=== PATIENT | male | born 1970 | race Caucasian/White ===

== ENCOUNTER 2019-05-02 10:22 | Outpatient (CLI) | payer MEDICARE, MEDICAID, SELFPAY ==
[2019-05-02 11:45] LABS: Alanine Aminotransferase 64 U/L (0-33); Albumin Level 4.2 g/dL (3.5-5.2); Alkaline Phosphatase 123 IU/L (35-105); Anion Gap 16.1 (5-19); Aspartate Amino Transferase 47 U/L (0-32); Blood Urea Nitrogen 11 mg/dL (6-20); Calcium 9.8 mg/Dl (8.6-10.0); Carbon Dioxide 25 mmol/L (22-29); Chloride 101 mmol/L (98-107); Free T4 Free Thyroxine 1.63 ng/dL (0.82-1.77); Globulin 3.2 g/dL (1.3-4.6); Glomerular Filtration Rate 71.8 mL/min (90-130); Glucose 102 mg/dL (74-109); Potassium 4.1 mmol/L (3.5-5.1); Sodium 138 mmol/L (136-145); Total Bilirubin 0.5 mg/dL (0.15-1.2); Total Protein 7.4 g/dL (6.6-8.7)
[2019-05-02 11:47] LABS: Testosterone Total 693.1 ng/dL (8.4-48.1)
[2019-05-03 15:11] LABS: Rapid Plasma Reagin Syphilis Nonreactive (Nonreactive)
== END 2019-05-02 10:23 | disposition home or self-care (01) ==
PROVIDERS: Family Provider Family Medicine; PCP Family Medicine; Visit Provider Family Medicine
DX: F64.0 Transsexualism (principal)
CPT/HCPCS: 36415; 80053; 84403; 84439; 86592

== ENCOUNTER → 2019-05-09 09:44 | Outpatient (BNVA) | payer MEDICARE, MEDICAID, SELFPAY | PROVIDERS: Family Provider Family Medicine; PCP Family Medicine; Visit Provider Family Medicine | DX: E55.9 Vitamin D deficiency, unspecified (principal); R03.0 Elevated blood-pressure reading, without diagnosis of hypertension; E03.9 Hypothyroidism, unspecified | CPT/HCPCS: 36415; 80053; 80061; 84443; 85025 ==

== ENCOUNTER → 2019-05-16 15:33 | Outpatient (BNVA) | payer MEDICARE, MEDICAID, SELFPAY | PROVIDERS: Family Provider Family Medicine; PCP Family Medicine; Visit Provider Family Medicine | DX: R73.09 Other abnormal glucose (principal) | CPT/HCPCS: 83036 ==

== ENCOUNTER → 2019-06-06 12:46 | Outpatient (BNVA) | payer MEDICARE, MEDICAID, SELFPAY | PROVIDERS: Family Provider Family Medicine; PCP Family Medicine; Visit Provider Nurse Practitioner Psychiatric/Mental Health | DX: F33.41 Major depressive disorder, recurrent, in partial remission (principal); F41.8 Other specified anxiety disorders; F43.12 Post-traumatic stress disorder, chronic; F41.1 Generalized anxiety disorder; F44.81 Dissociative identity disorder; G47.33 Obstructive sleep apnea (adult) (pediatric) | CPT/HCPCS: 99213 ==

== ENCOUNTER → 2019-07-20 09:24 | Outpatient (BNVA) | payer MEDICARE, MEDICAID, SELFPAY | PROVIDERS: Family Provider Family Medicine; PCP Family Medicine; Visit Provider Internal Medicine Rheumatology | DX: Z79.899 Other long term (current) drug therapy (principal); Z11.59 Encounter for screening for other viral diseases; E55.9 Vitamin D deficiency, unspecified; Z11.1 Encounter for screening for respiratory tuberculosis; M19.90 Unspecified osteoarthritis, unspecified site; Z72.89 Other problems related to lifestyle | CPT/HCPCS: 36415; 80076; 82306; 82565; 84550; 85025; 85651; 86140; 86431; 86480; 86704; 86803; 86812; 87340 ==

== ENCOUNTER → 2019-07-20 09:49 | Outpatient (BNVA) | payer MEDICARE, MEDICAID, SELFPAY | PROVIDERS: Family Provider Family Medicine; PCP Family Medicine; Visit Provider Internal Medicine Rheumatology | DX: E55.9 Vitamin D deficiency, unspecified (principal); Z79.899 Other long term (current) drug therapy; M19.90 Unspecified osteoarthritis, unspecified site; Z11.59 Encounter for screening for other viral diseases | CPT/HCPCS: 85025 ==

== ENCOUNTER → 2019-08-03 08:15 | Outpatient (BNVA) | payer MEDICARE, MEDICAID, SELFPAY | PROVIDERS: Family Provider Family Medicine; PCP Family Medicine; Visit Provider Nurse Practitioner Psychiatric/Mental Health | DX: F33.41 Major depressive disorder, recurrent, in partial remission (principal); F41.8 Other specified anxiety disorders; F43.12 Post-traumatic stress disorder, chronic; F41.1 Generalized anxiety disorder; F44.81 Dissociative identity disorder; G47.33 Obstructive sleep apnea (adult) (pediatric); F17.210 Nicotine dependence, cigarettes, uncomplicated | CPT/HCPCS: 99213 ==

== ENCOUNTER 2019-09-11 09:59 | Outpatient (CLI) | payer MEDICARE, MEDICAID, SELFPAY ==
[2019-09-11 10:47] LABS: Alanine Aminotransferase 89 U/L (0-33); Albumin Level 4.3 g/dL (3.5-5.2); Alkaline Phosphatase 120 IU/L (35-105); Anion Gap 15.1 (5-19); Aspartate Amino Transferase 64 U/L (0-32); Blood Urea Nitrogen 9 mg/dL (6-20); Calcium 9.7 mg/dL (8.5-10.5); Carbon Dioxide 26 mmol/L (22-29); Chloride 104 mmol/L (98-107); Globulin 3.3 g/dL (1.3-4.6); Glomerular Filtration Rate 80.1 mL/min (90-130); Glucose 112 mg/dL (65-115); Osmolality Calculated 289 mOsm/kg (285-295); Potassium 4.1 mmol/L (3.5-5.1); Sodium 141 mmol/L (136-145); Thyroid Stimulating Hormone 1.56 uIU/mL (0.27-4.20); Total Bilirubin 0.6 mg/dL (0.15-1.2); Total Protein 7.6 g/dL (6.6-8.7)
[2019-09-14 23:01] LABS: Testosterone, Free 47.6 pg/mL
== END 2019-09-11 10:00 | disposition home or self-care (01) ==
LOC: LAB 10:05
PROVIDERS: Family Provider Family Medicine; PCP Family Medicine; Visit Provider Family Medicine
DX: Z01.89 Encounter for other specified special examinations (principal)
CPT/HCPCS: 36415; 80053; 84402; 84443

== ENCOUNTER → 2019-10-04 08:11 | Outpatient (BNVA) | payer MEDICARE, MEDICAID, SELFPAY | PROVIDERS: Family Provider Family Medicine; PCP Family Medicine; Visit Provider Nurse Practitioner Psychiatric/Mental Health | DX: F33.41 Major depressive disorder, recurrent, in partial remission (principal); F41.8 Other specified anxiety disorders; F43.12 Post-traumatic stress disorder, chronic; F41.1 Generalized anxiety disorder; F44.81 Dissociative identity disorder; G47.33 Obstructive sleep apnea (adult) (pediatric) | CPT/HCPCS: 99213 ==

== ENCOUNTER → 2019-10-18 09:56 | Outpatient (BNVA) | payer MEDICARE, MEDICAID, SELFPAY | PROVIDERS: Family Provider Family Medicine; PCP Family Medicine; Visit Provider Internal Medicine Rheumatology | DX: Z79.899 Other long term (current) drug therapy (principal); M19.90 Unspecified osteoarthritis, unspecified site | CPT/HCPCS: 36415; 80076; 82565; 85025; 85651; 86140 ==

== ENCOUNTER → 2019-11-16 08:28 | Outpatient (BNVA) | payer MEDICARE, MEDICAID, SELFPAY | PROVIDERS: Family Provider Family Medicine; PCP Family Medicine; Visit Provider Nurse Practitioner Psychiatric/Mental Health | DX: F33.41 Major depressive disorder, recurrent, in partial remission (principal); F41.8 Other specified anxiety disorders; F43.12 Post-traumatic stress disorder, chronic; F41.1 Generalized anxiety disorder; F44.81 Dissociative identity disorder; G47.33 Obstructive sleep apnea (adult) (pediatric) | CPT/HCPCS: 99213 ==

== ENCOUNTER → 2019-12-13 11:44 | Outpatient (BNVA) | payer MEDICARE, MEDICAID, SELFPAY | PROVIDERS: Family Provider Family Medicine; PCP Family Medicine; Visit Provider Internal Medicine Rheumatology | DX: M02.30 Reiter's disease, unspecified site (principal); Z79.899 Other long term (current) drug therapy; K75.81 Nonalcoholic steatohepatitis (NASH) | CPT/HCPCS: 36415; 80076; 82565; 85025; 85651; 86140; 99214 ==

== ENCOUNTER 2019-12-20 08:22 | Outpatient (CLI) | payer MEDICARE, MEDICAID, SELFPAY ==
--- NOTE | 2019-12-20 09:00 | XR_ITS ---
WS: [id number] RIGHT FOOT: 3 VIEW(S) TECHNIQUE: AP, oblique and lateral. HISTORY: inflammatory arthritis COMPARISON: None available. No acute fracture or dislocation. Mild narrowing of the first metatarsophalangeal joint. Small subchondral erosions along the joint torey e. No terminal tuft erosion. No additional erosions along the joint line margins. There is a calcific density in the posterior ankle along the Achilles tendon. XR/XR foot RT min 3V* [id number] IMPRESSION: 1. Mild osteoarthritis. 2. 19 mm calcific density in the distal Achilles tendon is probably from a meño or injury.
--- NOTE | 2019-12-20 09:30 | XR_ITS ---
WS: [id number] LEFT FOOT: 3 VIEW(S) TECHNIQUE: AP, oblique and lateral. HISTORY: inflammatory arthritis COMPARISON: 05/22/2018 No acute fracture or dislocation. Normal tarsal/metatarsal alignment. No soft tissue abnormality or bone destruction. Small calcaneal spur. XR/XR foot LT min 3V* [id number] IMPRESSION: Small calcaneal spur. No erosions.
--- NOTE | 2019-12-20 10:00 | XR_ITS ---
WS: [id number] RIGHT HAND: 3 VIEW(S) TECHNIQUE: PA, oblique and lateral. HISTORY: inflammatory arthritis COMPARISON: None available. No acute fracture or dislocation. Mild interphalangeal joint space narrowing. No metacarpal head erosions. Mild narrowing of the carpal rows. No osteopenia. XR/XR hand RT min 3V* [id number] IMPRESSION: Mild osteoarthritis.
--- NOTE | 2019-12-20 10:30 | XR_ITS ---
WS: [id number] LEFT HAND: 3 VIEW(S) TECHNIQUE: PA, oblique and lateral. HISTORY: inflammatory arthritis COMPARISON: None available. Mild interphalangeal joint space narrowing. No erosion or subluxation. No osteopenia or soft tissue e clau. XR/XR hand LT min 3V* [id number] IMPRESSION: Mild osteoarthritis. No inflammatory erosions.
--- NOTE | 2019-12-20 11:00 | XR_ITS ---
WS: [id number] CHEST 2 VIEWS HISTORY: inflammatory arthritis COMPARISON: None available. Lungs: Clear with no abnormality. No pleural effusion or pneumothorax. Cardiac size: Normal. Mediastinum/Aorta: Normal mediastinum. Bones: Normal. XR/XR chest 2V* [id number] IMPRESSION: Normal chest.
== END 2019-12-20 08:23 | disposition home or self-care (01) ==
LOC: RADWPI 08:26
PROVIDERS: Family Provider Internal Medicine; PCP Internal Medicine; Visit Provider Internal Medicine Rheumatology
DX: M19.90 Unspecified osteoarthritis, unspecified site (principal); M19.042 Primary osteoarthritis, left hand; M19.041 Primary osteoarthritis, right hand; M77.32 Calcaneal spur, left foot; M19.071 Primary osteoarthritis, right ankle and foot
CPT/HCPCS: 71046; 73130; 73630

== ENCOUNTER → 2019-12-21 08:26 | Outpatient (BNVA) | payer MEDICARE, MEDICAID, SELFPAY | PROVIDERS: Family Provider Internal Medicine; PCP Internal Medicine; Visit Provider Nurse Practitioner Psychiatric/Mental Health | DX: F33.41 Major depressive disorder, recurrent, in partial remission (principal); M02.30 Reiter's disease, unspecified site; F41.8 Other specified anxiety disorders; F43.12 Post-traumatic stress disorder, chronic; F41.1 Generalized anxiety disorder; F44.81 Dissociative identity disorder; G47.33 Obstructive sleep apnea (adult) (pediatric) | CPT/HCPCS: 96372; 99213; G0463 ==

== ENCOUNTER 2020-01-19 15:35 | Emergency (ER) | payer MEDICARE, MEDICAID, SELFPAY ==
[2020-01-19 15:42] VITALS: BP 120/79; PULSE 96; RESP 18; TEMP 37.1; O2SAT 96; BMI 34.9
[2020-01-19 18:43] VITALS: BP 166/83; PULSE 78; RESP 16; O2SAT 94
--- NOTE | 2020-01-19 19:06 | XRR_ITS ---
PROCEDURE INFORMATION: Exam: XR Chest, 1 View Exam date and time: 01/19/2020 8:03 PM Age: 49 years old Clinical indication: Patient HX: Chest pain (mid chest) TECHNIQUE: Imaging protocol: XR of the chest Views: 1 view. COMPARISON: CR XR chest 2V* [id number] 12/20/2019 8:38 AM FINDINGS: Lungs: Lungs are clear bilaterally. Pleural space: No pleural effusion. No pneumothorax. Heart/Mediastinum: Stable mild enlargement of the cardiac silhouette. Mediastinal contours are unremarkable. Bones/joints: Unremarkable for age. XR/XR chest 1V portable [id number] IMPRESSION: 1. No acute cardiopulmonary process. 2. Incidental/nonacute findings are listed in the report.
--- NOTE | 2020-01-19 19:06 | ECG_ITS ---
[facility] Test Date: 2020-01-19 Pat Name: Nasim Samano Department: Room: Gender: Male Dispatcher Relay: : 1970 Requested By: Tone Oviedo I Order Number: [id number] Debi MD: Sarah Schreiber M.D. Measurements Intervals [place] Rate: 81 P: 54 DE: 146 QRS: 128 QRSD: 121 T: 45 QT: 366 QTc: 425 Interpretive Statements SINUS RHYTHM WITH SINUS ARRHYTHMIA INDETERMINATE AXIS RIGHT BUNDLE BRANCH BLOCK [120+ ms QRS DURATION, UPRIGHT V1, 40+ ms S IN I/aVL/V4/V5/V6] LEFT POSTERIOR FASCICULAR BLOCK [QRS AXIS > 109, INFERIOR Q] No previous ECG available for comparison Electronically Signed On 01-20-2020 17:03:06 CDT by Sarah Schreiber M.D. [id number]
[2020-01-19 20:24] LABS: Basophils # 0.1 10^3/uL (0.0-0.1); Basophils % 0.9 %; Eosinophils # 0.5 10^3/uL (0.0-0.8); Eosinophils % 5.5 %; Hematocrit 49.5 % (42.0-52.0); Hemoglobin 16.1 g/dL (11.7-16.6); Lymphocytes # 3.7 10^3/uL (0.8-4.8); Lymphocytes % 38.8 %; Mean Corpuscular HGB Conc 32.5 g/dL (30.0-36.0); Mean Corpuscular Hemoglobin 31.2 pg (28.0-34.0); Mean Corpuscular Volume 95.9 fL (80-94); Mean Platelet Volume 9.4 fL (7.4-10.4); Monocytes # 0.9 10^3/uL (0.2-0.9); Monocytes % 9.3 %; Neutrophils # 4.31 10^3/uL (1.8-7.7); Neutrophils % 45.2 %; Nucleated Red Blood Cells % 0 %; Platelet Count 294 10^3/cmm (130-400); Red Blood Count 5.16 10^6/uL (4.1-5.3); Red Cell Distribution Width 12.4 % (12.1-15.1); White Blood Count 9.6 10^3/uL (4.0-10.0)
[2020-01-19 20:48] LABS: Alanine Aminotransferase 118 U/L (0-41); Albumin Level 4.5 g/dL (3.5-5.2); Alkaline Phosphatase 133 IU/L (40-130); Aspartate Amino Transferase 101 U/L (0-40); Blood Urea Nitrogen 12 mg/dL (6-20); Calcium 9.4 mg/dL (8.5-10.5); Carbon Dioxide 26 mmol/L (22-29); Chloride 105 mmol/L (98-107); Globulin 2.8 g/dL (1.3-4.6); Glomerular Filtration Rate 90.4 mL/min (90-130); Glucose 93 mg/dL (65-115); Osmolality Calculated 291 mOsm/kg (285-295); Sodium 141 mmol/L (136-145); Total Bilirubin 0.6 mg/dL (0.15-1.2); Total Protein 7.3 g/dL (6.6-8.7)
[2020-01-19 20:52] LABS: Troponin(5th) Baseline 6 ng/L (0-15)
[2020-01-19 20:59] LABS: Anion Gap 14.1 (5-19); Potassium 4.1 mmol/L (3.5-5.1)
--- NOTE | 2020-01-19 21:06 | ECG_ITS ---
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 Measurements Intervals [place] Rate: 75 P: 62 HI: 168 QRS: 93 QRSD: 114 T: 56 QT: 382 QTc: 427 Interpretive Statements SINUS RHYTHM WITH SINUS ARRHYTHMIA BORDERLINE RIGHT AXIS DEVIATION [QRS AXIS > 90] INCOMPLETE RIGHT BUNDLE BRANCH BLOCK [90+ ms QRS DURATION, TERMINAL R IN V1/V2, 40+ ms S IN I/aVL/V4/V5/V6] No previous ECG available for comparison Electronically Signed On 01-20-2020 17:03:19 CDT by Sarah Schreiber M.D. [id number]
[2020-01-19 21:37] VITALS: BP 138/102; PULSE 68; RESP 18; O2SAT 96
--- NOTE | 2020-01-19 21:38 | PC.NURSE ---
EKG done at 2136 shown to ER doctor
--- NOTE | 2020-01-19 21:48 | USR_ITS ---
PROCEDURE INFORMATION: Exam: US Abdomen, Limited; Right Upper Quadrant Exam date and time: 01/19/2020 9:49 PM Age: 49 years old Clinical indication: Other: Chest pain; Additional info: Chest pain, elevated liver enzymes TECHNIQUE: Imaging protocol: US abdomen. Real time ultrasound with image documentation. Limited exam focused on the right upper quadrant. COMPARISON: US gall bladder [id number] 05/03/2018 9:48 AM FINDINGS: Liver: Slight increased echogenicity of the liver may indicate fatty infiltration. Otherwise unremarkable liver, no focal abnormality. Gallbladder: No cholelithiasis. No gallbladder wall thickening or pericholecystic fluid. The gallbladder does not appear abnormally distended at this time. Common bile duct: No biliary dilation, common duct measures about 5 mm. Pancreas: Visible pancreas unremarkable. Some of the pancreas is obscured by bowel gas. Right kidney: Images of the right kidney show no hydronephrosis. US/US gall bladder [id number] IMPRESSION: 1. No cholelithiasis or biliary tree dilation. 2. Possible fatty infiltration of the liver. 3. Other findings discussed above.
[2020-01-19 21:54] VITALS: BP 163/101; PULSE 66; RESP 18; O2SAT 97
--- NOTE | 2020-01-19 21:59 | ED_ITS ---
HPI - Chest Pain General: Chief Complaint: Chest Pain Stated Complaint: Cardiac Complications/sent by [facility] Time Seen by Provider: 01/19/20 21:06 Source: patient Mode of arrival: ambulatory Limitations: no limitations History of Present Illness: HPI narrative: Patient has been feeling unwell for several days and went to see his primary care provider today. He has had some left-sided chest pain with radiation down his left arm. His PCP performed an EKG and he and they were concerned and so sent him here for evaluation. Currently he is chest pain-free MD complaint: chest pain Onset (ago): day(s) Timing of current episode: episodic Prior episodes: No Onset: during rest Pain location: left chest Pain radiation: left arm Severity: moderate Quality: heaviness Relieving factors: nothing Exacerbating factors: nothing Associated symptoms: Reports nausea; Deny abdominal pain, diaphoresis, dyspnea, fever(s), leg edema, palpitations, sense of impending doom, syncope or vomiting Review of Systems General: Reports: 10 or more systems reviewed and unremarkable except in HPI and below Const: Denies: fever(s) or diaphoresis Eyes: Denies: change in vision or blurry vision ENMT: Denies: throat pain, enlarged tonsils, odynophagia, hoarseness, mouth pain or swelling of lips/tongue Card: Denies: palpitations or syncope Resp: Denies: dyspnea GI: Reports: nausea; Denies: abdominal pain or vomiting : Denies: flank pain, dysuria, urinary frequency, urinary urgency or urinary hesitancy Musc: Denies: neck pain, back pain or extremity swelling Skin/Breast: Denies: rash, pruritus or erythema Neuro: Denies: headache(s), numbness in extremities or weakness in extremities Endo: Denies: polyuria, polydipsia or tired all the time PFSH ED PFSH: Medical History Acute gastritis without bleeding Chronic joint pain Chronic post-traumatic stress disorder Dissociative identity disorder Elevated hemoglobin Elevated testosterone level Enrolled in chronic care management Generalized anxiety disorder High risk medication use Hypothyroidism Immunization counseling Inflammatory arthritis Major depressive disorder, recurrent episode, in partial remission with anxious distress MÉNDEZ (nonalcoholic steatohepatitis) Obstructive sleep apnea DAVONTE on CPAP Reactive arthritis Teresa's syndrome Vitamin D deficiency Surgical History H/O bilateral breast reduction surgery H/O rhinoplasty H/O thyroidectomy H/O: hysterectomy Family History Other Cancer Diabetes Denies family history of Anesthesia complication Bleeding disorder Social History Smoking and tobacco status: never smoked Alcohol intake: never Lives independently: Yes Marital status: Single Current occupational status: student Pets and animals: Yes (service dog and cat) Pets & animals: cat(s) and dog(s) History of recent travel: No Current gender identity: Trans [id number] Physical Exam Const: COMMON NORMALS: no acute distress, average body habitus, patient oriented x3, no limitations, healthy appearing, alert and well nourished HENMT: COMMON NORMALS: normocephalic, atraumatic and moist oral mucous membranes HEAD & SCALP: normocephalic and atraumatic Neck/C-Spine: COMMON NORMALS: no meningeal signs and no JVD Resp: COMMON NORMALS: normal respiratory effort, No retractions, No use of accessory muscles, clear to auscultation bilaterally and percussion normal AUSCULTATION: clear to auscultation bilaterally PERCUSSION: percussion normal Cardio: COMMON NORMALS: no JVD, regular rate, regular rhythm, S1 normal heart sound present, S2 normal heart sound present, No gallops present (Cardio), No clicks present (Cardio), No murmurs present (Cardio), No rub (Cardio) and Flori pheral pulses 2+ throughout RATE: regular rate RHYTHM: regular rhythm HEART SOUNDS: S1 normal heart sound present and S2 normal heart sound present PERIPHERAL PULSES: Peripheral pulses 2+ throughout GI: COMMON NORMALS: Normal to inspection, nondistended, normoactive bowel sounds present, Soft to palpation, non-tender, No hepatosplenomegaly present, no masses and no bruits PALPATION: Yes Soft to palpation and Yes No hepatosplenomegaly present Extremity: COMMON NORMALS: normal to inspection, full ROM, capillary refill normal, no calf tenderness and no pedal edema Neuro: COMMON NORMALS: patient oriented x3 SENSORIUM/ORIENTATION: Yes alert MENINGEAL SIGNS: Yes no meningeal signs Skin: COMMON NORMALS: no rashes or lesions noted, no wounds, turgor normal, no jaundice, no petechiae and no mottling GENERAL SKIN EXAM: no rashes or lesions noted and turgor normal Course Reevaluation(s): Reevaluation #1: Discussed his lab and imaging findings with him. Repeat troponin negative as well as his baseline. He has elevated liver enzymes and so had ordered an ultrasound which turned out to be negative but showed some fatty liver. 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 We will discharge him home with no new orders as he has no cardiac cause for his chest pain. He voiced understanding and is in agreement with the plan Time: 23:33 Vital Signs: Vital signs: Vital Signs Temperature 98.7 F 01/19/20 15:42 Pulse Rate 66 01/19/20 21:54 Respiratory Rate 18 01/19/20 21:54 Blood Pressure 163/101 01/19/20 21:54 Pulse Oximetry 97 01/19/20 21:54 MDM - Chest Pain MDM Narrative: Medical decision making narrative: Patient who went to see his primary care provider today and they were concerned that the patient had a cardiac event. He was sent here for evaluation however evaluation was negative with negative high-sensitivity troponin x2. Liver enzymes are little elevated and a gallbladder ultrasound done was negative for gallbladder disease. He however has fatty liver and the patient knows that and follows with his primary care provider for these. He is therefore discharged home with no new orders. Medical Records: Attestation: I reviewed the patient's medical records. Lab Data: Attestation: I reviewed the patient's lab results. Labs: Lab Results 01/19/20 01/19/20 01/19/20 Range/Units 19:53 19:53 19:53 WBC 9.6 (4.0-10.0) 10^3/ uL RBC 5.16 (4.1-5.3) 10^6/u L Hgb 16.1 (11.7-16.6) g/dL Hct 49.5 (42.0-52.0) % MCV 95.9 H (80-94) fL MCH 31.2 (28.0-34.0) pg MCHC 32.5 (30.0-36.0) g/dL RDW 12.4 (12.1-15.1) % Plt Count 294 (130-400) 10^3/c mm MPV 9.4 (7.4-10.4) fL Neut % (Auto) 45.2 % Lymph % (Auto) 38.8 % Riley % (Auto) 9.3 % Eos % (Auto) 5.5 % Baso % (Auto) 0.9 % Neut # (Auto) 4.31 (1.8-7.7) 10^3/u L Lymph # (Auto) 3.7 (0.8-4.8) 10^3/u L Riley # (Auto) 0.9 (0.2-0.9) 10^3/u L Eos # (Auto) 0.5 (0.0-0.8) 10^3/u L Baso # (Auto) 0.1 (0.0-0.1) 10^3/u L Nucleated RBC % (a uto) 0 % Nucleated RBCs # 0.0 /100WBC Sodium 141 (136-145) mmol/L Potassium 4.1 (3.5-5.1) mmol/L Chloride 105 (98-107) mmol/L Carbon Dioxide 26 (22-29) mmol/L Anion Gap 14.1 (5-19) BUN 12 (6-20) mg/dL Creatinine 0.9 (0.7-1.2) mg/dL GFR Calculation 90.4 (90-130) mL/min Glucose 93 (65-115) mg/dL Calculated Osmolal ity 291 (285-295) mOsm/k g Calcium 9.4 (8.5-10.5) mg/dL Total Bilirubin 0.6 (0.15-1.2) mg/dL AST 101 H (0-40) U/L ALT 118 H (0-41) U/L Alkaline Phosphata se 133 H (40-130) IU/L Troponin T Baselin e 6 (0-15) ng/L Troponin T 120 Min [place] (0-15) ng/L Delta Troponin T (0-10) ABS# Total Protein 7.3 (6.6-8.7) g/dL Albumin 4.5 (3.5-5.2) g/dL Globulin 2.8 (1.3-4.6) g/dL 01/19/20 Range/Units 21:53 WBC (4.0-10.0) 10^3/ uL RBC (4.1-5.3) 10^6/u L Hgb (11.7-16.6) g/dL Hct (42.0-52.0) % MCV (80-94) fL MCH (28.0-34.0) pg MCHC (30.0-36.0) g/dL RDW (12.1-15.1) % Plt Count (130-400) 10^3/c mm MPV (7.4-10.4) fL Neut % (Auto) % Lymph % (Auto) % Riley % (Auto) % Eos % (Auto) % Baso % (Auto) % Neut # (Auto) (1.8-7.7) 10^3/u L Lymph # (Auto) (0.8-4.8) 10^3/u L Riley # (Auto) (0.2-0.9) 10^3/u L Eos # (Auto) (0.0-0.8) 10^3/u L Baso # (Auto) (0.0-0.1) 10^3/u L Nucleated RBC % (a uto) % Nucleated RBCs # /100WBC Sodium (136-145) mmol/L Potassium (3.5-5.1) mmol/L Chloride (98-107) mmol/L Carbon Dioxide (22-29) mmol/L Anion Gap (5-19) BUN (6-20) mg/dL Creatinine (0.7-1.2) mg/dL GFR Calculation (90-130) mL/min Glucose (65-115) mg/dL Calculated Osmolal ity (285-295) mOsm/k g Calcium (8.5-10.5) mg/dL Total Bilirubin (0.15-1.2) mg/dL AST (0-40) U/L ALT (0-41) U/L Alkaline Phosphata se (40-130) IU/L Troponin T Baselin e (0-15) ng/L Troponin T 120 Min [place] 6.00 (0-15) ng/L Delta Troponin T 0 (0-10) ABS# Total Protein (6.6-8.7) g/dL Albumin (3.5-5.2) g/dL Globulin (1.3-4.6) g/dL Imaging Data^: CXR: Radiologist's impression: [place] [address] XRay Report Signed Patient: Declan Samano #: [id number] : 1970Acct#:[id number] Age/Sex: 49 / MADM Date: 01/19/20 Loc: ERRoom/Bed: Attending Dr: Ordering Provider/Ordering MD: Nick Fuller DO Date of Service: 01/19/20 Procedure(s): XR chest 1V portable [id number] Accession Number(s): [id number] Report Number: [id number] PROCEDURE INFORMATION: Exam: XR Chest, 1 View Exam date and time: 01/19/2020 8:03 PM Age: 49 years old Clinical indication: Patient HX: Chest pain (mid chest) TECHNIQUE: Imaging protocol: XR of the chest Views: 1 view. COMPARISON: CR XR chest 2V* [id number] 12/20/2019 8:38 AM FINDINGS: Lungs: Lungs are clear bilaterally. Pleural space: No pleural effusion. No pneumothorax. Heart/Mediastinum: Stable mild enlargement of the cardiac silhouette. Mediastinal contours are unremarkable. Bones/joints: Unremarkable for age. XR/XR chest 1V portable [id number] IMPRESSION: 1. No acute cardiopulmonary process. 2. Incidental/nonacute findings are listed in the report. Dictated By:Chary Kuhn MD Signed By:Chary Kuhn MDSigned Date/Time:01/19/202105 DD/ 05 US: Radiologist's impression: [place] [address] Ultrasound Report Signed Patient: Declan Samano #: [id number] : 1970Acct#:[id number] Age/Sex: 49 / MADM Date: 01/19/20 Loc: ERRoom/Bed: Attending Dr: Ordering Provider/Ordering MD: Tone O[place]o MD, [facility] [place] of Service: 01/19/20 Procedure(s): US gall bladder [id number] Accession Number(s): [id number] Report Number: [id number] PROCEDURE INFORMATION: Exam: US Abdomen, Limited; Right Upper Quadrant Exam date and time: 01/19/2020 9:49 PM Age: 49 years old Clinical indication: Other: Chest pain; Additional info: Chest pain, elevated liver enzymes TECHNIQUE: Imaging protocol: US abdomen. Real time ultrasound with image documentation. Limited exam focused on the right upper quadrant. COMPARISON: US gall bladder [id number] 05/03/2018 9:48 AM FINDINGS: Liver: Slight increased echogenicity of the liver may indicate fatty infiltration. Otherwise unremarkable liver, no focal abnormality. Gallbladder: No cholelithiasis. No gallbladder wall thickening or pericholecystic fluid. The gallbladder does not appear abnormally distended at this time. Common bile duct: No biliary dilation, common duct measures about 5 mm. Pancreas: Visible pancreas unremarkable. Some of the pancreas is obscured by bowel gas. Right kidney: Images of the right kidney show no hydronephrosis. US/US gall bladder [id number] IMPRESSION: 1. No cholelithiasis or biliary tree dilation. 2. Possible fatty infiltration of the liver. 3. Other findings discussed above. Dictated By:Yohan Coulter MD Signed By:Yohan Coulter MDSigned Date/Time:01/19/202312 DD/ 11 EKG Data^: EKG 1: Attestation: I personally reviewed and interpreted this EKG as follows: EKG interpretation date: 01/19/20 EKG interpretation time: 15:50 Prior EKG tracings: not available for review Interpretation: Sinus rhythm with sinus arrhythmia. Heart rate 86 bpm. Right bundle branch block. No STEMI. EKG 2: Attestation: I personally reviewed and interpreted this EKG as follows: EKG interpretation date: 01/19/20 EKG interpretation time: 21:29 Prior EKG tracings: available for review Interpretation: Unchanged from earlier today. Heart rate 75 bpm. Sinus rhythm with sinus arrhythmia. Right bundle branch block. No STEMI. Discharge Plan Discharge Patient Disposition: Home Clinical Impression: Non-cardiac chest pain, MÉNDEZ (nonalcoholic steatohepatitis) Condition: Stable Prescriptions: Continued aspirin 81 mg tablet,delayed release (DR/EC) 81 mg PO ONCE RF: 0 testosterone cypionate 200 mg/mL oil 100 mg IM .Every 2 weeks RF: 0 metformin [Glucophage] 500 mg tablet 250 mg PO DAILY RF: 0 chlorpheniramine maleate [ChlorTabs] 4 mg tablet 4 mg PO Q6H PRNRF: 0 mirtazapine 7.5 mg tablet 3.75 mg PO .QHS PRN (Reason: sleep) Qty: 15 RF: 4 hydroxyzine pamoate [Vistaril] 50 mg capsule 50 mg PO BID PRN (Reason: anxiety) Qty: 60 RF: 4 bupropion HCl [Wellbutrin XL] 300 mg tablet extended release 24 hr 300 mg PO QAM Qty: 90 RF: 2 Enbrel Mini 50 mg/mL (1 mL) cartridge 50 mg SUBCUT .weekly Qty: 4 RF: 3 cholecalciferol (vitamin D3) 50,000 unit capsule 50,000 unit PO .EVERY 2 WEEKS Qty: 6 RF: 1 levothyroxine 100 mcg capsule 100 mcg PO DAILY RF: 0 pantoprazole 40 mg tablet,delayed release (DR/EC) 40 mg PO DAILY Qty: 30 RF: 3 (DME) blood-glucose meter [Accu-Chek Cherri Plus Meter] Misc See Rx Instructions .ROUTE .MEDSUPPLY Qty: 1 RF: 0 (DME) Accu-Chek Cherri Plus test strp Strip See Rx Instructions .ROUTE .MEDSUPPLY Qty: 100 RF: 0 montelukast [Singulair] 10 mg tablet 10 mg PO DAILY Qty: 30 RF: 2 prednisone 10 mg tablet See Rx Instructions PO DAILY Qty: 30 RF: 0 Discharge Orders: Discharge Order (Routine); Ordered 01/19/20 Ordered By: Tone Oviedo Referrals: Vaishali Ramirez DO [Primary Care Provider] - 1-3 days Discharge Diet: Usual diet Discharge Activity: Increase activity as tolerated Patient Instructions: Chest Pain (ED), Non-Alcoholic Fatty Liver Disease (ED) Activity Restrictions/Additional Instructions: Return for any new or worsening symptoms. Follow-up with your primary care provider within 3 days. Coding Level of Care Code ED Laboratory Phlebotomist for Abiodung Fwd Exam Comprehensive
[2020-01-19 22:22] LABS: Troponin 5 2HR Delta 0 ABS# (0-10)
[2020-01-19 23:53] VITALS: BP 142/90; PULSE 56; RESP 14; O2SAT 93
== END 2020-01-19 23:54 | disposition home or self-care (01) ==
PROVIDERS: Family Medicine; Emergency Provider Family Medicine; PCP Internal Medicine
DX: R07.89 Other chest pain (principal); K75.81 Nonalcoholic steatohepatitis (NASH); Z79.82 Long term (current) use of aspirin
CPT/HCPCS: 12345; 36415; 71045; 76705; 80053; 84484; 85025; 93005; 99282; 99283

== ENCOUNTER → 2020-01-24 16:12 | Outpatient (BNVA) | payer MEDICARE, MEDICAID, SELFPAY | PROVIDERS: PCP Internal Medicine; Visit Provider Nurse Practitioner | DX: R11.0 Nausea (principal) | CPT/HCPCS: 81000 ==

== ENCOUNTER → 2020-01-29 14:51 | Outpatient (BNVA) | payer MEDICARE, MEDICAID, SELFPAY | PROVIDERS: PCP Internal Medicine; Visit Provider Internal Medicine Rheumatology | DX: M02.30 Reiter's disease, unspecified site (principal); M19.90 Unspecified osteoarthritis, unspecified site; Z79.899 Other long term (current) drug therapy; E55.9 Vitamin D deficiency, unspecified; E11.9 Type 2 diabetes mellitus without complications; N39.0 Urinary tract infection, site not specified; Z79.84 Long term (current) use of oral hypoglycemic drugs | CPT/HCPCS: 99214 ==

== ENCOUNTER → 2020-01-30 08:27 | Outpatient (BNVA) | payer MEDICARE, MEDICAID, SELFPAY | PROVIDERS: Family Provider Internal Medicine; PCP Internal Medicine; Visit Provider Nurse Practitioner Psychiatric/Mental Health | DX: F33.41 Major depressive disorder, recurrent, in partial remission (principal); F41.8 Other specified anxiety disorders; F43.12 Post-traumatic stress disorder, chronic; F41.1 Generalized anxiety disorder; F44.81 Dissociative identity disorder; G47.33 Obstructive sleep apnea (adult) (pediatric) | CPT/HCPCS: 99213 ==

== ENCOUNTER → 2020-02-16 13:46 | Outpatient (BNVA) | payer MEDICARE, MEDICAID, SELFPAY | PROVIDERS: PCP Internal Medicine; Visit Provider Surgery | DX: Z11.59 Encounter for screening for other viral diseases (principal) | CPT/HCPCS: 87635 ==

== ENCOUNTER 2020-02-21 06:04 | Day surgery (SDC) | payer MEDICARE, MEDICAID, SELFPAY ==
[2020-02-16 08:10] VITALS: BMI 34.5
[2020-02-21 06:24] VITALS: BP 140/106; PULSE 103; RESP 18; TEMP 36.1; O2SAT 94
--- NOTE | 2020-02-21 06:40 | ANES.PREANE2 ---
Pre-Anesthetic Assessment Pre-Anesthetic Assessment: Height/Weight: Height 1.78 m Weight 109.316 kg Temp Pulse Resp BP Pulse Ox 97 F L 103 H 18 140/106 94 02/21/20 06:24 02/21/20 06:24 02/21/20 06:24 02/21/20 06:24 02/21/20 06:24 Preop Diagnosis: Blood in stool Proposed Procedure: Operation Date: 02/21/20 07:00 Proposed Procedures p Colonoscopy 18637 R19.5(Not Applicable) - Wilder Gardner MD Familial anesthetic complications: None Was Beta Tee taken within 24 hours: N/A Last intake: Intake Last Liquid Date 02/20/20 Last Liquid Time 22:00 Last Solid Date 02/19/20 Last Solid Time 02:00 Social: Social History: No alcohol and No tobacco Exam: Pre-Anes Outpt Exam: alert, oriented x 3, clear to auscultation bilaterally and regular rate & rhythm Airway: Cervical ROM: WNL MP: 4 Dentition: Full Additional comments: large neck circumference - tongue ring in will remove Pulmonary: Pulmonary: Sleep apnea (cpap) Hepatic: Comments: fatty liver Metabolic: Metabolic: DM and Thyroid (no thyroid) Musc/skel: Comments: ?dislocated ankles Neuropsych: Comments: I have very bad PTSD Anesthetic Plan: ASA status: 2 Anesthesia: MAC Risk of > 500 ml blood loss (7ml/kg in children): No PFSH Anesthesia PFSH: Medical History (Updated 01/29/20 @ 15:44 by Sajan Sharma MD) Acute gastritis without bleeding Chronic joint pain Chronic post-traumatic stress disorder Dissociative identity disorder Elevated hemoglobin Elevated testosterone level Enrolled in chronic care management Generalized anxiety disorder High risk medication use Hypothyroidism Immunization counseling Inflammatory arthritis Major depressive disorder, recurrent episode, in partial remission with anxious distress MÉNDEZ (nonalcoholic steatohepatitis) Obstructive sleep apnea DAVONTE on CPAP Reactive arthritis Teresa's syndrome Urinary tract infection Vitamin D deficiency Surgical History H/O bilateral breast reduction surgery H/O rhinoplasty H/O thyroidectomy H/O: hysterectomy Family History Other Cancer Diabetes Denies family history of Anesthesia complication Bleeding disorder Social History Smoking and tobacco status: never smoked Alcohol intake: never Lives independently: Yes Marital status: Single Current occupational status: student Pets and animals: Yes (service dog and cat) Pets & animals: cat(s) and dog(s) History of recent travel: No Current gender identity: Trans [id number] Data Anesthesia Cardiac Studies: No Data to Display
[2020-02-21 06:41] LABS: Glucose Point of Care 97 mg/dL (70-110)
[2020-02-21] MEDS: sodium chloride 0.9% 1,000 ML 30 ML IV (06:57)
--- NOTE | 2020-02-21 07:05 | P.HP_ITS ---
Same Day Surgery H&P Indication for Procedure/HPI DATE OF PROCEDURE: February 21, 2020 CHIEF COMPLAINT/INDICATIONFOR SURGICAL PROCEDURE: Blood in stool PREOP DIAGNOSIS: Blood in stool PLANNED PROCEDRUE: Operation Date: 02/21/20 07:00 Proposed Procedures p Colonoscopy 24655 R19.5(Not Applicable) - Wilder Gardner MD This is a pleasant 49 years old patient presents with history of blood in stool. Patient is scheduled for a colonoscopy to rule out underlying neoplasia or any other etiologies. ROS All systems have been reviewed negative except as per the above or per problem list Medications/Allergies* Home Medications Medication Instructions Recorded Confirmed Type aspirin 81 mg tablet,delayed 81 mg PO ONCE 04/29/19 02/21/20 History release levothyroxine 100 mcg capsule 100 mcg PO DAILY 07/19/19 02/21/20 History testosterone cypionate 200 mg/mL 100 mg IM .Every 2 weeks ml 07/19/19 02/21/20 History intramuscular oil chlorpheniramine maleate 4 mg 4 mg PO Q6H PRN 11/15/19 02/21/20 History tablet metformin 500 mg tablet 250 mg PO DAILY tab 11/15/19 02/21/20 History Allergies/Adverse Reactions Allergy/AdvReac Type Severity Reaction Status Date / Time Penicillins Allergy Unknown swelling Verified 02/21/20 07:06 diazepam [From Valium] Allergy Unknown Verified 02/21/20 07:06 prazosin Allergy Unknown Verified 02/21/20 07:06 sulfasalazine AdvReac Mild nausea Verified 02/21/20 07:06 vomiting Pertinent History/Comorbid Conditions* Medical History (Updated 01/29/20 @ 15:44 by Sajan Sharma MD) Acute gastritis without bleeding Chronic joint pain Chronic post-traumatic stress disorder Dissociative identity disorder Elevated hemoglobin Elevated testosterone level Enrolled in chronic care management Generalized anxiety disorder High risk medication use Hypothyroidism Immunization counseling Inflammatory arthritis Major depressive disorder, recurrent episode, in partial remission with anxious distress MÉNDEZ (nonalcoholic steatohepatitis) Obstructive sleep apnea DAVONTE on CPAP Reactive arthritis Teresa's syndrome Urinary tract infection Vitamin D deficiency Surgical History (Updated 05/09/19 @ 09:17 by Miriam Carvajal DO) H/O bilateral breast reduction surgery H/O rhinoplasty H/O thyroidectomy H/O: hysterectomy Family History (Updated 01/04/20 @ 10:18 by Vaishali Knight LPN) Diabetes Cancer Denies family history of Anesthesia complication Bleeding disorder Social History Smoking and tobacco status: never smoked Alcohol intake: never Lives independently: Yes Marital status: Single Current occupational status: student Pets and animals: Yes (service dog and cat) Pets & animals: cat(s) and dog(s) History of recent travel: No Current gender identity: Trans [id number] Pertinent Exam Findings alert, oriented x 3, clear to auscultation bilaterally and procedure specific exam findings (Abdominal examination nontender nondistended soft) Recommendations Surgery/Procedure today (Colonoscopy with possible biopsy and possible polypectomy) Coding Level of Care Code Acute Care Transitions Manager for Lisseth Zavaleta
[2020-02-21 07:40] VITALS: BP 123/78; PULSE 79; RESP 18; TEMP 36.9; O2SAT 90
[2020-02-21 08:08] VITALS: BP 128/78; PULSE 72; RESP 16; O2SAT 93
--- NOTE | 2020-02-21 08:10 | ANE.PACU2 ---
Inpatient post-anesthesia follow up: Airway intact: Yes Vital signs: Temperature 98.4 F Pulse Rate 72 Respiratory Rate 16 Blood Pressure 128/78 Pulse Oximetry 93 Oxygen Delivery Me thod Room Air Oxygen Flow Rate 5 Fraction of Inspir ed Oxygen Hydration adequate: Yes Nausea and vomiting: No Pain level: 2 Mental status: Baseline
== END 2020-02-21 08:10 | disposition home or self-care (01) ==
PROVIDERS: PCP Internal Medicine; Visit Provider Surgery
PROC: 0DJD8ZZ Inspection of Lower Intestinal Tract, Via Natural or Artificial Opening Endoscopic (ICD-10-PCS; CPT 45378; principal; 2020-02-21 07:00)
DX: K92.1 Melena (principal); D12.4 Benign neoplasm of descending colon; D12.5 Benign neoplasm of sigmoid colon; K62.1 Rectal polyp; Z79.82 Long term (current) use of aspirin; Z79.84 Long term (current) use of oral hypoglycemic drugs; E03.9 Hypothyroidism, unspecified; G47.33 Obstructive sleep apnea (adult) (pediatric); F41.9 Anxiety disorder, unspecified; M19.90 Unspecified osteoarthritis, unspecified site
CPT/HCPCS: 12345; 36416; 45385; 82962; 88305; J2704; J7030

== ENCOUNTER → 2020-04-01 07:47 | Outpatient (BNVA) | payer MEDICARE, MEDICAID, SELFPAY | PROVIDERS: PCP Internal Medicine; Visit Provider Nurse Practitioner Psychiatric/Mental Health | DX: F33.41 Major depressive disorder, recurrent, in partial remission (principal); F41.8 Other specified anxiety disorders; F43.12 Post-traumatic stress disorder, chronic; F41.1 Generalized anxiety disorder; F44.81 Dissociative identity disorder | CPT/HCPCS: 99214 ==

== ENCOUNTER → 2020-04-13 11:47 | Outpatient (BNVA) | payer MEDICARE, MEDICAID, SELFPAY | PROVIDERS: PCP Internal Medicine; Visit Provider Nurse Practitioner | DX: Z20.828 Contact with and (suspected) exposure to other viral communicable diseases (principal) | CPT/HCPCS: 87635 ==

== ENCOUNTER → 2020-05-09 09:03 | Outpatient (BNVA) | payer MEDICARE, MEDICAID, SELFPAY | PROVIDERS: PCP Internal Medicine; Visit Provider Nurse Practitioner Psychiatric/Mental Health | DX: F33.41 Major depressive disorder, recurrent, in partial remission (principal); F41.8 Other specified anxiety disorders; F43.12 Post-traumatic stress disorder, chronic; F41.1 Generalized anxiety disorder; F44.81 Dissociative identity disorder; G47.33 Obstructive sleep apnea (adult) (pediatric); F33.9 Major depressive disorder, recurrent, unspecified | CPT/HCPCS: 99213 ==

== ENCOUNTER → 2020-06-24 16:43 | Outpatient (BNVA) | payer MEDICARE, MEDICAID, SELFPAY | PROVIDERS: PCP Internal Medicine; Visit Provider Internal Medicine | DX: R76.8 Other specified abnormal immunological findings in serum (principal); B19.20 Unspecified viral hepatitis C without hepatic coma; B18.2 Chronic viral hepatitis C | CPT/HCPCS: 80053; 86705; 86706; 86709; 86803; 87340; 87522 ==

== ENCOUNTER → 2020-06-28 07:30 | Outpatient (BNVA) | payer MEDICARE, MEDICAID, SELFPAY | PROVIDERS: PCP Internal Medicine; Visit Provider Nurse Practitioner Psychiatric/Mental Health | DX: F33.41 Major depressive disorder, recurrent, in partial remission (principal); F41.8 Other specified anxiety disorders; F43.12 Post-traumatic stress disorder, chronic; F41.1 Generalized anxiety disorder; F44.81 Dissociative identity disorder; G47.33 Obstructive sleep apnea (adult) (pediatric); F33.9 Major depressive disorder, recurrent, unspecified | CPT/HCPCS: 99214 ==

== ENCOUNTER → 2020-07-04 15:43 | Outpatient (BNVA) | payer MEDICARE, MEDICAID, SELFPAY | PROVIDERS: PCP Internal Medicine; Visit Provider Internal Medicine Rheumatology | DX: M02.30 Reiter's disease, unspecified site (principal); Z79.899 Other long term (current) drug therapy; M19.90 Unspecified osteoarthritis, unspecified site; K75.81 Nonalcoholic steatohepatitis (NASH) | CPT/HCPCS: 36415; 85025; 99214 ==

== ENCOUNTER 2020-08-05 06:56 | Outpatient (CLI) | payer MEDICARE, MEDICAID, SELFPAY ==
--- NOTE | 2020-08-05 07:15 | US_ITS ---
WS: [id number] RIGHT UPPER QUADRANT ULTRASOUND HISTORY: R76.8 - Other specified abnormal immunological findings in serum COMPARISON: 01/19/2020 Liver: 17.7 cm in length. Moderately enlarged liver. Moderate attenuation from hepatic steatosis. No bile duct dilatation or mass. Surface of the liver is slightly irregular and nodular. Gallbladder: Normally distended gallbladder. Small amount of sludge within the gallbladder. CBD: 0.5 cm Pancreas: Poorly visualized pancreas. Tail is obscured. Poor visualization of the head. Right kidney: 11.1 cm in length. Normal size and echogenicity. No hydronephrosis or mass. Aorta and IVC: Unremarkable abdominal aorta and IVC. No ascites. US/US liver [id number] IMPRESSION: 1. Moderate hepatomegaly with hepatocellular disease and changes suspicious fo r cirrhosis. 2. Small amount of sludge in the gallbladder with no stones. 3. Poorly visualized pancreas.
== END 2020-08-05 06:57 | disposition home or self-care (01) ==
LOC: RAD 06:57
PROVIDERS: PCP Internal Medicine; Visit Provider Internal Medicine
DX: R76.8 Other specified abnormal immunological findings in serum (principal); R16.0 Hepatomegaly, not elsewhere classified; K76.9 Liver disease, unspecified
CPT/HCPCS: 76705

== ENCOUNTER → 2020-08-07 08:59 | Outpatient (BNVA) | payer MEDICARE, MEDICAID, SELFPAY | PROVIDERS: PCP Internal Medicine; Visit Provider Nurse Practitioner Psychiatric/Mental Health | DX: F33.9 Major depressive disorder, recurrent, unspecified (principal); F43.12 Post-traumatic stress disorder, chronic; F41.1 Generalized anxiety disorder; F44.81 Dissociative identity disorder; G47.33 Obstructive sleep apnea (adult) (pediatric) | CPT/HCPCS: 99214 ==

== ENCOUNTER → 2020-08-08 15:24 | Outpatient (BNVA) | payer MEDICARE, MEDICAID, SELFPAY | PROVIDERS: PCP Internal Medicine; Visit Provider Internal Medicine | DX: K75.81 Nonalcoholic steatohepatitis (NASH) (principal) | CPT/HCPCS: 80061 ==

== ENCOUNTER → 2020-08-19 08:32 | Outpatient (BNVA) | payer MEDICARE, MEDICAID, SELFPAY | PROVIDERS: PCP Internal Medicine; Visit Provider Nurse Practitioner Psychiatric/Mental Health | DX: F33.9 Major depressive disorder, recurrent, unspecified (principal); F43.12 Post-traumatic stress disorder, chronic; F41.1 Generalized anxiety disorder; F44.81 Dissociative identity disorder; G47.33 Obstructive sleep apnea (adult) (pediatric) | CPT/HCPCS: 99214 ==

== ENCOUNTER → 2020-09-02 08:27 | Outpatient (BNVA) | payer MEDICARE, MEDICAID, SELFPAY | PROVIDERS: PCP Internal Medicine; Visit Provider Nurse Practitioner Psychiatric/Mental Health | DX: F33.9 Major depressive disorder, recurrent, unspecified (principal); F43.12 Post-traumatic stress disorder, chronic; F41.1 Generalized anxiety disorder; F44.81 Dissociative identity disorder; G47.33 Obstructive sleep apnea (adult) (pediatric) | CPT/HCPCS: 99214 ==

== ENCOUNTER → 2020-09-16 08:55 | Outpatient (BNVA) | payer MEDICARE, MEDICAID, SELFPAY | PROVIDERS: PCP Internal Medicine; Visit Provider Nurse Practitioner Psychiatric/Mental Health | DX: F33.9 Major depressive disorder, recurrent, unspecified (principal); F43.12 Post-traumatic stress disorder, chronic; F41.1 Generalized anxiety disorder; F44.81 Dissociative identity disorder; G47.33 Obstructive sleep apnea (adult) (pediatric) | CPT/HCPCS: 99214 ==

== ENCOUNTER → 2020-09-30 08:13 | Outpatient (BNVA) | payer MEDICARE, MEDICAID, SELFPAY | PROVIDERS: PCP Internal Medicine; Visit Provider Nurse Practitioner Psychiatric/Mental Health | DX: F33.9 Major depressive disorder, recurrent, unspecified (principal); F43.12 Post-traumatic stress disorder, chronic; F41.1 Generalized anxiety disorder; F44.81 Dissociative identity disorder; G47.33 Obstructive sleep apnea (adult) (pediatric) | CPT/HCPCS: 99214 ==

== ENCOUNTER → 2020-10-21 15:48 | Outpatient (BNVA) | payer MEDICARE, MEDICAID, SELFPAY | PROVIDERS: PCP Internal Medicine; Visit Provider Nurse Practitioner Psychiatric/Mental Health | DX: F33.9 Major depressive disorder, recurrent, unspecified (principal); F43.12 Post-traumatic stress disorder, chronic; F41.1 Generalized anxiety disorder; F44.81 Dissociative identity disorder; G47.33 Obstructive sleep apnea (adult) (pediatric) | CPT/HCPCS: 99214 ==

== ENCOUNTER → 2020-10-23 13:56 | Outpatient (BNVA) | payer MEDICARE, MEDICAID, SELFPAY | PROVIDERS: PCP Internal Medicine; Visit Provider Internal Medicine Rheumatology | DX: M02.30 Reiter's disease, unspecified site (principal); M19.90 Unspecified osteoarthritis, unspecified site; Z71.89 Other specified counseling; Z79.899 Other long term (current) drug therapy | CPT/HCPCS: 36415; 80076; 82565; 85025; 86140 ==

== ENCOUNTER → 2020-10-29 13:16 | Outpatient (BNVA) | payer MEDICARE, MEDICAID, SELFPAY | PROVIDERS: PCP Internal Medicine; Visit Provider Internal Medicine Rheumatology | DX: M02.30 Reiter's disease, unspecified site (principal); Z79.899 Other long term (current) drug therapy; K75.81 Nonalcoholic steatohepatitis (NASH); Z71.89 Other specified counseling | CPT/HCPCS: 99214 ==

== ENCOUNTER → 2020-11-25 14:59 | Outpatient (BNVA) | payer MEDICARE, MEDICAID, SELFPAY | PROVIDERS: PCP Internal Medicine; Visit Provider Nurse Practitioner Psychiatric/Mental Health | DX: F33.9 Major depressive disorder, recurrent, unspecified (principal); F43.12 Post-traumatic stress disorder, chronic; F41.1 Generalized anxiety disorder; F44.81 Dissociative identity disorder; G47.33 Obstructive sleep apnea (adult) (pediatric) | CPT/HCPCS: 99214 ==

== ENCOUNTER 2020-12-15 08:47 | Emergency (ER) | payer MEDICARE, MEDICAID, SELFPAY ==
[2020-12-15 08:56] VITALS: BP 128/84; PULSE 82; RESP 17; TEMP 36.8; O2SAT 94; BMI 34.8
--- NOTE | 2020-12-15 08:57 | W.ED.EXTPRO ---
HPI - Extremity Problem General: Chief complaint: Extremity Injury, Upper Stated complaint: Pain in R shoulder Time Seen by Provider: 12/15/20 08:49 Source: patient Mode of arrival: ambulatory Limitations: no limitations History of Present Illness: HPI Narrative: Patient is a 50-year-old transgender male who presents to the ED today for evaluation of right shoulder pain. Patient states he has had shoulder pain over the past several days without any known injury or trauma. He states he has a history of arthritis and initially thought it could be secondary to that. He also states he has had some form of rotator cuff pathology previously. He states at one point he underwent physical therapy for this that was beneficial. Patient complains of pain to the posterior aspect of his shoulder. He is not having any numbness or tingling to his upper extremity. He has not noticed any color or temperature changes. MD Complaint: joint pain Onset (ago): day(s) Pain Consistency: constant Location: right and upper extremity Radiation: none Relieving factors: immobilization Exacerbating factors: range of motion and palpation Associated symptoms: Reports no associated symptoms; Deny chest pain, fever(s) or rash Review of Systems Const: Denies: fever(s), chills, body aches, fatigue or malaise Card: Denies: chest pain Resp: Denies: dyspnea GI: Denies: abdominal pain Musc: Reports: joint pain (R shoulder); Denies: neck pain, back pain, extremity pain, extremity swelling or joint swelling Skin/Breast: Denies: rash Neuro: Denies: numbness in extremities, weakness in extremities or sensory changes PFS ED PFSH: Medical History Acute gastritis without bleeding Chronic joint pain Chronic post-traumatic stress disorder Dissociative identity disorder Elevated hemoglobin Elevated testosterone level Enrolled in chronic care management Generalized anxiety disorder High risk medication use Hypothyroidism Immunization counseling Inflammatory arthritis Major depressive disorder, recurrent episode with anxious distress MÉNDEZ (nonalcoholic steatohepatitis) Obstructive sleep apnea DAVONTE on CPAP Reactive arthritis Teresa's syndrome Urinary tract infection Vitamin D deficiency Surgical History H/O bilateral breast reduction surgery H/O rhinoplasty H/O thyroidectomy H/O: hysterectomy Family History Other Cancer Diabetes Denies family history of Anesthesia complication Bleeding disorder Social History Smoking and tobacco status: never smoked Alcohol intake: never Lives independently: Yes Marital status: Single Current occupational status: student Pets and animals: Yes (service dog and cat) Pets & animals: cat(s) and dog(s) History of recent travel: No Current gender identity: Trans [id number] Physical Exam Const: COMMON NORMALS: no acute distress, patient oriented x3, no limitations and alert NUTRITIONAL APPEARANCE: overweight ORIENTATION/CONSCIOUSNESS: Yes awake, Yes oriented to person, Yes oriented to place and Yes oriented to time Back/Pelvis: COMMON NORMALS: thoracic and lumbar spine normal to inspection, no thoracic nor lumbar tenderness and thoraco-lumbar ROM normal THORACIC SPINE/UPPER BACK: Yes normal to inspection, Yes thoracic ROM normal, No thoracic spinal tenderness and No paraspinal muscle spasm Extremity: COMMON NORMALS: capillary refill normal and no joint enlargement GENERAL: Yes normal exam except as noted RIGHT UPPER EXTREMITY: Yes shoulder joint (TTP mid to inferior scapula) Right shoulder: Yes Right shoulder joint ROM exam (full ROM but pain with empty can test and abduction past 90 deg) and Yes Right shoulder joint neurovascular exam (normal) Neuro: COMMON NORMALS: patient oriented x3, moves all extremities, no focal motor deficits and no sensory deficits noted SENSORIUM/ORIENTATION: Yes alert, Yes oriented to person, Yes oriented to place and Yes oriented to time Skin: COMMON NORMALS: no rashes or lesions noted GENERAL SKIN EXAM: no rashes or lesions noted TRAUMA: no lacerations or abrasions Course Vital Signs: Vital signs: Vital Signs Temperature 98.2 F 12/15/20 08:56 Pulse Rate 82 12/15/20 08:56 Respiratory Rate 17 12/15/20 08:56 Blood Pressure 128/84 12/15/20 08:56 Pulse Oximetry 94 12/15/20 08:56 MDM - Extremity (Nontraumatic) Imaging Data^: XR R shoulder: My impression: NAD Discharge Plan Discharge Patient Disposition: Home Clinical Impression: Pain in right shoulder Qualifiers: Chronicity: acute Qualified Code(s): M25.511 - Pain in right shoulder Condition: Stable Prescriptions: New ibuprofen 800 mg tablet 800 mg PO Q8H PRN (Reason: pain) Qty: 20 RF: 0 Medrol (Evaristo) 4 mg tablets,dose pack See Rx Instructions .ROUTE .COMPLEX Qty: 21 RF: 0 No Action aspirin 81 mg tablet,delayed release (DR/EC) 81 mg PO ONCE RF: 0 testosterone cypionate 200 mg/mL oil 100 mg SUBCUT .Every 2 weeks RF: 0 chlorpheniramine maleate [ChlorTabs] 4 mg tablet 4 mg PO Q6H PRN (Reason: Allergy Symptoms) RF: 0 metformin [Glucophage] 500 mg tablet 250 mg PO DAILY RF: 0 omega-3 fatty acids [Fish Oil Concentrate] 1,000 mg capsule 1,000 mg PO DAILY RF: 0 multivitamin [Daily Multi-Vitamin] Tablet 1 tab PO DAILY RF: 0 bupropion HCl [Wellbutrin XL] 150 mg tablet extended release 24 hr 150 mg PO DAILY Qty: 30 RF: 3 levothyroxine 100 mcg capsule 100 mcg PO DAILY RF: 0 hydroxyzine pamoate [Vistaril] 50 mg capsule 50 mg PO BID PRN (Reason: anxiety) Qty: 60 RF: 4 cholecalciferol (vitamin D3) 50 mcg (2,000 unit) tablet 2,000 unit PO DAILY Qty: 30 RF: 3 Humira Pen 40 mg/0.8 mL pen injector kit 40 mg SUBCUT Q14D Qty: 2 RF: 3 (DME) blood-glucose meter [Accu-Chek Cherri Plus Meter] Misc See Rx Instructions .ROUTE .MEDSUPPLY Qty: 1 RF: 0 (DME) Accu-Chek Cherri Plus test strp Strip See Rx Instructions .ROUTE .MEDSUPPLY Qty: 100 RF: 0 gemfibrozil 600 mg tablet 600 mg PO BID Qty: 60 RF: 0 Discharge Orders: Discharge ED (Routine); Ordered 12/15/20 Ordered By: Roberta Delgado Referrals: Vaishali Ramirez DO [Primary Care Provider] - Activity Restrictions/Additional Instructions: As we discussed please follow-up with your primary care provider to discuss further options regarding treatment and evaluation of your right shoulder pain. Coding Level of Care Code ED Director Pharmacovigilance for Lisseth Fwd Exam Detailed
--- NOTE | 2020-12-15 09:09 | XRR_ITS ---
PROCEDURE INFORMATION: Exam: XR Right Shoulder Exam date and time: 12/15/2020 9:09 AM Age: 50 years old Clinical indication: Pain; Shoulder; Right TECHNIQUE: Imaging protocol: XR Right shoulder. Views: 2 or more views. COMPARISON: CR XR chest 1V portable [id number] 01/19/2020 7:52 PM FINDINGS: Bones/joints: There is no evidence of acute fracture. No dislocation. There are mild degenerative and chronic changes. There is mild narrowing of subacromial space. Findings appear unchanged from chest x-ray. Soft tissues: Normal. XR/XR shoulder RT min 2V* [id number] IMPRESSION: No evidence of fracture or dislocation.
[2020-12-15] MEDS: ketorolac 60 mg/2 mL INJ IM (10:09)
== END 2020-12-15 10:11 | disposition home or self-care (01) ==
PROVIDERS: Emergency Provider Physician Assistant; PCP Internal Medicine
DX: M25.511 Pain in right shoulder (principal); E03.9 Hypothyroidism, unspecified
CPT/HCPCS: 73030; 96372; 99283; J1885

== ENCOUNTER 2020-12-18 18:08 | Emergency (ER) | payer MEDICARE, MEDICAID, SELFPAY ==
[2020-12-18 18:16] VITALS: BP 130/77; PULSE 94; RESP 17; TEMP 39.6; O2SAT 93; BMI 35.7
--- NOTE | 2020-12-18 18:30 | XRR_ITS ---
PROCEDURE INFORMATION: Exam: XR Chest Exam date and time: 12/18/2020 6:30 PM Age: 50 years old Clinical indication: Fever; Additional info: Fever, left shoulder pain TECHNIQUE: Imaging protocol: XR of the chest. Views: 2 views. COMPARISON: CR XR chest 1V portable [id number] 01/19/2020 7:52 PM FINDINGS: Lungs: Mild atelectasis in the left base. The right lung is clear. Pleural spaces: Unremarkable. No pleural effusion. No pneumothorax. Heart/Mediastinum: Unremarkable. No cardiomegaly. Bones/joints: Screws and hardware in the mandible. XR/XR chest 2V* [id number] IMPRESSION: No acute findings
[2020-12-18 21:13] LABS: Hematocrit 42.4 % (42.0-52.0); Hemoglobin 14.8 g/dL (11.7-16.6); Mean Corpuscular HGB Conc 34.9 g/dL (30.0-36.0); Mean Corpuscular Hemoglobin 32.2 pg (28.0-34.0); Mean Corpuscular Volume 92.4 fl (80-94); Mean Platelet Volume 10.2 fL (7.4-10.4); Platelet Count 129 10^3/cmm (130-400); Red Blood Count 4.59 10^6/uL (4.1-5.3); Red Cell Distribution Width 11.9 % (12.1-15.1); White Blood Count 7.8 10^3/uL (4.0-10.0)
[2020-12-18 21:36] LABS: Slide Review Slide Review Perform
[2020-12-18 21:37] LABS: Absolute Neutrophil 4.8 10^3/cmm (1.4-6.5); Band Neutrophils Absolute 1.8 10^3/cmm (0.0-1.2); Eosinophils 0 %; Lymphocytes 18 %; Lymphocytes Absolute 2.6 10^3/cmm (1.2-3.4); Monocytes Absolute 0.5 10^3/cmm (0.1-0.6); Platelet Estimate Normal (Normal); Segmented Neutrophils 38 %; Total Cells Counted 100 (0-100)
[2020-12-18 21:38] LABS: Alanine Aminotransferase 139 U/L (0-41); Albumin Level 3.6 g/dL (3.5-5.2); Alkaline Phosphatase 115 IU/L (40-130); Anion Gap 13.7 (5-19); Aspartate Amino Transferase 118 U/L (0-40); Blood Urea Nitrogen 12 mg/dL (6-20); Calcium 8.4 mg/dL (8.5-10.5); Carbon Dioxide 23 mmol/L (22-29); Chloride 96 mmol/L (98-107); Globulin 3.4 g/dL (1.3-4.6); Glomerular Filtration Rate 79.8 mL/min (90-130); Glucose 91 mg/dL (65-115); Osmolality Calculated 267 mOsm/kg (285-295); Potassium 3.7 mmol/L (3.5-5.1); Sodium 129 mmol/L (136-145); Total Bilirubin 1.3 mg/dL (0.15-1.2)
[2020-12-18 21:39] LABS: Lactic Sepsis W/Reflex 0.9 mmol/L (0.5-2.2)
[2020-12-19 00:10] VITALS: BP 132/81; PULSE 74; RESP 22; TEMP 38.7; O2SAT 89
--- NOTE | 2020-12-19 01:01 | ED_ITS ---
HPI - General Adult General: Chief complaint: General Medical Stated complaint: running fever, unable to pee Time Seen by Provider: 12/19/20 00:26 Source: patient Mode of arrival: ambulatory Limitations: no limitations History of Present Illness: HPI narrative: 50-year-old male states over the last 3 to 4 days has been having fevers along with difficulty urinating and body aches. He states he had a Covid test today it was negative still concerned he may have Covid as it was a rapid and urgent care. He denies any cough. Denies any vomiting or diarrhea. Denies any abdominal pain. Denies any worsening improving factors at this time Associated symptoms: Deny chest pain, dyspnea, headache(s), nausea, rash or v omiting Review of Systems Const: Reports: fever(s), chills and body aches Eyes: Denies: blurry vision or eye discomfort ENMT: Denies: throat pain or dental pain Card: Denies: chest pain Resp: Denies: dyspnea GI: Denies: abdominal pain, nausea, vomiting or diarrhea : Reports: difficulty urinating Musc: Denies: neck pain or back pain Skin/Breast: Denies: rash Neuro: Denies: headache(s) Psych: Denies: depression Riky/Lymph: Denies: easy bruising All/Imm: Denies: urticaria PFSH ED PFSH: Medical History Acute gastritis without bleeding Chronic joint pain Chronic post-traumatic stress disorder Dissociative identity disorder Elevated hemoglobin Elevated testosterone level Enrolled in chronic care management Generalized anxiety disorder High risk medication use Hypothyroidism Immunization counseling Inflammatory arthritis Major depressive disorder, recurrent episode with anxious distress MÉNDEZ (nonalcoholic steatohepatitis) Obstructive sleep apnea DAVONTE on CPAP Reactive arthritis Teresa's syndrome Urinary tract infection Vitamin D deficiency Surgical History H/O bilateral breast reduction surgery H/O rhinoplasty H/O thyroidectomy H/O: hysterectomy Family History Other Cancer Diabetes Denies family history of Anesthesia complication Bleeding disorder Social History Smoking and tobacco status: never smoked Alcohol intake: never Lives independently: Yes Marital status: Single Current occupational status: student Pets and animals: Yes (service dog and cat) Pets & animals: cat(s) and dog(s) History of recent travel: No Current gender identity: Trans [id number] Physical Exam Const: COMMON NORMALS: no acute distress, patient oriented x3 and healthy appearing HENMT: COMMON NORMALS: normocephalic and atraumatic HEAD & SCALP: normocephalic and atraumatic Eye: COMMON NORMALS: Equal, round and reactive pupils present and EOMs intact bilaterally PUPIL: Yes Equal, round and reactive pupils present Neck/C-Spine: COMMON NORMALS: full ROM and supple Chest: COMMONS NORMALS: normal inspection of the chest and normal palpation of entire chest wall Resp: COMMON NORMALS: normal respiratory effort, No retractions, No use of accessory muscles and clear to auscultation bilaterally AUSCULTATION: clear to auscultation bilaterally Cardio: COMMON NORMALS: regular rate, regular rhythm and No murmurs present (Cardio) RATE: regular rate RHYTHM: regular rhythm GI: COMMON NORMALS: Normal to inspection, nondistended, normoactive bowel sounds present, Soft to palpation, non-tender and no masses PALPATION: Yes Soft to palpation Extremity: COMMON NORMALS: normal to inspection and full ROM Neuro: COMMON NORMALS: patient oriented x3, moves all extremities and no focal motor deficits Psych: COMMON NORMALS: mental status grossly normal, Normal thought process present and cooperative THOUGHT PROCESS: Normal thought process present Skin: COMMON NORMALS: no rashes or lesions noted and no wounds GENERAL SKIN EXAM: no rashes or lesions noted Course Vital Signs: Vital signs: Vital Signs Temperature 101.6 F H 12/19/20 00:10 Pulse Rate 74 12/19/20 03:23 Respiratory Rate 18 12/19/20 03:23 Blood Pressure 139/67 12/19/20 03:23 Pulse Oximetry 96 12/19/20 03:23 MDM - General Adult MDM Narrative: Medical decision making narrative: Patient presents here with a fever along with difficulty urinating. CT scan shows bilateral pyelonephritis. I went and spoke to patient and offered patient admission but he states he like to trial p.o. antibiotics at first. He has no signs of sepsis and pain is improved. Will place patient on Cipro and pain meds and is to follow-up with PCP and return if worsening. He understands and agrees to plan. Lab Data: Labs: Lab Results 12/18/20 12/18/20 12/18/20 Range/Units 20:47 20:47 20:47 WBC 7.8 (4.0-10.0) 10^3/ uL RBC 4.59 (4.1-5.3) 10^6/u L Hgb 14.8 (11.7-16.6) g/dL Hct 42.4 (42.0-52.0) % MCV 92.4 (80-94) fl MCH 32.2 (28.0-34.0) pg MCHC 34.9 (30.0-36.0) g/dL RDW 11.9 L (12.1-15.1) % Plt Count 129 L (130-400) 10^3/c mm MPV 10.2 (7.4-10.4) fL Lymph % (Auto) Not Reportable [place] % (Auto) Not Reportable Lymph # (Auto) Not Reportable [place] # (Auto) Not Reportable Total Counted 100 (0-100) Atypical Lymphs % 15.0 H (0-5) % Absolute Neutrophi ls 4.8 (1.4-6.5) 10^3/c mm Segmented Neutroph ils 38 % Abs Segm Neuts (Ma n) 3.0 (1.6-7.1) 10/cmm Band Neutrophils 23.0 % Abs Band Neuts (Ma n) 1.8 H (0.0-1.2) 10^3/c mm Absolute Lymphocyt es 2.6 (1.2-3.4) 10^3/c mm Lymphocytes (Manua l) 18 % Monocytes (Manual) 6.0 % Absolute Monocytes 0.5 (0.1-0.6) 10^3/c mm Eosinophils (Manua l) 0 % Absolute Eosinophi ls 0.0 (0.0-0.7) 10^3/c mm Basophils (Manual) 0.0 % Absolute Basophils 0.0 (0.0-0.2) 10^3/c mm Platelet Estimate Normal (Normal) Sodium 129 L (136-145) mmol/L Potassium 3.7 (3.5-5.1) mmol/L Chloride 96 L (98-107) mmol/L Carbon Dioxide 23 (22-29) mmol/L Anion Gap 13.7 (5-19) BUN 12 (6-20) mg/dL Creatinine 1.0 (0.7-1.2) mg/dL GFR Calculation 79.8 L (90-130) mL/min Glucose 91 (65-115) mg/dL Calculated Osmolal ity 267 L (285-295) mOsm/k g Lactic Acid 0.9 (0.5-2.2) mmol/L Lactate (0.5-2.2) mmol/L Calcium 8.4 L (8.5-10.5) mg/dL Total Bilirubin 1.3 H (0.15-1.2) mg/dL AST 118 H (0-40) U/L ALT 139 H (0-41) U/L Alkaline Phosphata se 115 (40-130) IU/L C-Reactive Protein 16.0 H (0.0-4.9) mg/L Total Protein 7.0 (6.6-8.7) g/dL Albumin 3.6 (3.5-5.2) g/dL Globulin 3.4 (1.3-4.6) g/dL Urine Color (Yellow) Urine Appearance (CLEAR) Urine pH (5-7) Ur Specific Gravit y (1.005-1.030) Urine Protein (Negative) Urine Glucose (UA) (Normal) Urine Ketones (Negative) Urine Blood (Negative) Urine Nitrate (Negative) Urine Bilirubin (Negative) Urine Urobilinogen (Negative) mg/dL Ur Leukocyte Rosanne ase (Negative) Urine RBC (0-2) /hpf Urine WBC (0-5) /hpf Ur Squamous Epith Cells (0-5) /hpf Amorphous Sediment Urine Bacteria (NONE) /hpf Urine Mucus /hpf SARS-CoV-2 Ag (Rap id) (Negative) 12/19/20 12/19/20 12/19/20 Range/Units 01:20 01:40 02:00 WBC (4.0-10.0) 10^3/ uL RBC (4.1-5.3) 10^6/u L Hgb (11.7-16.6) g/dL Hct (42.0-52.0) % MCV (80-94) fl MCH (28.0-34.0) pg MCHC (30.0-36.0) g/dL RDW (12.1-15.1) % Plt Count (130-400) 10^3/c mm MPV (7.4-10.4) fL Lymph % (Auto) [place] % (Auto) Lymph # (Auto) [place] # (Auto) Total Counted (0-100) Atypical Lymphs % (0-5) % Absolute Neutrophi ls (1.4-6.5) 10^3/c mm Segmented Neutroph ils % Abs Segm Neuts (Ma n) (1.6-7.1) 10/cmm Band Neutrophils % Abs Band Neuts (Ma n) (0.0-1.2) 10^3/c mm Absolute Lymphocyt es (1.2-3.4) 10^3/c mm Lymphocytes (Manua l) % Monocytes (Manual) % Absolute Monocytes (0.1-0.6) 10^3/c mm Eosinophils (Manua l) % Absolute Eosinophi ls (0.0-0.7) 10^3/c mm Basophils (Manual) % Absolute Basophils (0.0-0.2) 10^3/c mm Platelet Estimate (Normal) Sodium (136-145) mmol/L Potassium (3.5-5.1) mmol/L Chloride (98-107) mmol/L Carbon Dioxide (22-29) mmol/L Anion Gap (5-19) BUN (6-20) mg/dL Creatinine (0.7-1.2) mg/dL GFR Calculation (90-130) mL/min Glucose (65-115) mg/dL Calculated Osmolal ity (285-295) mOsm/k g Lactic Acid (0.5-2.2) mmol/L Lactate 0.9 (0.5-2.2) mmol/L Calcium (8.5-10.5) mg/dL Total Bilirubin (0.15-1.2) mg/dL AST (0-40) U/L ALT (0-41) U/L Alkaline Phosphata se (40-130) IU/L C-Reactive Protein (0.0-4.9) mg/L Total Protein (6.6-8.7) g/dL Albumin (3.5-5.2) g/dL Globulin (1.3-4.6) g/dL Urine Color Yellow (Yellow) Urine Appearance Clear (CLEAR) Urine pH 5 (5-7) Ur Specific Gravit y 1.010 (1.005-1.030) Urine Protein Neg (Negative) Urine Glucose (UA) Norm (Normal) Urine Ketones Negative (Negative) Urine Blood Neg (Negative) Urine Nitrate Negative (Negative) Urine Bilirubin 1+ H (Negative) Urine Urobilinogen Norm (Negative) mg/dL Ur Leukocyte Rosanne ase 1+ H (Negative) Urine RBC 0-4 H (0-2) /hpf Urine WBC 10-15 H (0-5) /hpf Ur Squamous Epith Cells 0-4 H (0-5) /hpf Amorphous Sediment Not Reportable Urine Bacteria Trace (NONE) /hpf Urine Mucus 1+ /hpf SARS-CoV-2 Ag (Rap id) Negative (Negative) Imaging Data^: CT Chest: Attestation: I personally reviewed and interpreted this imaging study as follows: Radiologist's impression: [address] [address] [address] Scan Report Signed Patient: Nasim Samano Unit #: [id number] : 1970 Age/Sex: 50 / M ADM Date: 12/18/20 Loc: ER Room/Bed: Attending Dr: Ordering Provider/Ordering MD: April Mancini MD Date of Service: 12/19/20 Procedure(s): CT chest abd pel w con* Accession Number(s): [id number] Report Number: [id number] PROCEDURE INFORMATION: Exam: CT Chest With Contrast; Diagnostic Exam date and time: 12/19/2020 1:26 AM Age: 50 years old Clinical indication: Nausea; Prior surgery; Surgery type: Thyroidectomy. Bilateral mastectomy. Hysterectomy. ; Patient HX: Fever with nusea and dysuria. TECHNIQUE: Imaging protocol: Diagnostic computed tomography of the chest with contrast. Radiation optimization: All CT scans at this facility use at least one of these dose optimization techniques: automated exposure control; mA and/or kV adjustment per patient size (includes targeted exams where dose is matched to clinical indication); or iterative reconstruction. Contrast material: OMNI 300; Contrast volume: 95 ml; Contrast route: INTRAVENOUS (IV); COMPARISON: CR (CHEST, ) 12/18/2020 7:15 PM RADIATION DOSE METRICS: Total DLP (mGy-cm): 2548.3 FINDINGS: Thyroid: Possible partial right thyroidectomy with small residual 2.4 cm right thyroid nodule. Incompletely visualized 7.0 x 5.5 x 4.7 cm partially calcified left thyroid goiter which extends into the thoracic inlet with deviation of the trachea to the right of midline. Lungs: Unremarkable. No consolidation. No masses. Pleural spaces: Unremarkable. No pneumothorax. No pleural effusion. Heart: Unremarkable. No cardiomegaly. No pericardial effusion. Aorta: Unremarkable. No aortic aneurysm. Lymph nodes: Unremarkable. No enlarged lymph nodes. Bones/joints: Moderate thoracic spondylosis. Soft tissues: Both breasts are absent consistent with bilateral mastectomy. IMPRESSION: 1. Possible partial right thyroidectomy with small residual 2.4 cm right thyroid nodule. 2. Incompletely visualized 7.0 x 5.5 x 4.7 cm partially calcified left thyroid goiter which extends into the thoracic inlet with deviation of the trachea to the right of midline. 3. Both breasts are absent consistent with bilateral mastectomy. COMMENTS: Consistent with the [employer]'s Incidental Findings Committee white paper (J Am Sri [employer]iol 2015): In patients aged 35 years and older with an incidental thyroid nodule equal to or greater than 1.[address], MRI or extrathyroidal US, further evaluation with dedicated thyroid US is recommended for patients with normal life expectancy and without comorbidities. For smaller nodules without suspicious features, no further evaluation or follow up is recommended. PROCEDURE INFORMATION: Exam: CT Abdomen And Pelvis With Contrast Exam date and time: 12/19/2020 1:26 AM Age: 50 years old Clinical indication: Nausea; Prior surgery; Surgery type: Thyroidectomy. Bilateral mastectomy. Hysterectomy. ; Patient HX: Fever with nusea and dysuria. TECHNIQUE: Imaging protocol: Computed tomography of the abdomen and pelvis with contrast. Radiation optimization: All CT scans at this facility use at least one of these dose optimization techniques: automated exposure control; mA and/or kV adjustment per patient size (includes targeted exams where dose is matched to clinical indication); or iterative reconstruction. Contrast material: OMNI 300; Contrast volume: 95 ml; Contrast route: INTRAVENOUS (IV); COMPARISON: CR (CHEST, ) 12/18/2020 7:15 PM RADIATION DOSE METRICS: Total DLP (mGy-cm): 2548.3 FINDINGS: Liver: Normal. No mass. Gallbladder and bile ducts: Normal. No calcified stones. No ductal dilation. Pancreas: Mild inflammation in the region of the pancreas and C-loop duodenum most consistent with mild pancreatitis. Spleen: Normal. No splenomegaly. Adrenal glands: Normal. No mass. Kidneys and ureters: One or more peripheral wedge-shaped hypodense bilateral renal perfusion defects consistent with bilateral pyelonephritis. Stomach and bowel: Unremarkable. No obstruction. No mucosal thickening. Appendix: No evidence of appendicitis. Intraperitoneal space: Unremarkable. No free air. No significant fluid collection. Vasculature: One or more calcified pelvic phleboliths. Lymph nodes: Unremarkable. No enlarged lymph nodes. Urinary bladder: Unremarkable as visualized. Reproductive: Status post hysterectomy. Bones/joints: Unremarkable. No acute fracture. Soft tissues: Unremarkable. CT/CT chest abd pel w con* IMPRESSION: 1. One or more peripheral wedge-shaped hypodense bilateral renal perfusion defects consistent with bilateral pyelonephritis. 2. Mild inflammation in the region of the pancreas and C-loop duodenum most consistent with mild pancreatitis. 3. Gender discrepancy with history of bilateral mastectomy, however the patient is labeled a male on the PACS machine images. In addition the pelvis appears to be female pelvis with absent uterus and ovaries, however there is also absent vas deferens, and absent base of the penis and absent inguinal canals/spermatic cords. The images appear to be of a female with bilateral mastectomy, hysterectomy and bilateral oophorectomy. Radiation Dose CTDIVOL = (mGy): DLP = 2548.3 2548.3 (mGy-cm) Dictated By: Adelso German MD Signed By: Adelso German MD Signed Date/Time: 12/19/20236 DD/ 4 Discharge Plan Discharge Patient Disposition: Home Clinical Impression: Acute pyelonephritis Condition: Stable Prescriptions: New hydrocodone-acetaminophen 5-325 mg tablet 1 tab PO Q6H PRN (Reason: pain) Qty: 14 RF: 0 ondansetron 4 mg tablet,disintegrating 4 mg PO Q6H PRN (Reason: nausea and vomiting) Qty: 14 RF: 0 ciprofloxacin HCl 500 mg tablet 500 mg PO BID Qty: 14 RF: 0 No Action aspirin 81 mg tablet,delayed release (DR/EC) 81 mg PO ONCE RF: 0 testosterone cypionate 200 mg/mL oil 100 mg SUBCUT .Every 2 weeks RF: 0 chlorpheniramine maleate [ChlorTabs] 4 mg tablet 4 mg PO Q6H PRN (Reason: Allergy Symptoms) RF: 0 metformin [Glucophage] 500 mg tablet 250 mg PO DAILY RF: 0 omega-3 fatty acids [Fish Oil Concentrate] 1,000 mg capsule 1,000 mg PO DAILY RF: 0 multivitamin [Daily Multi-Vitamin] Tablet 1 tab PO DAILY RF: 0 bupropion HCl [Wellbutrin XL] 150 mg tablet extended release 24 hr 150 mg PO DAILY Qty: 30 RF: 3 levothyroxine 100 mcg capsule 100 mcg PO DAILY RF: 0 hydroxyzine pamoate [Vistaril] 50 mg capsule 50 mg PO BID PRN (Reason: anxiety) Qty: 60 RF: 4 cholecalciferol (vitamin D3) 50 mcg (2,000 unit) tablet 2,000 unit PO DAILY Qty: 30 RF: 3 Humira Pen 40 mg/0.8 mL pen injector kit 40 mg SUBCUT Q14D Qty: 2 RF: 3 (DME) blood-glucose meter [Accu-Chek Cherri Plus Meter] Misc See Rx Instructions .ROUTE .MEDSUPPLY Qty: 1 RF: 0 (DME) Accu-Chek Cherri Plus test strp Strip See Rx Instructions .ROUTE .MEDSUPPLY Qty: 100 RF: 0 gemfibrozil 600 mg tablet 600 mg PO BID Qty: 60 RF: 0 ibuprofen 800 mg tablet 800 mg PO Q8H PRN (Reason: pain) Qty: 20 RF: 0 Medrol (Evaristo) 4 mg tablets,dose pack See Rx Instructions .ROUTE .COMPLEX Qty: 21 RF: 0 Discharge Orders: Discharge ED (Routine); Ordered 12/19/20 Ordered By: April Mancini Referrals: Vaishali Ramirez DO [Primary Care Provider] - 1-3 days Discharge Diet: Advance as tolerated Discharge Activity: Resume usual activity Patient Instructions: Acute Pyelonephritis (ED), Opioid Safety Coding Level of Care Code ED Track Superintendent for Chg Fwd Exam Comprehensive
[2020-12-19] MEDS: acetaminophen 500 mg Tablet 1000 MG PO (01:15)
[2020-12-19] MEDS: sodium chloride 0.9% 1,000 ML 999 ML IV (01:15)
--- NOTE | 2020-12-19 01:26 | CTR_ITS ---
PROCEDURE INFORMATION: Exam: CT Chest With Contrast; Diagnostic Exam date and time: 12/19/2020 1:26 AM Age: 50 years old Clinical indication: Nausea; Prior surgery; Surgery type: Thyroidectomy. Bilateral mastectomy. Hysterectomy. ; Patient HX: Fever with nusea and dysuria. TECHNIQUE: Imaging protocol: Diagnostic computed tomography of the chest with contrast. Radiation optimization: All CT scans at this facility use at least one of these dose optimization techniques: automated exposure control; mA and/or kV adjustment per patient size (includes targeted exams where dose is matched to clinical indication); or iterative reconstruction. Contrast material: OMNI 300; Contrast volume: 95 ml; Contrast route: INTRAVENOUS (IV); COMPARISON: CR (CHEST, ) 12/18/2020 7:15 PM RADIATION DOSE METRICS: Total DLP (mGy-cm): 2548.3 FINDINGS: Thyroid: Possible partial right thyroidectomy with small residual 2.4 cm right thyroid nodule. Incompletely visualized 7.0 x 5.5 x 4.7 cm partially calcified left thyroid goiter which extends into the thoracic inlet with deviation of the trachea to the right of midline. Lungs: Unremarkable. No consolidation. No masses. Pleural spaces: Unremarkable. No pneumothorax. No pleural effusion. Heart: Unremarkable. No cardiomegaly. No pericardial effusion. Aorta: Unremarkable. No aortic aneurysm. Lymph nodes: Unremarkable. No enlarged lymph nodes. Bones/joints: Moderate thoracic spondylosis. Soft tissues: Both breasts are absent consistent with bilateral mastectomy. IMPRESSION: 1. Possible partial right thyroidectomy with small residual 2.4 cm right thyroid nodule. 2. Incompletely visualized 7.0 x 5.5 x 4.7 cm partially calcified left thyroid goiter which extends into the thoracic inlet with deviation of the trachea to the right of midline. 3. Both breasts are absent consistent with bilateral mastectomy. COMMENTS: Consistent with the [employer]'s Incidental Findings Committee white paper (J Am Sri Radiol 2015): In patients aged 35 years and older with an incidental thyroid nodule equal to or greater than 1.[address], MRI or extrathyroidal US, further evaluation with dedicated thyroid US is recommended for patients with normal life expectancy and without comorbidities. For smaller nodules without suspicious features, no further evaluation or follow up is recommended. PROCEDURE INFORMATION: Exam: CT Abdomen And Pelvis With Contrast Exam date and time: 12/19/2020 1:26 AM Age: 50 years old Clinical indication: Nausea; Prior surgery; Surgery type: Thyroidectomy. Bilateral mastectomy. Hysterectomy. ; Patient HX: Fever with nusea and dysuria. TECHNIQUE: Imaging protocol: Computed tomography of the abdomen and pelvis with contrast. Radiation optimization: All CT scans at this facility use at least one of these dose optimization techniques: automated exposure control; mA and/or kV adjustment per patient size (includes targeted exams where dose is matched to clinical indication); or iterative reconstruction. Contrast material: OMNI 300; Contrast volume: 95 ml; Contrast route: INTRAVENOUS (IV); COMPARISON: CR (CHEST, ) 12/18/2020 7:15 PM RADIATION DOSE METRICS: Total DLP (mGy-cm): 2548.3 FINDINGS: Liver: Normal. No mass. Gallbladder and bile ducts: Normal. No calcified stones. No ductal dilation. Pancreas: Mild inflammation in the region of the pancreas and C-loop duodenum most consistent with mild pancreatitis. Spleen: Normal. No splenomegaly. Adrenal glands: Normal. No mass. Kidneys and ureters: One or more peripheral wedge-shaped hypodense bilateral renal perfusion defects consistent with bilateral pyelonephritis. Stomach and bowel: Unremarkable. No obstruction. No mucosal thickening. Appendix: No evidence of appendicitis. Intraperitoneal space: Unremarkable. No free air. No significant fluid collection. Vasculature: One or more calcified pelvic phleboliths. Lymph nodes: Unremarkable. No enlarged lymph nodes. Urinary bladder: Unremarkable as visualized. Reproductive: Status post hysterectomy. Bones/joints: Unremarkable. No acute fracture. Soft tissues: Unremarkable. CT/CT chest abd pel w con* IMPRESSION: 1. One or more peripheral wedge-shaped hypodense bilateral renal perfusion defects consistent with bilateral pyelonephritis. 2. Mild inflammation in the region of the pancreas and C-loop duodenum most consistent with mild pancreatitis. 3. Gender discrepancy with history of bilateral mastectomy, however the patient is labeled a male on the PACS machine images. In addition the pelvis appears to be female pelvis with absent uterus and ovaries, however there is also absent vas deferens, and absent base of the penis and absent inguinal canals/spermatic cords. The images appear to be of a female with bilateral mastectomy, hysterectomy and bilateral oophorectomy. Radiation Dose CTDIVOL = (mGy): DLP = 2548.3~2548.3 (mGy-cm)
[2020-12-19] MEDS: iohexol 300 mg/mL 100 mL Btl IV (01:43)
[2020-12-19 02:05] LABS: Lactate (Lactic Acid level) 0.9 mmol/L (0.5-2.2)
[2020-12-19 02:33] LABS: Protein Urine Neg (Negative); Urine Appearance Clear (CLEAR); Urine Color Yellow (Yellow); pH Urine 5 (5-7)
[2020-12-19 02:34] LABS: Add Urine Culture? No; Add Urine Microscopic? YES; Bacteria Urine TRACE /hpf; Bilirubin Urine 1+ (Negative); Blood Urine Neg (Negative); Glucose Urine UA Norm (Normal); Ketones Urine Negative (Negative); Leukocyte Esterase Urine 1+ (Negative); Mucus Urine 1+ /hpf; Nitrate Urine Negative (Negative); RBC Urine 0-4 /hpf (0-2); Squamous Epithelial Cell Urine 0-4 /hpf (0-5); Urobilinogen Urine Norm (Negative)
[2020-12-19 02:43] LABS: SARS Covid-2 Antigen Negative (Negative)
[2020-12-19] MEDS: cefTRIAXone 1,000 MG in sodium chloride 0.9% (plus) 50 ML 100 MG IV (02:57)
[2020-12-19 03:23] VITALS: BP 139/67; PULSE 74; RESP 18; O2SAT 96
== END 2020-12-19 03:25 | disposition home or self-care (01) ==
PROVIDERS: Nurse Practitioner Family; Emergency Provider Emergency Medicine; PCP Internal Medicine
DX: N10 Acute pyelonephritis (principal); Z79.82 Long term (current) use of aspirin; Z79.84 Long term (current) use of oral hypoglycemic drugs; Z20.822 Contact with and (suspected) exposure to COVID-19
CPT/HCPCS: 36415; 71046; 71260; 74177; 80053; 81001; 83605; 85007; 85025; 86140; 87040; 87426; 96365; 99283; J0696; J7030; Q9967

== ENCOUNTER 2020-12-24 08:11 | Outpatient (RCR) | payer MEDICARE, MEDICAID, SELFPAY | END 2020-12-24 23:59 | disposition home or self-care (01) | LOC: SPT 08:11 | PROVIDERS: PCP Internal Medicine; Referring Provider Internal Medicine; Visit Provider Internal Medicine | DX: M25.511 Pain in right shoulder (principal) | CPT/HCPCS: 97110; 97161 ==

== ENCOUNTER 2020-12-25 06:00 | Outpatient (RCR) | payer MEDICARE, MEDICAID, SELFPAY | END 2021-01-23 23:59 | disposition home or self-care (01) | LOC: SPT 06:00 | PROVIDERS: PCP Internal Medicine; Referring Provider Internal Medicine; Visit Provider Internal Medicine | DX: M25.511 Pain in right shoulder (principal) | CPT/HCPCS: 97110 ==

== ENCOUNTER → 2021-01-06 15:15 | Outpatient (BNVA) | payer MEDICARE, MEDICAID, SELFPAY | PROVIDERS: PCP Internal Medicine; Visit Provider Nurse Practitioner Psychiatric/Mental Health | DX: F33.9 Major depressive disorder, recurrent, unspecified (principal); F43.12 Post-traumatic stress disorder, chronic; F41.1 Generalized anxiety disorder; F44.81 Dissociative identity disorder; Z78.9 Other specified health status | CPT/HCPCS: 99214 ==

== ENCOUNTER 2021-01-12 02:47 | Emergency (ER) | payer MEDICARE, MEDICAID, SELFPAY ==
[2021-01-12 02:57] VITALS: BP 154/89; PULSE 102; RESP 18; TEMP 36.2; O2SAT 97; BMI 37.2
--- NOTE | 2021-01-12 03:18 | ED_ITS ---
HPI - Back Pain/Injury General: Chief Complaint: Urogenital-Male Stated Complaint: Kidney Infection Time Seen by Provider: 01/12/21 02:50 Source: patient Mode of arrival: ambulatory Limitations: no limitations History of Present Illness: HPI Narrative: 50-year-old male who was seen here 2 weeks ago and diagnosed with bilateral pyelonephritis. Patient placed on Cipro states been feeling somewhat better he started having some lower back pain again and some weakness. Denies any fever denies any vomiting or diarrhea. Patient did complete the course of Cipro. Denies any dysuria Associated symptoms: Deny abdominal pain, chills, fever(s), nausea or vomiting Review of Systems Const: Denies: fever(s), chills, body aches or change in appetite Eyes: Denies: blurry vision or eye discomfort ENMT: Denies: throat pain or dental pain Card: Denies: chest pain Resp: Denies: dyspnea GI: Denies: abdominal pain, nausea, vomiting or diarrhea : Reports: flank pain Musc: Denies: neck pain or back pain Skin/Breast: Denies: rash Neuro: Denies: headache(s) Psych: Denies: depression Riky/Lymph: Denies: easy bruising All/Imm: Denies: urticaria PFSH ED PFSH: Medical History Acute gastritis without bleeding Chronic joint pain Chronic post-traumatic stress disorder Dissociative identity disorder Elevated hemoglobin Elevated testosterone level Enrolled in chronic care management Rqccpb-gu-omaj transgender person Generalized anxiety disorder High risk medication use Hypothyroidism Immunization counseling Inflammatory arthritis Major depressive disorder, recurrent episode with anxious distress MÉNDEZ (nonalcoholic steatohepatitis) Obstructive sleep apnea DAVONTE on CPAP Psychiatric care Reactive arthritis Teresa's syndrome Urinary tract infection Vitamin D deficiency Surgical History H/O bilateral breast reduction surgery H/O rhinoplasty H/O thyroidectomy H/O: hysterectomy Family History Other Cancer Diabetes Denies family history of Anesthesia complication Bleeding disorder Social History Smoking and tobacco status: never smoked Alcohol intake: never Lives independently: Yes Marital status: Single Current occupational status: student Pets and animals: Yes (service dog and cat) Pets & animals: cat(s) and dog(s) History of recent travel: No Current gender identity: Trans [id number]-Wojj Physical Exam Const: COMMON NORMALS: no acute distress, patient oriented x3 and healthy appearing HENMT: COMMON NORMALS: normocephalic and atraumatic HEAD & SCALP: normocephalic and atraumatic Eye: COMMON NORMALS: Equal, round and reactive pupils present and EOMs intact bilaterally PUPIL: Yes Equal, round and reactive pupils present Neck/C-Spine: COMMON NORMALS: full ROM and supple Chest: COMMONS NORMALS: normal inspection of the chest and normal palpation of entire chest wall Resp: COMMON NORMALS: normal respiratory effort, No retractions, No use of accessory muscles and clear to auscultation bilaterally AUSCULTATION: clear to auscultation bilaterally Cardio: COMMON NORMALS: regular rate, regular rhythm and No murmurs present (Cardio) RATE: regular rate RHYTHM: regular rhythm GI: COMMON NORMALS: Normal to inspection, nondistended, normoactive bowel sounds present, Soft to palpation, non-tender and no masses PALPATION: Yes Soft to palpation : COMMON NORMALS: Yes no CVA tenderness BLADDER/KIDNEY EXAM: Yes no CVA tenderness Back/Pelvis: COMMON NORMALS: no CVA tenderness Extremity: COMMON NORMALS: normal to inspection and full ROM Neuro: COMMON NORMALS: patient oriented x3, moves all extremities and no focal motor deficits Psych: COMMON NORMALS: mental status grossly normal, Normal thought process present and cooperative THOUGHT PROCESS: Normal thought process present Skin: COMMON NORMALS: no rashes or lesions noted and no wounds GENERAL SKIN EXAM: no rashes or lesions noted Course Vital Signs: Vital signs: Vital Signs Temperature 97.1 F L 01/12/21 02:57 Pulse Rate 102 H 01/12/21 02:57 Respiratory Rate 18 01/12/21 02:57 Blood Pressure 154/89 01/12/21 02:57 Pulse Oximetry 97 01/12/21 02:57 MDM - Back Pain/Injury MDM Narrative: Medical decision making narrative: Patient presents here with back pain along with fatigue. Patient's urine here is clear and blood work is normal no signs of pyelonephritis here. She has no signs of sepsis. Patient is stable for discharge is to follow-up with PCP and return if worsening. Patient understands agrees to plan. Lab Data: Labs: Lab Results 01/12/21 01/12/21 01/12/21 Range/Units 03:20 04:20 04:20 WBC 10.4 H (4.0-10.0) 10^3/ uL RBC 4.19 (4.1-5.3) 10^6/u L Hgb 13.3 (11.7-16.6) g/dL Hct 39.1 L (42.0-52.0) % MCV 93.3 (80-94) fl MCH 31.7 (28.0-34.0) pg MCHC 34.0 (30.0-36.0) g/dL RDW 12.0 L (12.1-15.1) % Plt Count 177 (130-400) 10^3/c mm MPV 9.6 (7.4-10.4) fL Neut % (Auto) 33.3 % Lymph % (Auto) 47.7 % [place] % (Auto) 10.2 % Eos % (Auto) 7.7 % Baso % (Auto) 0.8 % Neut # (Auto) 3.45 (1.8-7.7) 10^3/u L Lymph # (Auto) 5.0 H (0.8-4.8) 10^3/u L [place] # (Auto) 1.1 H (0.2-0.9) 10^3/u L Eos # (Auto) 0.8 (0.0-0.8) 10^3/u L Baso # (Auto) 0.1 (0.0-0.1) 10^3/u L Nucleated RBC % (a uto) 0 % Nucleated RBCs # 0.0 /100WBC Sodium 139 (136-145) mmol/L Potassium 3.6 (3.5-5.1) mmol/L Chloride 105 (98-107) mmol/L Carbon Dioxide 23 (22-29) mmol/L Anion Gap 14.6 (5-19) BUN 7 (6-20) mg/dL Creatinine 0.8 (0.7-1.2) mg/dL GFR Calculation 103.2 (90-130) mL/min Calculated Osmolal ity 288 (285-295) mOsm/k g Calcium 9.1 (8.5-10.5) mg/dL Total Bilirubin 0.5 (0.15-1.2) mg/dL Albumin 3.7 (3.5-5.2) g/dL Globulin 2.8 (1.3-4.6) g/dL Urine Color Yellow (Yellow) Urine Appearance Clear (CLEAR) Urine pH 7 (5-7) Ur Specific Gravit y 1.005 (1.005-1.030) Urine Protein Neg (Negative) Urine Glucose (UA) Norm (Normal) Urine Ketones Negative (Negative) Urine Blood Neg (Negative) Urine Nitrate Negative (Negative) Urine Bilirubin Neg (Negative) Urine Urobilinogen Norm (Negative) mg/dL Ur Leukocyte Rosanne ase 1+ H (Negative) Urine RBC 0-4 H (0-2) /hpf Urine WBC 5-10 H (0-5) /hpf Ur Squamous Epith Cells 0-4 H (0-5) /hpf Amorphous Sediment 2+ /hpf Urine Bacteria Trace (NONE) /hpf Discharge Plan Discharge Patient Disposition: Home Clinical Impression: Back pain Qualifiers: Back pain location: back pain in unspecified location Chronicity: acute Back pain laterality: bilateral Qualified Code(s): M54.9 - Dorsalgia, unspecified Fatigue Qualifiers: Fatigue type: unspecified Qualified Code(s): R53.83 - Other fatigue Condition: Stable Prescriptions: New Naprosyn 500 mg tablet 500 mg PO BID PRN (Reason: pain) Qty: 20 RF: 0 No Action testosterone cypionate 200 mg/mL oil 100 mg SUBCUT .Every 2 weeks RF: 0 aspirin 81 mg tablet,delayed release (DR/EC) 81 mg PO DAILY RF: 0 chlorpheniramine maleate [ChlorTabs] 4 mg tablet 4 mg PO Q6H PRN (Reason: Allergy Symptoms) RF: 0 metformin [Glucophage] 500 mg tablet 250 mg PO DAILY RF: 0 omega-3 fatty acids [Fish Oil Concentrate] 1,000 mg capsule 1,000 mg PO DAILY RF: 0 multivitamin [Daily Multi-Vitamin] Tablet 1 tab PO DAILY RF: 0 levothyroxine 100 mcg capsule 100 mcg PO DAILY RF: 0 hydroxyzine pamoate [Vistaril] 50 mg capsule 50 mg PO BID PRN (Reason: anxiety) Qty: 60 RF: 4 cholecalciferol (vitamin D3) 50 mcg (2,000 unit) tablet 2,000 unit PO DAILY Qty: 30 RF: 3 Humira Pen 40 mg/0.8 mL pen injector kit 40 mg SUBCUT Q14D Qty: 2 RF: 3 bupropion HCl [Wellbutrin XL] 150 mg tablet extended release 24 hr 150 mg PO DAILY Qty: 30 RF: 3 (DME) blood-glucose meter [Accu-Chek Cherri Plus Meter] Misc See Rx Instructions .ROUTE .MEDSUPPLY Qty: 1 RF: 0 (DME) Accu-Chek Cherri Plus test strp Strip See Rx Instructions .ROUTE .MEDSUPPLY Qty: 100 RF: 0 gemfibrozil 600 mg tablet 600 mg PO BID Qty: 60 RF: 0 ondansetron 4 mg tablet,disintegrating 4 mg PO Q6H PRN (Reason: nausea and vomiting) Qty: 14 RF: 0 ibuprofen 800 mg tablet 800 mg PO Q8H PRN (Reason: pain) Qty: 20 RF: 0 Discharge Orders: Discharge ED (Routine); Ordered 01/12/21 Ordered By: April Mancini Referrals: Vaishali Ramirez DO [Primary Care Provider] - 1-3 days Discharge Diet: Advance as tolerated Discharge Activity: Resume usual activity Patient Instructions: Fatigue (ED), Back Pain (ED) Coding Level of Care Code ED Professor Of Finance for Lisseth Fwagnes Exam Comprehensive
[2021-01-12 03:33] LABS: Add Urine Microscopic? YES; Bilirubin Urine Neg (Negative); Blood Urine Neg (Negative); Glucose Urine UA Norm (Normal); Ketones Urine Negative (Negative); Leukocyte Esterase Urine 1+ (Negative); Nitrate Urine Negative (Negative); Protein Urine Neg (Negative); Specific Gravity, Urine 1.005 (1.005-1.030); Urine Appearance Clear (CLEAR); Urine Color Yellow (Yellow); Urobilinogen Urine Norm (Negative); pH Urine 7 (5-7)
[2021-01-12 03:37] LABS: Add Urine Culture? No; Amorphous Sediment Urine 2+ /hpf; Bacteria Urine TRACE /hpf; RBC Urine 0-4 /hpf (0-2); Squamous Epithelial Cell Urine 0-4 /hpf (0-5)
[2021-01-12] MEDS: sodium chloride 0.9% 1,000 ML 999 ML IV (04:34)
[2021-01-12 04:38] LABS: Basophils # 0.1 10^3/uL (0.0-0.1); Basophils % 0.8 %; Eosinophils # 0.8 10^3/uL (0.0-0.8); Eosinophils % 7.7 %; Hematocrit 39.1 % (42.0-52.0); Hemoglobin 13.3 g/dL (11.7-16.6); Lymphocytes % 47.7 %; Mean Corpuscular Hemoglobin 31.7 pg (28.0-34.0); Mean Corpuscular Volume 93.3 fl (80-94); Mean Platelet Volume 9.6 fL (7.4-10.4); Monocytes # 1.1 10^3/uL (0.2-0.9); Monocytes % 10.2 %; Neutrophils # 3.45 10^3/uL (1.8-7.7); Neutrophils % 33.3 %; Nucleated Red Blood Cells % 0 %; Platelet Count 177 10^3/cmm (130-400); Red Blood Count 4.19 10^6/uL (4.1-5.3); White Blood Count 10.4 10^3/uL (4.0-10.0)
[2021-01-12 04:49] LABS: Alanine Aminotransferase 71 U/L (0-41); Albumin Level 3.7 g/dL (3.5-5.2); Alkaline Phosphatase 166 IU/L (40-130); Anion Gap 14.6 (5-19); Aspartate Amino Transferase 65 U/L (0-40); Blood Urea Nitrogen 7 mg/dL (6-20); Calcium 9.1 mg/dL (8.5-10.5); Carbon Dioxide 23 mmol/L (22-29); Chloride 105 mmol/L (98-107); Creatinine Clr Calc Pharmacy 136.5497; Globulin 2.8 g/dL (1.3-4.6); Glomerular Filtration Rate 103.2 mL/min (90-130); Glucose 129 mg/dL (65-115); Lipase 98 U/L (13-60); Osmolality Calculated 288 mOsm/kg (285-295); Potassium 3.6 mmol/L (3.5-5.1); Sodium 139 mmol/L (136-145); Total Bilirubin 0.5 mg/dL (0.15-1.2); Total Protein 6.5 g/dL (6.6-8.7)
[2021-01-12 05:13] VITALS: BP 130/81; PULSE 90; RESP 18; O2SAT 96
== END 2021-01-12 05:15 | disposition home or self-care (01) ==
PROVIDERS: Emergency Provider Emergency Medicine; PCP Internal Medicine
DX: M54.9 Dorsalgia, unspecified (principal); R53.83 Other fatigue; Z79.82 Long term (current) use of aspirin; Z79.84 Long term (current) use of oral hypoglycemic drugs
CPT/HCPCS: 80053; 81001; 83690; 85025; 96360; 99283; J7030

== ENCOUNTER 2021-01-24 06:00 | Outpatient (RCR) | payer MEDICARE, MEDICAID, SELFPAY | END 2021-02-23 23:59 | disposition home or self-care (01) | LOC: SPT 06:00 | PROVIDERS: PCP Internal Medicine; Referring Provider Internal Medicine; Visit Provider Internal Medicine | DX: M25.511 Pain in right shoulder (principal) | CPT/HCPCS: 97110 ==

== ENCOUNTER → 2021-01-27 11:24 | Outpatient (BNVA) | payer MEDICARE, MEDICAID, SELFPAY | PROVIDERS: PCP Internal Medicine; Visit Provider Internal Medicine | DX: Z01.812 Encounter for preprocedural laboratory examination (principal); R68.81 Early satiety; Z20.822 Contact with and (suspected) exposure to COVID-19 | CPT/HCPCS: 87635 ==

== ENCOUNTER 2021-02-03 06:59 | Day surgery (SDC) | payer MEDICARE, MEDICAID, SELFPAY ==
--- NOTE | 2021-02-03 07:31 | ANES.PREANE2 ---
Pre-Anesthetic Assessment Pre-Anesthetic Assessment: Height/Weight: Height 1.73 m Weight 99.337 kg Preop Diagnosis: early satiety Proposed Procedure: Operation Date: 02/03/21 08:15 Proposed Procedures p EGD 40928 68.81 [id number](Not Applicable) - Prasad Del Rosario MD s Colonoscopy(Not Applicable) - Prasad Del Rosario MD Familial anesthetic complications: none Was Beta Tee taken within 24 hours: N/A Was Clonidine taken within 24 hours: N/A Last intake: > 8 hrs Social: Social History: No alcohol and No tobacco Exam: Pre-Anes Outpt Exam: alert, oriented x 3, clear to auscultation bilaterally and regular rate & rhythm Airway: Cervical ROM: WNL MP: 3 Dentition: Loose (2 front teeth on the bottom) Pulmonary: Pulmonary: Cough (sinus infection (chronic)) and Sleep apnea Hepatic: Comments: fatty liver GI: GI: GERD Comments: early satiety Metabolic: Metabolic: DM (Pre-DM) and Thyroid Musc/skel: Comments: reactive arthritis - was on steroids a couple of weeks ago for 7 days for possible torn rotator cuff Neuropsych: Comments: PTSD Anesthetic Plan: ASA status: 3 Anesthesia: MAC Risk of > 500 ml blood loss (7ml/kg in children): No PFSH Anesthesia PFSH: Medical History (Updated 01/21/21 @ 10:36 by Prasad Del Rosario MD) Acute gastritis without bleeding Chronic joint pain Chronic post-traumatic stress disorder Dissociative identity disorder Elevated hemoglobin Elevated testosterone level Enrolled in chronic care management [id number] transgender person Generalized anxiety disorder High risk medication use Hypothyroidism Immunization counseling Inflammatory arthritis Major depressive disorder, recurrent episode with anxious distress MÉNDEZ (nonalcoholic steatohepatitis) Obstructive sleep apnea DAVONTE on CPAP Psychiatric care Psychiatric care Reactive arthritis Teresa's syndrome Urinary tract infection Vitamin D deficiency Surgical History H/O bilateral breast reduction surgery H/O rhinoplasty H/O thyroidectomy H/O: hysterectomy Family History Other Cancer Diabetes Denies family history of Anesthesia complication Bleeding disorder Social History Smoking and tobacco status: never smoked Alcohol intake: never Lives independently: Yes Marital status: Single Current occupational status: student Pets and animals: Yes (service dog and cat) Pets & animals: cat(s) and dog(s) History of recent travel: No Current gender identity: Trans [id number] Data Anesthesia Cardiac Studies: No Data to Display
--- NOTE | 2021-02-03 07:45 | W.PM.OPSFHP ---
Same Day Surgery H&P Indication for Procedure/HPI DATE OF PROCEDURE: February 03, 2021 CHIEF COMPLAINT/INDICATIONFOR SURGICAL PROCEDURE: Early satiety PREOP DIAGNOSIS: early satiety PLANNED PROCEDRUE: Operation Date: 02/03/21 08:15 Proposed Procedures p EGD 20181 68.81 00631(Not Applicable) - Prasad Del Rosario MD s Colonoscopy(Not Applicable) - Prasad Del Rosario MD Medications/Allergies* Home Medications Medication Instructions Recorded Confirmed Type levothyroxine 100 mcg capsule 100 mcg PO DAILY 07/19/19 01/30/21 History chlorpheniramine maleate 4 mg 4 mg PO Q6H PRN 11/15/19 01/30/21 History tablet testosterone cypionate 200 mg/mL 100 mg SUBCUT .Every 2 weeks ml 05/08/20 01/30/21 History intramuscular oil metformin 500 mg tablet 250 mg PO DAILY tab 07/04/20 01/30/21 History multivitamin 1 tab PO DAILY 10/21/20 01/30/21 History omega-3 fatty acids 1,000 mg 1,000 mg PO DAILY 10/21/20 01/30/21 History capsule aspirin 81 mg tablet,delayed 81 mg PO DAILY tab 01/06/21 01/30/21 History release Allergies/Adverse Reactions Allergy/AdvReac Type Severity Reaction Status Date / Time fenofibrate Allergy Intermediate blisters Verified 01/30/21 11:02 Penicillins Allergy Unknown swelling Verified 01/30/21 11:02 prazosin Allergy Unknown Unknown Verified 01/30/21 11:02 diazepam [From Valium] Allergy Unknown Verified 01/30/21 11:02 sulfasalazine AdvReac Mild nausea Verified 01/30/21 11:02 vomiting Pertinent History/Comorbid Conditions* Medical History (Updated 01/21/21 @ 10:36 by Prasad Del Rosario MD) Acute gastritis without bleeding Chronic joint pain Chronic post-traumatic stress disorder Dissociative identity disorder Elevated hemoglobin Elevated testosterone level Enrolled in chronic care management Qbncht-[id number] transgender person Generalized anxiety disorder High risk medication use Hypothyroidism Immunization counseling Inflammatory arthritis Major depressive disorder, recurrent episode with anxious distress MÉNDEZ (nonalcoholic steatohepatitis) Obstructive sleep apnea DAVONTE on CPAP Psychiatric care Psychiatric care Reactive arthritis Teresa's syndrome Urinary tract infection Vitamin D deficiency Surgical History (Updated 05/09/19 @ 09:17 by Miriam Carvajal DO) H/O bilateral breast reduction surgery H/O rhinoplasty H/O thyroidectomy H/O: hysterectomy Family History (Updated 01/04/20 @ 10:18 by Vaishali Knight LPN) Diabetes Cancer Denies family history of Anesthesia complication Bleeding disorder Social History Smoking and tobacco status: never smoked Alcohol intake: never Lives independently: Yes Marital status: Single Current occupational status: student Pets and animals: Yes (service dog and cat) Pets & animals: cat(s) and dog(s) History of recent travel: No Current gender identity: Trans [id number]-Gmln Pertinent Exam Findings alert, oriented x 3, clear to auscultation bilaterally, regular rate & rhythm, operative site marked and procedure specific exam findings Recommendations Surgery/Procedure today Coding Level of Care Code Acute Operations Intern for Lisseth Zavaleta
[2021-02-03 07:50] VITALS: BP 140/99; PULSE 90; RESP 18; TEMP 36.4; O2SAT 96
[2021-02-03] MEDS: sodium chloride 0.9% 1,000 ML 30 ML IV (07:57)
[2021-02-03 08:07] LABS: Glucose Point of Care 106 mg/dL (70-110)
[2021-02-03 09:32] VITALS: BP 111/83; PULSE 72; RESP 14; TEMP 36.3; O2SAT 92
[2021-02-03 09:52] VITALS: BP 125/79; PULSE 74; RESP 18; O2SAT 95
--- NOTE | 2021-02-03 14:57 | ANE.PACU2 ---
Inpatient post-anesthesia follow up: Airway intact: Yes Vital signs: Temperature 97.4 F Pulse Rate 74 Respiratory Rate 18 Blood Pressure 125/79 Pulse Oximetry 95 Oxygen Delivery Me thod Room Air Oxygen Flow Rate Fraction of Inspir ed Oxygen Hydration adequate: Yes Nausea and vomiting: No Pain level: 1 Mental status: Baseline
[2021-02-04 13:02] LABS: H. Pylori / CLO Test Negative
== END 2021-02-03 10:01 | disposition home or self-care (01) ==
PROVIDERS: PCP Internal Medicine; Visit Provider Internal Medicine
PROC: 0DJ08ZZ Inspection of Upper Intestinal Tract, Via Natural or Artificial Opening Endoscopic (ICD-10-PCS; CPT 43235; principal; 2021-02-03 08:15)
PROC: 0DJD8ZZ Inspection of Lower Intestinal Tract, Via Natural or Artificial Opening Endoscopic (ICD-10-PCS; CPT 45378; 2021-02-03 08:15)
DX: R19.5 Other fecal abnormalities (principal); D12.3 Benign neoplasm of transverse colon; K21.00 Gastro-esophageal reflux disease with esophagitis, without bleeding; K29.70 Gastritis, unspecified, without bleeding; E11.9 Type 2 diabetes mellitus without complications; E03.9 Hypothyroidism, unspecified; G47.33 Obstructive sleep apnea (adult) (pediatric); Z83.3 Family history of diabetes mellitus
CPT/HCPCS: 36416; 43239; 45385; 82962; 87077; 88305; 96360; 96361; J2704; J7030

== ENCOUNTER → 2021-02-11 10:11 | Outpatient (BNVA) | payer MEDICARE, MEDICAID, SELFPAY | PROVIDERS: PCP Internal Medicine; Visit Provider Internal Medicine Rheumatology | DX: M19.90 Unspecified osteoarthritis, unspecified site (principal); Z79.899 Other long term (current) drug therapy; M02.30 Reiter's disease, unspecified site | CPT/HCPCS: 36415; 80076; 82565; 85025; 86140 ==

== ENCOUNTER 2021-02-21 14:32 | Inpatient (IN) | payer MEDICARE, MEDICAID, SELFPAY ==
[2021-02-21 14:41] VITALS: BP 166/80; PULSE 96; RESP 18; TEMP 33.7; O2SAT 96; BMI 33.7
--- NOTE | 2021-02-21 14:51 | W.ED.PSYCH ---
HPI - Psych General: Chief Complaint: Psychiatric Symptoms Stated Complaint: SI Time Seen by Provider: 02/21/21 14:50 History of Present Illness: HPI Narrative: 50 male presents emergency room with suicidal ideation. He was recently started on some antianxiety medication he states are not working as well as he thinks he should and he still having suicidal thoughts. He is done nothing to advance any of his thoughts he states he just simply thinks he was he would fall asleep and not wake up. He has not done anything intentionally to harm himself. He is calm cooperative and a good historian. He does not appear to be under the influence of any medic occasions or substances at this time. MD complaint: suicidal ideation and feels depressed Onset (ago): week(s) Duration: constant History of same: Yes Relieving factors: none Exacerbating factors: none Associated psychiatric symptoms: depression Associated symptoms: Reports depression and suicidal ideation; Deny auditory hallucinations, visual hallucinations, delusions, homicidal ideation or racing thoughts Treatments prior to arrival: none If self harm: admits thoughts of self harm Review of Systems Const: Denies: fever(s), chills, body aches, change in appetite, fatigue or malaise ENMT: Denies: throat pain, ear or mastoid pain, nasal discharge or nasal congestion Card: Denies: chest pain, edema, dyspnea on exertion or orthopnea Resp: Denies: dyspnea, productive cough or non-productive cough GI: Denies: abdominal pain, nausea, vomiting, hematemesis, coffee ground emesis, diarrhea, constipation, bloating, hematochezia or melena : Denies: flank pain, dysuria, urinary frequency or urinary urgency Skin/Breast: Denies: rash or pruritus Psych: Reports: depression and suicidal ideation; Denies: visual hallucinations, auditory hallucinations or homicidal ideation [facility] ED PFSH: Medical History Acute gastritis without bleeding Chronic joint pain Chronic post-traumatic stress disorder Dissociative identity disorder Elevated hemoglobin Elevated testosterone level Enrolled in chronic care management Ugxhnp-po-fsxo transgender person Generalized anxiety disorder High risk medication use Hypothyroidism Immunization counseling Inflammatory arthritis Major depressive disorder, recurrent episode with anxious distress MÉNDEZ (nonalcoholic steatohepatitis) Obstructive sleep apnea DAVONTE on CPAP Psychiatric care Psychiatric care Reactive arthritis Teresa's syndrome Urinary tract infection Vitamin D deficiency Surgical History H/O bilateral breast reduction surgery H/O rhinoplasty H/O thyroidectomy H/O: hysterectomy Family History Other Cancer Diabetes Denies family history of Anesthesia complication Bleeding disorder Social History Smoking and tobacco status: never smoked Alcohol intake: never Lives independently: Yes Marital status: Single Current occupational status: student Pets and animals: Yes (service dog and cat) Pets & animals: cat(s) and dog(s) History of recent travel: No Current gender identity: Trans Ddxzxk-ec-Okkk Physical Exam Const: COMMON NORMALS: no acute distress GENERAL APPEARANCE: cooperative and comfortable ORIENTATION/CONSCIOUSNESS: Yes awake, Yes oriented to person, Yes oriented to place and Yes oriented to time HENMT: COMMON NORMALS: normocephalic, atraumatic and hearing grossly normal bilaterally HEAD & SCALP: normocephalic and atraumatic Neck/C-Spine: COMMON NORMALS: no JVD Resp: COMMON NORMALS: normal respiratory effort, No retractions, No use of accessory muscles and clear to auscultation bilaterally AUSCULTATION: clear to auscultation bilaterally Cardio: COMMON NORMALS: no JVD, regular rate, regular rhythm and No murmurs present (Cardio) RATE: regular rate RHYTHM: regular rhythm GI: COMMON NORMALS: Soft to palpation and No hepatosplenomegaly present AUSCULTATION: Yes normoactive bowel sounds PALPATION: Yes Soft to palpation, No Tenderness to palpation present (GI), No Guarding due to palpation present (GI) and Yes No hepatosplenomegaly present Extremity: COMMON NORMALS: normal to inspection, capillary refill normal, no clubbing, cyanosis or edema, no calf tenderness and no pedal edema Neuro: SENSORIUM/ORIENTATION: Yes oriented to person, Yes oriented to place and Yes oriented to time Psych: THOUGHT CONTENT: No delusions Skin: COMMON NORMALS: no rashes or lesions noted GENERAL SKIN EXAM: no rashes or lesions noted Course Vital Signs: Vital signs: Vital Signs Temperature 92.7 F L 02/21/21 14:41 Pulse Rate 96 02/21/21 14:41 Respiratory Rate 18 02/21/21 14:41 Blood Pressure 166/80 02/21/21 14:41 Pulse Oximetry 96 02/21/21 14:41 MDM - Psych MDM Narrative: Medical decision making narrative: Admit for suicidal ideation discussed with Dr. Perez he is in agreement orders are written. Lab Data: Labs: Lab Results 02/21/21 15:40 WBC 9.1 10^3/uL 10^3/ uL (4.0-10.0) RBC 4.55 10^6/uL 10^6 /uL (4.1-5.3) Hgb 14.2 g/dL g/dL (11.7-16.6) Hct 41.9 % L % (42.0-52.0) MCV 92.1 fl fl (80-94) MCH 31.2 pg pg (28.0-34.0) MCHC 33.9 g/dL g/dL (30.0-36.0) RDW 12.3 % % (12.1-15.1) Plt Count 240 10^3/cmm 10^3 /cmm (130-400) MPV 9.4 fL fL (7.4-10.4) Neut % (Auto) 46.0 % % Lymph % (Auto) 39.3 % % [place] % (Auto) 7.8 % % Eos % (Auto) 5.9 % % Baso % (Auto) 0.8 % % Neut # (Auto) 4.16 10^3/uL 10^3 /uL (1.8-7.7) Lymph # (Auto) 3.6 10^3/uL 10^3/ uL (0.8-4.8) [place] # (Auto) 0.7 10^3/uL 10^3/ uL (0.2-0.9) Eos # (Auto) 0.5 10^3/uL 10^3/ uL (0.0-0.8) Baso # (Auto) 0.1 10^3/uL 10^3/ uL (0.0-0.1) Nucleated RBC % (a uto) 0 % % Nucleated RBCs # 0.0 /100WBC /100W BC Discharge Plan Discharge Patient Disposition: Admitted As Inpatient Clinical Impression: Suicidal ideation, Depression Condition: Stable Coding Level of Care Code ED Auto Brake Technician for Chg Fwd Exam Comprehensive
[2021-02-21 15:46] LABS: Basophils # 0.1 10^3/uL (0.0-0.1); Basophils % 0.8 %; Eosinophils # 0.5 10^3/uL (0.0-0.8); Eosinophils % 5.9 %; Hematocrit 41.9 % (42.0-52.0); Hemoglobin 14.2 g/dL (11.7-16.6); Lymphocytes # 3.6 10^3/uL (0.8-4.8); Lymphocytes % 39.3 %; Mean Corpuscular HGB Conc 33.9 g/dL (30.0-36.0); Mean Corpuscular Hemoglobin 31.2 pg (28.0-34.0); Mean Corpuscular Volume 92.1 fl (80-94); Mean Platelet Volume 9.4 fL (7.4-10.4); Monocytes # 0.7 10^3/uL (0.2-0.9); Monocytes % 7.8 %; Neutrophils # 4.16 10^3/uL (1.8-7.7); Nucleated Red Blood Cells % 0 %; Platelet Count 240 10^3/cmm (130-400); Red Blood Count 4.55 10^6/uL (4.1-5.3); Red Cell Distribution Width 12.3 % (12.1-15.1); White Blood Count 9.1 10^3/uL (4.0-10.0)
--- NOTE | 2021-02-21 15:50 | PC.NURSE ---
pt trying to pull out her central line. dressing redone. pt educated to leave line alone. pt spouse at bedside
[2021-02-21 16:28] LABS: Alanine Aminotransferase 74 U/L (0-41); Albumin Level 3.9 g/dL (3.5-5.2); Alkaline Phosphatase 141 IU/L (40-130); Anion Gap 14.7 (5-19); Aspartate Amino Transferase 83 U/L (0-40); Blood Urea Nitrogen 7 mg/dL (6-20); Carbon Dioxide 25 mmol/L (22-29); Chloride 104 mmol/L (98-107); Creatinine Clr Calc Pharmacy 157.7829; Globulin 3.5 g/dL (1.3-4.6); Glomerular Filtration Rate 120.4 mL/min (90-130); Glucose 105 mg/dL (65-115); Osmolality Calculated 288 mOsm/kg (285-295); Potassium 3.7 mmol/L (3.5-5.1); Sodium 140 mmol/L (136-145); Total Bilirubin 0.7 mg/dL (0.15-1.2); Total Protein 7.4 g/dL (6.6-8.7)
[2021-02-21 16:29] LABS: Acetaminophen < 5.0 ug/mL (10-30); Salicylate < 0.3 mg/dL (3-10)
[2021-02-21 17:42] VITALS: BP 167/105; PULSE 81; RESP 17; TEMP 37.1; O2SAT 95
[2021-02-21] MEDS: gemfibrozil 600 mg Tablet PO (19:01)
[2021-02-21 19:30] VITALS: PULSE 91; RESP 18; O2SAT 98
[2021-02-21 20:17] VITALS: BP 145/91; PULSE 77; RESP 18; TEMP 36.6; O2SAT 97
[2021-02-21] MEDS: trazodone 50 mg Tablet PO (21:10)
[2021-02-21] MEDS: hyDROXYzine 25 mg Capsule 50 MG PO (21:10)
[2021-02-22 06:00] VITALS: BP 143/84; PULSE 102; RESP 17; TEMP 36.7; O2SAT 97
[2021-02-22] MEDS: cholecalciferol (vitamin D3) 1,000 unit Tablet 2000 UNIT PO (08:35)
[2021-02-22] MEDS: gemfibrozil 600 mg Tablet PO ×2 (08:35→18:13)
[2021-02-22] MEDS: multivitamin therapeutic Tablet 1 TAB PO (08:35)
[2021-02-22] MEDS: hyDROXYzine 25 mg Capsule 50 MG PO ×2 (08:36→18:13)
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
[2021-02-22 14:00] VITALS: BP 111/70; PULSE 90; RESP 17; TEMP 37.1; O2SAT 96
[2021-02-22] MEDS: sertraline 50 mg Tablet PO (14:42)
[2021-02-22] MEDS: trazodone 50 mg Tablet PO (18:13)
[2021-02-22] MEDS: pantoprazole DR 40 mg Tablet PO (20:11)
[2021-02-22] MEDS: buPROPion XL (24 HR) 150 mg Tablet PO (20:11)
[2021-02-22 21:10] VITALS: BP 145/50; PULSE 106; RESP 17; TEMP 36.5; O2SAT 97
[2021-02-23 04:50] VITALS: BMI 33.7
[2021-02-23 06:00] VITALS: RESP 16
[2021-02-23] MEDS: levothyroxine 100 mcg Tablet PO (06:51)
[2021-02-23] MEDS: multivitamin therapeutic Tablet 1 TAB PO (09:48)
[2021-02-23] MEDS: sertraline 50 mg Tablet PO (09:48)
[2021-02-23] MEDS: gemfibrozil 600 mg Tablet PO ×2 (09:48→18:41)
[2021-02-23] MEDS: cholecalciferol (vitamin D3) 1,000 unit Tablet 2000 UNIT PO (09:48)
--- NOTE | 2021-02-23 13:05 | W.PM.NPUPNS ---
Subjective NPU Subjective: Interval history: Patient presents today reporting that he is stressed out by the milieu to some degree. However reports that he was suicidal when he presented and needs to be here. He reports he is doing okay on the medication changes made over the last couple days with Dr. Perez. We agreed we would work on safety considerations. As he was startled by someone they came to his room. Mental Status Exam MSE Comments: This is a obese transmale who presents in hospital scrubs with adequate grooming and eye contact. Long purple hair. Nails done/painted. No abnormal movements. Cooperative with exam in no acute distress. Speech was decreased rate and volume. Mood described as depressed, affect slightly subdued. Thought process organized. Thought content: Patient denied suicidal or homicidal ideation, there were no delusions noted but mild paranoia reported, he denied auditory or visual hallucinations. Attention and concentration were intact and memory appeared reliable but none were formally tested. He is alert and oriented x3. Insight and judgment appear fair and impulse control appears fair. Vitals/I&O/Wt Last Vital Signs Temp 97.7 F 02/22/21 21:10 Pulse 106 H 02/22/21 21:10 Resp 16 02/23/21 06:00 BP 145/50 02/22/21 21:10 Pulse Ox 97 02/22/21 21:10 Weight last 48 hrs Weight 106.594 kg Weight 106.594 kg Data NPU : 02/21/21 15:40 02/21/21 15:40 A&P Additional A&P Information (1) Major depressive disorder, recurrent episode with anxious distress: (2) Chronic post-traumatic stress disorder: (3) Generalized anxiety disorder: (4) Dissociative identity disorder: (5) Jcuphw-uj-yfgm transgender person: Additional A&P Information This is a 50 year old transgender man with a reported history of complex PTSD and dissociative identity disorder who was admitted for treatment of his suicidal ideation. RECOMMENDATION AND PLAN: 1. Continue current medication. 2. Continue every 15 minute checks for safety. 3. Encourage individual, group and milieu therapies. Involuntary Hold Information 96 Hour Hold: 96 Hour Involuntary Admission: No Attestations NPU Medical Necessity Statement*: Psychiatric hospitalization is medically necessary to prevent access to lethal means, to reevaluate medication, and to coordinate a safe discharge. Likely length of stay is 2-4 days. Coding Level of Care Code Acute Conference Planning Manager for Chg Fwd
[2021-02-23 14:00] VITALS: BP 137/83; PULSE 91; RESP 17; TEMP 36.9; O2SAT 95
[2021-02-23 19:55] VITALS: BP 163/80; PULSE 82; RESP 20; TEMP 36.8; O2SAT 94
[2021-02-23] MEDS: buPROPion XL (24 HR) 150 mg Tablet PO (21:10)
[2021-02-23] MEDS: pantoprazole DR 40 mg Tablet PO (21:11)
[2021-02-23 22:45] LABS: Bilirubin Urine Neg (Negative); Blood Urine Neg (Negative); Glucose Urine UA Norm (Normal); Ketones Urine Negative (Negative); Leukocyte Esterase Urine Negative (Negative); Nitrate Urine Negative (Negative); Protein Urine Neg (Negative); Urine Appearance Clear (CLEAR); Urine Color Yellow (Yellow); Urobilinogen Urine Norm (Negative); pH Urine 7 (5-7)
[2021-02-23 22:47] LABS: Bacteria Urine TRACE /hpf; RBC Urine 0-4 /hpf (0-2); Squamous Epithelial Cell Urine 0-4 /hpf (0-5); WBC Urine 0-4 /hpf (0-5)
[2021-02-23 22:48] LABS: Add Urine Culture? No; Amorphous Sediment Urine 3+ /hpf; Hyaline Casts Urine 0-4 /lpf
--- NOTE | 2021-02-24 00:30 | PC.NURSE ---
Complained of constipation initially. Declined wanting medication to help. Stated a hot shower would do. Patient then returned and stated that would not be needed that he had had large BM.
[2021-02-24 06:00] VITALS: BP 118/73; PULSE 78; RESP 18; TEMP 36.7; O2SAT 92
[2021-02-24] MEDS: levothyroxine 100 mcg Tablet PO (06:07)
[2021-02-24] MEDS: sertraline 50 mg Tablet PO (09:26)
[2021-02-24] MEDS: gemfibrozil 600 mg Tablet PO ×2 (09:26→23:28)
[2021-02-24] MEDS: multivitamin therapeutic Tablet 1 TAB PO (09:26)
[2021-02-24] MEDS: cholecalciferol (vitamin D3) 1,000 unit Tablet 2000 UNIT PO (09:26)
--- NOTE | 2021-02-24 10:46 | NPU.GN ---
[facility] Topic:Triggers and Coping Skills General Mood of Group: Nasim did attend and participate in group. Nasim spoke with others in group this morning but did not participate with sharing his activity sheets with triggers and coping skills.
[2021-02-24 14:00] VITALS: BP 117/77; PULSE 92; RESP 17; TEMP 36.2; O2SAT 95
--- NOTE | 2021-02-24 16:57 | W.PM.NPUPNS ---
Subjective NPU Subjective: Interval history: Patient presents today reporting that he is doing okay. Reports that the plan was to initiate Remeron and discontinue the Wellbutrin and we discussed the risk benefits alternatives of this plan and he understood agreed to proceed as is documented in this note. Continue to report some challenges with dealing with the other individuals on the unit. We discussed working with the treatment team on discharge planning. Reports that he is eating fine and sleeping okay. Mental Status Exam MSE Comments: This is a obese transmale who presents in hospital scrubs with adequate grooming and eye contact. Long purple hair. Nails done/painted. No abnormal movements. Cooperative with exam in no acute distress. Speech was decreased rate and volume. Mood described as depressed, but better when I arrived, affect slightly subdued. Thought process organized. Thought content: Patient denied suicidal or homicidal ideation, there were no delusions noted but mild paranoia reported, he denied auditory or visual hallucinations. Attention and concentration were intact and memory appeared reliable but none were formally tested. He is alert and oriented x3. Insight and judgment appear fair and impulse control appears fair. Vitals/I&O/Wt Last Vital Signs Temp 97.2 F L 02/24/21 14:00 Pulse 92 02/24/21 14:00 Resp 17 02/24/21 14:00 BP 117/77 02/24/21 14:00 Pulse Ox 95 02/24/21 14:00 Weight last 48 hrs Weight 106.594 kg Data NPU : 02/21/21 15:40 02/21/21 15:40 A&P Additional A&P Information 1) Major depressive disorder, recurrent episode with anxious distress: (2) Chronic post-traumatic stress disorder: (3) Generalized anxiety disorder: (4) Dissociative identity disorder: (5) Szyoye-kc-vmpi transgender person: Additional A&P Information This is a 50 year old transgender man with a reported history of complex PTSD and dissociative identity disorder who was admitted for treatment of his suicidal ideation. RECOMMENDATION AND PLAN: 1. Continue current medication. Except DC Wellbutrin and start Remeron 15 mg p.o. nightly. 2. Continue every 15 minute checks for safety. 3. Encourage individual, group and milieu therapies. Involuntary Hold Information 96 Hour Hold: 96 Hour Involuntary Admission: No Attestations NPU Medical Necessity Statement*: Psychiatric hospitalization is medically necessary to prevent access to lethal means, to reevaluate medication, and to coordinate a safe discharge. Likely length of stay is 1-3 days. Coding Level of Care Code Acute Vending Supervisor for Lisseth Zavaleta
[2021-02-24] MEDS: mirtazapine 15 mg Tablet PO (21:05)
[2021-02-24] MEDS: pantoprazole DR 40 mg Tablet PO (21:05)
[2021-02-24 21:22] VITALS: BP 161/98; PULSE 94; RESP 20; TEMP 36.6; O2SAT 99
--- NOTE | 2021-02-25 05:39 | PC.NURSE ---
Patient up at start of shift. Calm, cooperative, and compliant with care. Interacting well with others. No PRN medications given. Remained with one to one sitter throughout night d/t sleeping with CPAP.
[2021-02-25 05:55] VITALS: BP 96/66; PULSE 70; RESP 19; TEMP 36.4; O2SAT 96
[2021-02-25] MEDS: levothyroxine 100 mcg Tablet PO (06:48)
[2021-02-25] MEDS: sertraline 50 mg Tablet PO (08:47)
[2021-02-25] MEDS: gemfibrozil 600 mg Tablet PO (08:47)
[2021-02-25] MEDS: multivitamin therapeutic Tablet 1 TAB PO (08:47)
[2021-02-25] MEDS: cholecalciferol (vitamin D3) 1,000 unit Tablet 2000 UNIT PO (08:47)
--- NOTE | 2021-02-25 11:35 | NPU.GN ---
[facility] Topic:Mental Health Crossword Puzzle/ Psych Education General Mood of Group: Nasim did not attend group today he wanted to sleep.
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
[2021-02-25 14:52] VITALS: BP 96/66; PULSE 70; RESP 19; TEMP 36.4; O2SAT 96
== END 2021-02-25 15:09 | disposition home or self-care (01) | DRG 885 ==
LOC: ER 16:01 → NP 16:32
PROVIDERS: Physician Assistant; Psychiatry & Neurology Psychiatry; Admitting Provider Psychiatry & Neurology Child & Adolescent Psychiatry; Emergency Provider Family Medicine; PCP Internal Medicine; Visit Provider Psychiatry & Neurology Child & Adolescent Psychiatry
DX: F33.9 Major depressive disorder, recurrent, unspecified (principal); R45.851 Suicidal ideations; F41.1 Generalized anxiety disorder; F43.12 Post-traumatic stress disorder, chronic; G47.33 Obstructive sleep apnea (adult) (pediatric); Z99.89 Dependence on other enabling machines and devices; E89.0 Postprocedural hypothyroidism; F44.81 Dissociative identity disorder; Z63.4 Disappearance and death of family member; Z81.8 Family history of other mental and behavioral disorders; Z81.1 Family history of alcohol abuse and dependence
CPT/HCPCS: 36415; 80053; 80307; 81001; 85025; 97110; 97165; 99285

== ENCOUNTER → 2021-03-06 14:07 | Outpatient (BNVA) | payer MEDICARE, MEDICAID, SELFPAY | PROVIDERS: PCP Internal Medicine; Visit Provider Nurse Practitioner Psychiatric/Mental Health | DX: F33.9 Major depressive disorder, recurrent, unspecified (principal); F43.12 Post-traumatic stress disorder, chronic; F41.1 Generalized anxiety disorder; F44.81 Dissociative identity disorder; Z78.9 Other specified health status | CPT/HCPCS: 99214 ==

== ENCOUNTER → 2021-03-18 11:12 | Outpatient (BNVA) | payer MEDICARE, MEDICAID, SELFPAY | PROVIDERS: PCP Internal Medicine; Visit Provider Nurse Practitioner Psychiatric/Mental Health | DX: F33.9 Major depressive disorder, recurrent, unspecified (principal); F43.12 Post-traumatic stress disorder, chronic; F41.1 Generalized anxiety disorder; F44.81 Dissociative identity disorder; Z78.9 Other specified health status | CPT/HCPCS: 99214 ==

== ENCOUNTER 2021-03-22 12:29 | Emergency (ER) | payer MEDICARE, MEDICAID, SELFPAY ==
[2021-03-22 13:04] VITALS: BP 145/88; PULSE 83; RESP 16; TEMP 37; O2SAT 96; BMI 35.2
[2021-03-22 13:49] VITALS: BP 134/92; PULSE 87; O2SAT 97
[2021-03-22 13:53] LABS: Basophils # 0.1 10^3/uL (0.0-0.1); Basophils % 0.9 %; Eosinophils # 0.5 10^3/uL (0.0-0.8); Eosinophils % 5.1 %; Hematocrit 41.6 % (42.0-52.0); Hemoglobin 14.7 g/dL (11.7-16.6); Lymphocytes # 3.5 10^3/uL (0.8-4.8); Lymphocytes % 36.7 %; Mean Corpuscular HGB Conc 35.3 g/dL (30.0-36.0); Mean Corpuscular Hemoglobin 31.7 pg (28.0-34.0); Mean Corpuscular Volume 89.7 fl (80-94); Mean Platelet Volume 9.7 fL (7.4-10.4); Monocytes # 0.7 10^3/uL (0.2-0.9); Monocytes % 6.9 %; Neutrophils # 4.82 10^3/uL (1.8-7.7); Neutrophils % 50.1 %; Nucleated Red Blood Cells % 0 %; Platelet Count 224 10^3/cmm (130-400); Red Blood Count 4.64 10^6/uL (4.1-5.3); Red Cell Distribution Width 12.5 % (12.1-15.1); White Blood Count 9.6 10^3/uL (4.0-10.0)
--- NOTE | 2021-03-22 14:09 | ED_ITS ---
HPI - Abdominal Pain General: Chief Complaint: Abdominal Pain Stated Complaint: STOMACH PAIN/SENT FROM URGENT CARE Time Seen by Provider: 03/22/21 13:50 History of Present Illness: HPI narrative: 50-year-old female presents emergency room with complaint of abdominal pain. Pt has had over 3 months and is increasing in intensity. Patient's been seen by Dr. Del Rosario had a EGD and colonoscopy was found to have significant gastric irritation from aspirin. That was stopped and patient was started on a PPI when she continues to take but does not feel like it really helps very much. Patient has had previous hysterectomy but denies any other abdominal surgeries. There is an ongoing work-up to evaluate for biliary colic as a cause of the abdominal pain. MD elicited complaint: abdominal pain Pertinent past history: other Onset (ago): month(s) (3) Pain Consistency: intermittent and colicky Location: Diffuse Quality: cramping Radiation: none Exacerbating factors: nothing Relieving factors: nothing Associated Symptoms: Reports GI cramping, dyspepsia, heartburn, nausea and poor appetite; Denies anorexia, belching, bloating, change in stool character, chills, coffee ground emesis, constipation, diarrhea, dysuria, excessive flatus, fever(s), hematochezia, hematuria, hematemesis, fecal incontinence, loose stools, melena, syncope and vomiting Review of Systems Const: Denies: fever(s) or chills ENMT: Denies: throat pain, ear or mastoid pain, nasal discharge or nasal congestion Card: Denies: syncope Resp: Denies: dyspnea, productive cough or non-productive cough GI: Reports: nausea, heartburn and GI cramping; Denies: vomiting, hematemesis, coffee ground emesis, diarrhea, constipation, bloating, belching, excessive flatus, fecal incontinence, change in stool character, hematochezia or melena : Denies: dysuria or hematuria Skin/Breast: Denies: rash or pruritus PFSH ED PFSH: Medical History Acute gastritis without bleeding Chronic joint pain Chronic post-traumatic stress disorder Dissociative identity disorder Elevated hemoglobin Elevated testosterone level Enrolled in chronic care management Ggmgvn-mg-arcr transgender person Generalized anxiety disorder High risk medication use Hypothyroidism Immunization counseling Inflammatory arthritis Major depressive disorder, recurrent episode with anxious distress MÉNDEZ (nonalcoholic steatohepatitis) Obstructive sleep apnea DAVONTE on CPAP Psychiatric care Psychiatric care Reactive arthritis Teresa's syndrome Urinary tract infection Vitamin D deficiency Surgical History H/O bilateral breast reduction surgery H/O rhinoplasty H/O thyroidectomy H/O: hysterectomy Family History Other Cancer Diabetes Denies family history of Anesthesia complication Bleeding disorder Social History Smoking and tobacco status: never smoked Alcohol intake: never Lives independently: Yes Marital status: Single Current occupational status: student Pets and animals: Yes (service dog and cat) Pets & animals: cat(s) and dog(s) History of recent travel: No Current gender identity: Trans Mgzizm-ow-Rrrl Physical Exam Const: COMMON NORMALS: no acute distress GENERAL APPEARANCE: cooperative and comfortable ORIENTATION/CONSCIOUSNESS: Yes awake, Yes oriented to person, Yes oriented to place and Yes oriented to time HENMT: COMMON NORMALS: normocephalic, atraumatic and hearing grossly normal bilaterally HEAD & SCALP: normocephalic and atraumatic Neck/C-Spine: COMMON NORMALS: no JVD Resp: COMMON NORMALS: normal respiratory effort, No retractions, No use of accessory muscles and clear to auscultation bilaterally AUSCULTATION: clear to auscultation bilaterally Cardio: COMMON NORMALS: no JVD, regular rate, regular rhythm and No murmurs present (Cardio) RATE: regular rate RHYTHM: regular rhythm GI: COMMON NORMALS: No hepatosplenomegaly present AUSCULTATION: Yes Hypoactive bowel sounds present PALPATION: Yes Tenderness to palpation present (GI) (Diffuse), No Guarding due to palpation present (GI) and Yes No hepatosplenomegaly present PERCUSSION: tympanic to percussion Extremity: COMMON NORMALS: normal to inspection, capillary refill normal, no clubbing, cyanosis or edema, no calf tenderness and no pedal edema Neuro: SENSORIUM/ORIENTATION: Yes oriented to person, Yes oriented to place and Yes oriented to time Skin: COMMON NORMALS: no rashes or lesions noted GENERAL SKIN EXAM: no rashes or lesions noted Course Vital Signs: Vital signs: Vital Signs Temperature 98.6 F 03/22/21 13:04 Pulse Rate 73 03/22/21 14:55 Respiratory Rate 16 03/22/21 13:04 Blood Pressure 134/92 03/22/21 13:49 Pulse Oximetry 93 03/22/21 14:55 MDM - Abdominal Pain MDM Narrative: Medical decision making narrative: Tenderness mostly in the epigastrium but the remainder of exam is unremarkable no peritoneal signs. Reviewed labs findings with the patient. There is a slight bump in the lipase but there is no radiographic evidence of pancreatitis there is certainly no clinical evidence at this point. No referred pain to the left upper quadrant. This is been a chronic long ongoing issue for several months previously had endoscopy. Will discharge home increase proton pump inhibitor add Zofran clear liquid diet for 24 to 48 hours then advance as tolerated follow-up with his primary care return if is worsening problems Lab Data: Labs: Lab Results 03/22/21 03/22/21 03/22/21 13:12 13:12 13:12 WBC 9.6 10^3/uL 10^3/ uL (4.0-10.0) RBC 4.64 10^6/uL 10^6 /uL (4.1-5.3) Hgb 14.7 g/dL g/dL (11.7-16.6) Hct 41.6 % L % (42.0-52.0) MCV 89.7 fl fl (80-94) MCH 31.7 pg pg (28.0-34.0) MCHC 35.3 g/dL g/dL (30.0-36.0) RDW 12.5 % % (12.1-15.1) Plt Count 224 10^3/cmm 10^3 /cmm (130-400) MPV 9.7 fL fL (7.4-10.4) Neut % (Auto) 50.1 % % Lymph % (Auto) 36.7 % % Donley % (Auto) 6.9 % % Eos % (Auto) 5.1 % % Baso % (Auto) 0.9 % % Neut # (Auto) 4.82 10^3/uL 10^3 /uL (1.8-7.7) Lymph # (Auto) 3.5 10^3/uL 10^3/ uL (0.8-4.8) Donley # (Auto) 0.7 10^3/uL 10^3/ uL (0.2-0.9) Eos # (Auto) 0.5 10^3/uL 10^3/ uL (0.0-0.8) Baso # (Auto) 0.1 10^3/uL 10^3/ uL (0.0-0.1) Nucleated RBC % (a uto) 0 % % Nucleated RBCs # 0.0 /100WBC /100W BC Sodium 138 mmol/L mmol/L (136-145) Potassium 4.0 mmol/L mmol/L (3.5-5.1) Chloride 104 mmol/L mmol/L (98-107) Carbon Dioxide 21 mmol/L L mmol/ L (22-29) Anion Gap 17.0 (5-19) BUN 6 mg/dL mg/dL (6-20) Creatinine 0.8 mg/dL mg/dL (0.7-1.2) GFR Calculation 103.2 mL/min mL/m in (90-130) Glucose 103 mg/dL mg/dL (65-115) Calculated Osmolal ity 284 mOsm/kg L mOs m/kg (285-295) Calcium 9.0 mg/dL mg/dL (8.5-10.5) Total Bilirubin 0.8 mg/dL mg/dL (0.15-1.2) AST 155 U/L H U/L (0-40) ALT 93 U/L H U/L (0-41) Alkaline Phosphata se 154 IU/L H IU/L (40-130) Total Protein 7.7 g/dL g/dL (6.6-8.7) Albumin 3.9 g/dL g/dL (3.5-5.2) Globulin 3.8 g/dL g/dL (1.3-4.6) Lipase 105 U/L H U/L (13-60) Urine Color Dark yellow (Yellow) Urine Appearance Clear (CLEAR) Urine pH 5 (5-7) Ur Specific Gravit y 1.020 (1.005-1.030) Urine Protein Neg (Negative) Urine Glucose (UA) Norm (Normal) Urine Ketones Negative (Negative) Urine Blood 2+ H (Negative) Urine Nitrate Negative (Negative) Urine Bilirubin 1+ H (Negative) Urine Urobilinogen 1 mg/dL H mg/dL (Negative) Ur Leukocyte Rosanne ase 1+ H (Negative) Urine RBC 0-4 /hpf H /hpf (0-2) Urine WBC 5-10 /hpf H /hpf (0-5) Ur Squamous Epith Cells None /hpf /hpf (0-5) Amorphous Sediment 1+ /hpf /hpf Urine Bacteria Trace /hpf /hpf (NONE) Discharge Plan Discharge Patient Disposition: Home Clinical Impression: Abdominal pain, MÉNDEZ (nonalcoholic steatohepatitis), Elevated LFTs Condition: Stable Prescriptions: New Zofran 4 mg tablet 4 mg PO Q6H PRN (Reason: nausea and vomiting) Qty: 20 RF: 0 Changed pantoprazole 40 mg Tablet,Delayed Release (Dr/Ec) 40 mg PO BID 30 Days Qty: 30 RF: 1 No Action testosterone cypionate 200 mg/mL oil 100 mg SUBCUT .Every 2 weeks RF: 0 multivitamin [Daily Multi-Vitamin] Tablet 1 tab PO DAILY RF: 0 cholecalciferol (vitamin D3) 50 mcg (2,000 unit) tablet 2,000 unit PO DAILY Qty: 30 RF: 3 gabapentin 300 mg capsule 300 mg PO DIRECTED Qty: 30 RF: 1 bupropion HCl [Wellbutrin XL] 150 mg tablet extended release 24 hr 150 mg PO .noon Qty: 30 RF: 1 gemfibrozil 600 mg tablet 600 mg PO BID Qty: 60 RF: 0 ChlorTabs 4 mg tablet 4 mg PO Q6H PRN (Reason: Allergy Symptoms) Qty: 60 RF: 1 Vistaril 50 mg capsule 50 mg PO BID PRN (Reason: anxiety) Qty: 60 RF: 4 levothyroxine 100 mcg capsule 100 mcg PO DAILY 30 Days Qty: 30 RF: 1 Discharge Orders: Discharge ED (Routine); Ordered 03/22/21 Ordered By: Nick Fuller Discharge Diet: Clear Liquid Discharge Activity: Increase activity as tolerated Patient Instructions: Abdominal Pain (ED), Opioid Safety Activity Restrictions/Additional Instructions: Clear liquid diet for the next 24 to 48 hours and then advance as tolerated. Coding Level of Care Code ED Environmental Education Specialist for Lisseth Fwd Exam Comprehensive
[2021-03-22 14:20] VITALS: PULSE 78; O2SAT 95
--- NOTE | 2021-03-22 14:21 | CTR_ITS ---
PROCEDURE INFORMATION: Exam: CT Abdomen And Pelvis With Contrast Exam date and time: 03/22/2021 2:21 PM Age: 50 years old Clinical indication: Abdominal pain; Generalized; Prior surgery; Surgery date: 6+ months; Surgery type: Hyst; Patient HX: C/O abd pain x 3 months TECHNIQUE: Imaging protocol: Computed tomography of the abdomen and pelvis with contrast. Axial, coronal and sagittal reformatted images were created and reviewed. Radiation optimization: All CT scans at this facility use at least one of these dose optimization techniques: automated exposure control; mA and/or kV adjustment per patient size (includes targeted exams where dose is matched to clinical indication); or iterative reconstruction. Contrast material: OOMNI 300; Contrast volume: 95 ml; Contrast route: INTRAVENOUS (IV); COMPARISON: CT chest abd pel w con* 12/19/2020 1:40 AM RADIATION DOSE METRICS: Total DLP (mGy-cm): 1804.42 FINDINGS: Lungs: Mild linear stranding and groundglass at the lung bases, likely due to atelectasis and/or scarring. Diaphragm: Small hiatal hernia. Liver: Diffuse hepatic steatosis. Subtle nodularity of the hepatic contour, suggesting cirrhosis. Gallbladder and bile ducts: Cholelithiasis and mild gallbladder distention. Pancreas: Unremarkable. Spleen: Mild splenomegaly. Adrenal glands: 6 mm low-density left adrenal nodule, likely a benign adenoma. Kidneys and ureters: No mass. No radiodense calculi. No hydronephrosis. Stomach and bowel: No bowel wall thickening. No obstruction. No pneumatosis. Appendix: Normal. Intraperitoneal space: No free fluid. No organized fluid collection. No free air. Vasculature: Minimal atherosclerotic disease. No aneurysm or dissection. Lymph nodes: No pathologically enlarged lymph nodes. Urinary bladder: Unremarkable as visualized. Reproductive: Status post hysterectomy. Bones/joints: No acute osseous abnormality. Osteopenia. Degenerative changes. Soft tissues: Small, fat containing umbilical and right inguinal hernias. CT/CT abdomen pelvis w con* [id number]: 1[address] No CT evidence of acute intra-abdominal or pelvic pathology. 2. Additional findings, as above. COMMENTS: Consistent with the [employer]'s Incidental Findings Committee white paper (J Am Sri Radiol 2017): Any incidental adrenal lesion less than or equal to 1 cm is likely benign. No follow-up imaging is recommended for these lesions per consensus recommendations based on imaging criteria. Further lab evaluation could be pursued if warranted based on clinical findings. Radiation Dose CTDIVOL = (mGy): DLP = 1804.42 (mGy-cm)
[2021-03-22 14:24] LABS: Add Urine Microscopic? YES; Amorphous Sediment Urine 1+ /hpf; Bacteria Urine TRACE /hpf; Bilirubin Urine 1+ (Negative); Blood Urine 2+ (Negative); Glucose Urine UA Norm (Normal); Ketones Urine Negative (Negative); Leukocyte Esterase Urine 1+ (Negative); Nitrate Urine Negative (Negative); Protein Urine Neg (Negative); RBC Urine 0-4 /hpf (0-2); Urine Appearance Clear (CLEAR); Urine Color Dark Yellow (Yellow); Urobilinogen Urine 1 mg/dL (Negative); pH Urine 5 (5-7)
[2021-03-22 14:25] LABS: Add Urine Culture? Yes; Alanine Aminotransferase 93 U/L (0-41); Albumin Level 3.9 g/dL (3.5-5.2); Alkaline Phosphatase 154 IU/L (40-130); Aspartate Amino Transferase 155 U/L (0-40); Blood Urea Nitrogen 6 mg/dL (6-20); Carbon Dioxide 21 mmol/L (22-29); Chloride 104 mmol/L (98-107); Globulin 3.8 g/dL (1.3-4.6); Glomerular Filtration Rate 103.2 mL/min (90-130); Glucose 103 mg/dL (65-115); Lipase 105 U/L (13-60); Osmolality Calculated 284 mOsm/kg (285-295); Sodium 138 mmol/L (136-145); Total Bilirubin 0.8 mg/dL (0.15-1.2); Total Protein 7.7 g/dL (6.6-8.7)
[2021-03-22 14:55] VITALS: PULSE 73; O2SAT 93
[2021-03-22] MEDS: iohexol 300 mg/mL 100 mL Btl IV (15:30)
== END 2021-03-22 16:44 | disposition home or self-care (01) ==
PROVIDERS: Emergency Provider Family Medicine
DX: R10.9 Unspecified abdominal pain (principal); K75.81 Nonalcoholic steatohepatitis (NASH); R79.89 Other specified abnormal findings of blood chemistry; Z87.440 Personal history of urinary (tract) infections
CPT/HCPCS: 74177; 80053; 81001; 83690; 85025; 87086; 99283; Q9967

== ENCOUNTER → 2021-04-05 13:15 | Outpatient (BNVA) | payer MEDICARE, MEDICAID, SELFPAY | PROVIDERS: Visit Provider Registered Nurse Neonatal Intensive Care | DX: M79.672 Pain in left foot (principal) | CPT/HCPCS: 73630 ==

== ENCOUNTER → 2021-04-14 14:43 | Outpatient (BNVA) | payer MEDICARE, MEDICAID, SELFPAY | PROVIDERS: Visit Provider Nurse Practitioner Psychiatric/Mental Health | DX: F33.9 Major depressive disorder, recurrent, unspecified (principal); F43.12 Post-traumatic stress disorder, chronic; F41.1 Generalized anxiety disorder; F44.81 Dissociative identity disorder; Z78.9 Other specified health status | CPT/HCPCS: 99214 ==

== ENCOUNTER → 2021-04-30 14:34 | Outpatient (BNVA) | payer MEDICARE, MEDICAID, SELFPAY | PROVIDERS: Visit Provider Nurse Practitioner Psychiatric/Mental Health | DX: F33.9 Major depressive disorder, recurrent, unspecified (principal); F43.12 Post-traumatic stress disorder, chronic; F41.1 Generalized anxiety disorder; F44.81 Dissociative identity disorder; Z78.9 Other specified health status | CPT/HCPCS: 99214 ==

== ENCOUNTER 2021-05-13 20:00 | Outpatient (CLI) | payer MEDICARE, MEDICAID, SELFPAY | END 2021-05-13 20:01 | disposition home or self-care (01) | LOC: SLEEP 05-14 06:40 | PROVIDERS: Visit Provider Pediatrics | DX: G47.33 Obstructive sleep apnea (adult) (pediatric) (principal) | CPT/HCPCS: 95810 ==

== ENCOUNTER → 2021-05-14 08:04 | Outpatient (BNVA) | payer MEDICARE, MEDICAID, SELFPAY | PROVIDERS: Visit Provider Nurse Practitioner Psychiatric/Mental Health | DX: F33.9 Major depressive disorder, recurrent, unspecified (principal); F43.12 Post-traumatic stress disorder, chronic; F41.1 Generalized anxiety disorder; F44.81 Dissociative identity disorder; Z78.9 Other specified health status | CPT/HCPCS: 99214 ==

== ENCOUNTER 2021-05-21 06:46 | Outpatient (CLI) | payer MEDICARE, MEDICAID, SELFPAY ==
--- NOTE | 2021-05-21 08:00 | NM_ITS ---
WS: [id number] NUCLEAR MEDICINE HIDA SCAN CLINICAL INFORMATION: R10.9 - Unspecified abdominal pain TECHNIQUE: Following intravenous administration of 8.4 mCi of technetium 99m mebrofenin, images of th e abdomen were obtained over the course of 60 minutes. Next, gallbladder ejection fraction was determ ined by obtaining preprandial and one-hour postprandial images of the gallbladder following oral marzena stion of Ensure. COMPARISON: CT March 22, 2021 FINDINGS: Patchy radiotracer uptake in the left greater than right hepatic lobes. Diffuse segmental decreased r adiotracer uptake throughout the entire right hepatic lobe. Normal uptake in the left hepatic lobe. N ormal hepatic excretion. Hepatomegaly. Normal common bile duct and small bowel activity. Gallbladder is visualized by 30 minutes. No evidence of acute cholecystitis. Decreased abnormal Gallbladder ejection fraction 27%. Findings compatible with gallbladder dysfunctio n and suspicious for chronic cholecystitis. NM/NM hepatobiliary w phar* [id number] IMPRESSION: 1. No evidence of acute cholecystitis. 2. Decreased abnormal Gallbladder ejection fraction 27%. Findings compatible w ith gallbladder dysfunction and suspicious for chronic cholecystitis. 3. Diffuse decreased radiotracer uptake in the right hepatic lobe is nonspecif ic but differential considerations include right portal vein thrombosis, hepati c fibrosis due to cirrhosis, or hepatic mass or metastasis. Recommend further e valuation with contrast-enhanced CT abdomen pelvis with triphasic liver protoco l and/or ultrasound liver.
== END 2021-05-21 06:47 | disposition home or self-care (01) ==
LOC: RAD 06:49
PROVIDERS: PCP Family Medicine; Visit Provider Surgery
DX: R10.9 Unspecified abdominal pain (principal)
CPT/HCPCS: 78227; A9537

== ENCOUNTER → 2021-05-28 07:34 | Outpatient (BNVA) | payer MEDICARE, MEDICAID, SELFPAY | PROVIDERS: PCP Family Medicine; Visit Provider Nurse Practitioner Psychiatric/Mental Health | DX: F33.9 Major depressive disorder, recurrent, unspecified (principal); F43.12 Post-traumatic stress disorder, chronic; F41.1 Generalized anxiety disorder; F44.81 Dissociative identity disorder; Z78.9 Other specified health status | CPT/HCPCS: 99214 ==

== ENCOUNTER 2021-06-04 11:36 | Outpatient (CLI) | payer MEDICARE, MEDICAID, SELFPAY ==
[2021-06-04] MEDS: iohexol 300 mg/mL 50 mL Btl PO (11:50)
[2021-06-04] MEDS: iohexol 300 mg/mL 100 mL Btl IV (13:29)
--- NOTE | 2021-06-04 13:30 | CT_ITS ---
WS: [id number] CT ABDOMEN PELVIS TECHNIQUE: Contrast-enhanced CT of the abdomen and pelvis with coronal and sagittal reformatted image s. CLINICAL INFORMATION: R10.9 - Unspecified abdominal pain COMPARISON: March 22, 2021 DLP: 1190.[address] scans at [facility] use at least one of these dose optimization techniques: automated e xposure control; mA and/or kV adjustment per patient size (includes targeted exams where dose is matc hed to clinical indication); or iterative reconstruction. FINDINGS: Mild hepatomegaly with diffuse fatty infiltration of the liver. Slightly hydropic fluid distended gal lbladder. No gallbladder wall thickening or pericholecystic fluid. 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 Normal hepatic parenchymal enhance ment. Portal veins are patent. Normal splenic vein. Hepatic veins appear patent. No evidence of enhan cing mass or lesion RIGHT hepatic lobe. Tiny low-attenuation lesion likely cavernous hemangioma under surface RIGHT hepatic lobe measuring 9 mm is stable from the prior examination. Previously described findings on the HIDA scan likely due to transient hepatic perfusion differences. Lung bases are well aerated. Normal GE junction. Tiny fat-containing umbilical hernia. Normal pancrea tic parenchymal enhancement. Celiac and SMA are patent. Normal renal parenchymal enhancement. No hydr onephrosis. Adrenal glands are normal. Rectal distention with rectal constipation. Prior hysterectomy. Tortuous sigmoid colon. No evidence o f high-grade small or large bowel obstruction. Tiny fat-containing umbilical hernia. Normal lumbar sp ine. CT/CT abdomen pelvis w con* [id number] IMPRESSION: 1. Mild diffuse fatty infiltration the liver with mild hepatomegaly. 2. No evidence of hepatic mass or thrombosis. Portal veins and splenic vein ar e patent. Hepatic veins are patent. 3. Tiny low-attenuation lesion undersurface RIGHT hepatic lobe measuring 9 mm appears stable compared to previous although better visualized today likely inc idental cavernous hemangioma. 4. Normal caliber abdominal aorta. 5. Prior hysterectomy. 6. Rectal distention with rectal constipation. Tortuous sigmoid colon. 7. No evidence of small or large bowel obstruction. 8. No other significant changes compared to previous.
== END 2021-06-04 11:37 | disposition home or self-care (01) ==
LOC: RAD 11:36
PROVIDERS: PCP Family Medicine; Visit Provider Surgery
DX: K76.0 Fatty (change of) liver, not elsewhere classified (principal); R16.0 Hepatomegaly, not elsewhere classified; K59.00 Constipation, unspecified
CPT/HCPCS: 74177

== ENCOUNTER → 2021-06-11 07:44 | Outpatient (BNVA) | payer MEDICARE, MEDICAID, SELFPAY | PROVIDERS: Visit Provider Nurse Practitioner Psychiatric/Mental Health | DX: F33.9 Major depressive disorder, recurrent, unspecified (principal); F43.12 Post-traumatic stress disorder, chronic; F41.1 Generalized anxiety disorder; F44.81 Dissociative identity disorder; Z78.9 Other specified health status | CPT/HCPCS: 99214 ==

== ENCOUNTER → 2021-06-25 14:52 | Outpatient (BNVA) | payer OTHER, SELFPAY | PROVIDERS: Visit Provider Nurse Practitioner Psychiatric/Mental Health | DX: F41.1 Generalized anxiety disorder (principal); F44.81 Dissociative identity disorder; Z79.899 Other long term (current) drug therapy | CPT/HCPCS: 80061; 83036 ==

== ENCOUNTER → 2021-06-27 07:39 | Outpatient (BNVA) | payer MEDICARE, MEDICAID, SELFPAY ==
[2021-07-01 15:36] VITALS: BP 120/77; BMI 30.7
== END ==
PROVIDERS: Visit Provider Nurse Practitioner Psychiatric/Mental Health
DX: F33.9 Major depressive disorder, recurrent, unspecified (principal); F43.12 Post-traumatic stress disorder, chronic; F41.1 Generalized anxiety disorder; F44.81 Dissociative identity disorder; Z78.9 Other specified health status
CPT/HCPCS: 99214

== ENCOUNTER 2021-07-11 07:03 | Outpatient (CLI) | payer MEDICARE, MEDICAID, SELFPAY ==
[2021-07-01 15:36] VITALS: BP 120/77; BMI 30.7
--- NOTE | 2021-07-11 07:12 | NM_ITS ---
WS: [id number] NUCLEAR MEDICINE GASTRIC STUDY CLINICAL INFORMATION: NAUSEA TECHNIQUE: Following oral ingestion of cooked egg mixed with 1.1 mCi technetium 99m sulfur colloid, a nterior images of the stomach were obtained over the course of 90 minutes. Activity curve was perform ed over the course of 90 minutes with linear regression analysis. COMPARISON: None. FINDINGS: Oral ingestion of cooked egg mixture labeled with technetium 99m sulfur colloid. Normal gastric conto ur. Slightly delayed gastric emptying at the upper end of the range. 50% gastric emptying at 108 minutes. 39% gastric emptying at 90 minutes AL/[place] [id number] IMPRESSION: Findings compatible with slightly delayed gastric emptying compatible with graeme roparesis. *Normal median T1 half 90 minutes for solid egg meal (45-110 minutes). Delayed gastric retention is defined as 90% retained at 1 hour, 60% at 2 hour s, 30% at 3 hours, and 10% at 4 hours (normal percent gastric retention is 37-9 0% at 1 hour, 30-60% at 2 hours, and 0-10% at 4 hours).
== END 2021-07-11 07:04 | disposition home or self-care (01) ==
LOC: RAD 07:04
PROVIDERS: Visit Provider Family Medicine
DX: R68.81 Early satiety (principal); R11.0 Nausea; R63.4 Abnormal weight loss; R73.03 Prediabetes
CPT/HCPCS: 78264; A9541

== ENCOUNTER → 2021-07-16 07:39 | Outpatient (BNVA) | payer MEDICARE, MEDICAID, SELFPAY ==
[2021-07-01 15:36] VITALS: BP 120/77; BMI 30.7
== END ==
PROVIDERS: Visit Provider Nurse Practitioner Psychiatric/Mental Health
DX: F33.9 Major depressive disorder, recurrent, unspecified (principal); F43.12 Post-traumatic stress disorder, chronic; F41.1 Generalized anxiety disorder; F44.81 Dissociative identity disorder; Z78.9 Other specified health status
CPT/HCPCS: 99214

== ENCOUNTER 2021-07-22 10:02 | Outpatient (CLI) | payer MEDICARE, MEDICAID, SELFPAY ==
[2021-07-01 15:36] VITALS: BP 120/77; BMI 30.7
--- NOTE | 2021-07-22 10:14 | US_ITS ---
WS: [id number] THYROID ULTRASOUND HISTORY: HYPOTHYROIDISM/PARTIAL THYROIDECTOMY COMPARISON: None available. Right lobe: 1.8 cm x 2.0 cm x 4.0 cm (w x ap x l). Volume: 7.2 cm3. There is a small cyst in the superior pole of the RIGHT thyroid measuring 6 x 7 x 5 mm. Very lobulate d heterogeneous appearance of the gland. Left lobe: 3.8 cm x 3.3 cm x 6.8 cm (w x ap x l). Volume: 45.6 cm3. Markedly enlarged lobulated heterogeneous gland. Ill-defined multinodular goiter. No discrete well-fo rmed nodules. Isthmus: 0.3 cm. US/US thyroid [id number] IMPRESSION: 1. Markedly enlarged LEFT thyroid gland which is heterogeneous and probably mu ltinodular goiter. 2. Small RIGHT thyroid lobe.
== END 2021-07-22 10:03 | disposition home or self-care (01) ==
LOC: RAD 10:05
PROVIDERS: PCP Family Medicine; Visit Provider Family Medicine
DX: E89.0 Postprocedural hypothyroidism (principal)
CPT/HCPCS: 76536

== ENCOUNTER → 2021-07-30 07:17 | Outpatient (BNVA) | payer MEDICARE, MEDICAID, SELFPAY ==
[2021-07-01 15:36] VITALS: BP 120/77; BMI 30.7
== END ==
PROVIDERS: PCP Family Medicine; Visit Provider Nurse Practitioner Psychiatric/Mental Health
DX: F33.9 Major depressive disorder, recurrent, unspecified (principal); F43.12 Post-traumatic stress disorder, chronic; F41.1 Generalized anxiety disorder; F44.81 Dissociative identity disorder; Z78.9 Other specified health status
CPT/HCPCS: 99214

== ENCOUNTER 2021-08-05 05:38 | Day surgery (SDC) | payer MEDICARE, MEDICAID, SELFPAY ==
[2021-07-01 15:36] VITALS: BP 120/77; BMI 30.7
[2021-08-04 12:44] VITALS: BMI 28.3
[2021-08-05] VITALS (13 sets, daily range): BP systolic 116–138; BP diastolic 79–93; PULSE 74–97; RESP 13–19; TEMP 36.1–36.8; O2SAT 94–100
[2021-08-05] MEDS: sodium chloride 0.9% 1,000 ML 30 ML IV (06:05)
[2021-08-05] MEDS: acetaminophen 1,000 MG/100 ML PIGGYBACK 400 MG IV (06:06)
[2021-08-05] MEDS: heparin 5,000 unit/mL INJ 1 mL 2000 UNIT SUBCUT (06:10)
--- NOTE | 2021-08-05 06:21 | W.PM.OPSUD ---
Surgery/Procedure H&P Update DATE OF PROCEDURE: August 05, 2021 DATE H&P PERFORMED: 07/07/21 H&P UPDATE INFORMATION: I have reviewed H&P completed within last 30 days, I have examined patient prior to procedure and No changes to prior documentation PREOP DIAGNOSIS: Biliary dyskinesia PRIMARY INDICATION FOR PROCEDURE: The same PLANNED PROCEDURE: Operation Date: 08/05/21 07:00 Proposed Procedures p Laparoscopic Cholecystectomy 23150/k0.20(Not Applicable) - Wilder Gardner MD
[2021-08-05] MEDS: clindamycin 900 MG/50 ML PREMIX 100 MG IV (07:00)
--- NOTE | 2021-08-05 07:27 | ANES.PREANE2 ---
Pre-Anesthetic Assessment Height/Weight: Height 1.73 m Weight 84.368 kg Temp Pulse Resp BP Pulse Ox 97.0 F L 89 18 116/82 96 08/05/21 05:58 08/05/21 05:58 08/05/21 05:58 08/05/21 05:58 08/05/21 05:58 Preop Diagnosis: Biliary dyskinesia Operation Date: 08/05/21 07:00 Proposed Procedures p Laparoscopic Cholecystectomy 21980/k0.20(Not Applicable) - Wilder Gardner MD Familial anesthetic complications: None Was Beta Tee taken within 24 hours: N/A Was Clonidine taken within 24 hours: N/A Last intake: Intake Last Liquid Date 08/04/21 Last Liquid Time 20:00 Last Solid Date 08/04/21 Social No alcohol and No tobacco Exam alert, oriented x 3, clear to auscultation bilaterally and regular rate & rhythm Airway Submandibular: within normal limits Cervical ROM: within normal limits Mallampati: Class II Dentition: full GI MÉNDEZ Metabolic Diabetes Mellitus and Thyroid Disease [facility] [place] [place] [facility] Rheumatoid Arthritis Neuropsych Anxiety and Depression Anesthetic Plan ASA status: 2 Anesthesia: General Medications/Allergies Home Medications Medication Instructions Recorded Confirmed Last Taken Type testosterone cypionate 200 mg/mL 100 mg SUBCUT .Every 2 weeks ml 05/08/20 08/05/21 02/14/21 History intramuscular oil cholecalciferol (vitamin D3) 50 2,000 unit PO DAILY #30 tab 10/29/20 08/05/21 08/04/21 Rx mcg (2,000 unit) tablet chlorpheniramine maleate 4 mg 4 mg PO Q6H PRN #60 tab 02/25/21 08/05/21 08/04/21 Rx tablet (ChlorTabs) lisinopril 10 mg tablet 10 mg PO DAILY 05/13/21 08/05/21 08/04/21 History multivitamin 1 tab PO DAILY 06/10/21 08/05/21 08/04/21 History bupropion HCl 150 mg 24 hr tablet, 150 mg PO DAILY #30 tab 07/16/21 08/05/21 08/04/21 Rx extended release (Wellbutrin XL) haloperidol 5 mg tablet 2.5 mg PO BID PRN #30 tab 07/16/21 08/05/21 08/04/21 Rx hydroxychloroquine 200 mg tablet 200 mg PO DIRECTED tab 07/16/21 08/05/21 08/04/21 History (Plaquenil) Allergies Allergy/AdvReac Type Severity Reaction Status Date / Time fenofibrate Allergy Intermediate blisters Verified 08/05/21 05:54 Penicillins Allergy Unknown swelling Verified 08/05/21 05:54 prazosin Allergy Unknown Unknown Verified 08/05/21 05:54 diazepam [From Valium] Allergy Unknown Verified 08/05/21 05:54 sulfasalazine AdvReac Mild nausea Verified 08/05/21 05:54 vomiting sertraline [From Zoloft] AdvReac panic Verified 08/05/21 05:54 attacks Current Medications Generic Name Dose Route Start Last Admin Trade Name Freq PRN Reason Stop Dose Admin Sodium Chloride 1,000 mls @ 30 mls/hr 08/05/21 06:00 08/05/21 06:05 Sodium Chloride 0.9% IV 08/06/21 05:59 30 mls/hr .Q24H EFREN Administration PFSH Anesthesia Medical History Acute gastritis without bleeding Chronic joint pain Chronic post-traumatic stress disorder Dissociative identity disorder Elevated hemoglobin Elevated testosterone level Enrolled in chronic care management Dwzadh-qi-[id number] transgender person Generalized anxiety disorder High risk medication use Hypothyroidism Immunization counseling Inflammatory arthritis Major depressive disorder, recurrent episode with anxious distress MÉNDEZ (nonalcoholic steatohepatitis) Obstructive sleep apnea DAVONTE on CPAP Psychiatric care Psychiatric care Reactive arthritis Teresa's syndrome Urinary tract infection Vitamin D deficiency Surgical History H/O bilateral breast reduction surgery H/O rhinoplasty H/O thyroidectomy H/O: hysterectomy Family History Other Cancer Diabetes Denies family history of Anesthesia complication Bleeding disorder Social History Smoking and tobacco status: never smoked Alcohol intake: never Adopted: No Caregiver/support person: No Lives independently: Yes Household members: none Housing: House Marital status: Single Number of children: 0 Number of grandchildren: 0 Highest education level completed: Master's Degree Education level details: in 5 weeks will have Current occupational status: student and disabled Pets and animals: Yes (service dog and cat) Pets & animals: cat(s) and dog(s) History of recent travel: Yes Out of state: Yes Leisure activites: music, reading and other Leisure activities details: woodwork Current gender identity: Trans Stuwck-zo-Fxkn Leticia/Anglican: Wicca Special leticia needs: No Agree to transfusion: Yes Financial difficulty paying for basics: Somewhat Hard Data Anesthesia Cardiac Studies: No Data to Display
[2021-08-05] MEDS: lidocaine 2% INJ 20 mL INJECTION (07:29)
--- NOTE | 2021-08-05 08:48 | PM.OP ---
Operative Report Date of procedure: August 05, 2021 Pre-op diagnosis: Preop Diagnosis Biliary dyskinesia Post-op diagnosis: Chronic calculus cholecystitis with omental adhesions Macronodular liver cirrhosis both lobes No evidence of ascites Procedure done: 1-Laparoscopic cholecystectomy 2-Laparoscopic liver biopsy Specimens removed/disposition: Gallbladder and contents Liver biopsy Surgeon: Wilder Gardner MD Hematologist Oncologist: testing and regulating technician Misael Circulating nurse Praveena Anesthesia: General (GETA FISHING TACKLE REPAIRER Jean) Procedure: Patient was identified in the holding area and taken back to the operative suite, placed in supine position intubated by anesthesia . Time-out was done verifying the patient's name/date of /planned procedure and destination after the procedure, all were in agreement. SCDs confirmed to be functioning, preoperative antibiotics administered per protocol, and beta franny protocol was confirmed. Patient was appropriately secured to the table, footboard was applied to the OR table, before prep and drape anesthesia was asked to tilt the table back and forth to make sure that the patient is appropriately secured and she was. Prep and drape of the abdomen was done under the usual sterile technique, followed by that supraumbilical skin incision,skin incision was done by a 15 blade knife, and stay sutures were applied to the fascia and Rudd trocar technique was used to enter the abdominal without injuring any abdominal viscera, started by low flow gas insufflation followed by a high flow, started with a 10 mm laparoscope and under direct vision there was no evidence of any injuries, the scope then switched to a 30? ,10 millimeter scope and under direct visualization 5 millimeter trocar was inserted in the epigastric region followed by two 5 mm trocars were inserted in the right upper quadrant that was done after injection of local lidocaine 2% at all incision sites. Gallbladder showed chronic cholecystitis and cirrhotic liver with macro nodules mild to moderate Patient was then positioned in the head up and tilted to the left. Ratcheted forceps were introduced into the lateral most 5mm port and was applied unto the fundus of the gallbladder cephalad and using Bullet forceps the infundibulum of the gallbladder was retracted laterally. Lots of omental adhesions surrounding the gallbladder that took some time to take the adhesions down safely. Using [place] forceps then L-hook cautery to dissect the peritoneum overlying the Calot's triangle which was then opened medially and laterally until the cystic duct and the cystic artery were skeletonized. Dissection was carried along the body of the gallbladder and after ensuring critical view of safety was identfied. Cystic duct and cystic artery where seen connected to the gallbladder. Clips were applied on the cystic duct towards the common bile duct 1 towards the gallbladder then divided is in sharp scissors, 2 clips were then applied onto the cystic artery and 1 towards the gallbladder and divided by sharp scissors. Additional vessel was clipped and divided Dissection was then carried along of the gallbladder from the gallbladder fossa using cautery as well as sharp dissection with heat energy. The gallbladder then was dissected out from the gallbladder fossa totally , cholecystectomy was then achieved and was placed in an Endo Catch bag and then retrieved from the Rudd trocar site under direct visualization using a 5 mm 30? scope through the epigastric trocar, specimen was then passed to the circulating nurse to go for permanent pathology,irrigation and hemostasis was done to the gallbladder fossa after hemostasis was secured, final survey laparoscopy was done that showed no injuries. Suction irrigation was obtained. I decided at this point to obtain and liver biopsy from the edge of the gallbladder fossa to stage appropriately the liver cirrhosis that was sent for permanent pathology. Appropriate hemostasis was achieved. There was no evidence of ascites or varices. The supraumbilical fascial defect was then closed using interrupted number one PDS sutures using a fascial closure device ;Vince Perez under direct visualization,following that Gas was allowed to deflate,Trocars were then taken out under direct vision there was no evidence of bleeding. Specimens were passed to the circulating nurse for permanent pathology. No drains were placed and the supraumbilical incision as well as all trocar sites were closed by skin staple to approximate the skin edges of the incisions , dressing was applied in the form dry dressing and the patient patient got extubated and was taken to recovery area in a stable condition. Count of sponges,needles and instruments were completed at the end of the procedure I was present for the whole entire procedure.
--- NOTE | 2021-08-05 08:52 | P.PCN_ITS ---
PACU note Narrative: VSS, Good respiratory effort, report to SUPERVISOR GAS METER REPAIR Exam: awake
--- NOTE | 2021-08-05 08:52 | PM.PACU ---
PACU note Narrative: VSS, Good respiratory effort, report to FLOW NURSE Exam: awake
--- NOTE | 2021-08-05 08:52 | SUR.PHASEI ---
0840 PT TO PACU 5 PT SLEEPS WITH ORAL AIRWAY IN PLACE, MANUAL ASSIST NEEDED TO KEEP AIRWAY OPENL. PT HAS GOOD RESPIRATORY EFFORT,SATS MAINTAINED 97-100 PER 8L MASK. IV TO RT WRIST #18 WITH NS APPROX 100ML UP AT KVO RATE. PT ID BAND TO LT WRIST , PT ID'D WITH 2 IDENTIFIERS, ABDOMEN SOFT WITH 4 SITES TO ABDOMEN WITH ANDRY AND BANDAIDS, D/I BILAT SCDS ON.
--- NOTE | 2021-08-05 09:00 | SUR.PHASEI ---
PT AWAKES TO VOICE, ORAL AIRWAY OUT, PT QUICKLY BACK TO SLEEP VSS. ABD SOFT AND UNCHANGED.
--- NOTE | 2021-08-05 09:20 | SUR.PHASEI ---
PT AWAKE ALERT TAKING OCC ICE CHIPS PT VERBALLY DENIES PAIN AND NAUSEA, PT REQUESTS SPRITE TO SIP ON, SATS 95% ON RA , NO DISTRESS NOTED. WILL GIVE REPORT TO OPS NURSE.
[2021-08-05] MEDS: oxyCODONE 5 mg IR Tab/Cap PO (09:50)
--- NOTE | 2021-08-05 15:29 | ANE.PACU2 ---
Inpatient post-anesthesia follow up: Airway intact: Yes Vital signs: Temperature 97.2 F Pulse Rate 75 Respiratory Rate 18 Blood Pressure 127/79 Pulse Oximetry 95 Oxygen Delivery Me thod Room Air Oxygen Flow Rate 8 Fraction of Inspir ed Oxygen Hydration adequate: Yes Nausea and vomiting: No Pain level: 3 Mental status: Baseline
== END 2021-08-05 11:26 | disposition home or self-care (01) ==
PROVIDERS: PCP Family Medicine; Visit Provider Surgery
PROC: 0FT44ZZ Resection of Gallbladder, Percutaneous Endoscopic Approach (ICD-10-PCS; CPT 47562; principal; 2021-08-05 07:00)
DX: K80.10 Calculus of gallbladder with chronic cholecystitis without obstruction (principal); K74.60 Unspecified cirrhosis of liver; E11.9 Type 2 diabetes mellitus without complications; M06.9 Rheumatoid arthritis, unspecified; E03.9 Hypothyroidism, unspecified; G47.33 Obstructive sleep apnea (adult) (pediatric)
CPT/HCPCS: 47379; 47562; 88304; 88307; J1100; J1644; J2250; J2405; J2704; J2710; J3010; J3490; J7030

== ENCOUNTER → 2021-08-14 14:01 | Outpatient (BNVA) | payer MEDICARE, MEDICAID, SELFPAY ==
[2021-07-01 15:36] VITALS: BP 120/77; BMI 30.7
== END ==
PROVIDERS: PCP Family Medicine; Visit Provider Surgery
DX: Z98.890 Other specified postprocedural states (principal); K74.60 Unspecified cirrhosis of liver

== ENCOUNTER → 2021-08-20 07:14 | Outpatient (BNVA) | payer MEDICARE, MEDICAID, SELFPAY ==
[2021-07-01 15:36] VITALS: BP 120/77; BMI 30.7
== END ==
PROVIDERS: PCP Family Medicine; Visit Provider Nurse Practitioner Psychiatric/Mental Health
DX: F33.9 Major depressive disorder, recurrent, unspecified (principal); F43.12 Post-traumatic stress disorder, chronic; F41.1 Generalized anxiety disorder; F44.81 Dissociative identity disorder; Z78.9 Other specified health status
CPT/HCPCS: 99214

== ENCOUNTER → 2021-08-28 15:00 | Outpatient (BNVA) | payer MEDICARE, MEDICAID, SELFPAY ==
[2021-07-01 15:36] VITALS: BP 120/77; BMI 30.7
== END ==
PROVIDERS: PCP Family Medicine; Visit Provider Surgery
DX: Z98.890 Other specified postprocedural states (principal)

== ENCOUNTER 2021-09-16 14:20 | Outpatient (CLI) | payer MEDICARE, MEDICAID, SELFPAY ==
[2021-07-01 15:36] VITALS: BP 120/77; BMI 30.7
--- NOTE | 2021-09-16 14:30 | CT_ITS ---
WS: [id number] CT NECK TECHNIQUE: Contrast-enhanced CT of the neck with coronal and sagittal reformatted images. CLINICAL INFORMATION: NONTOXIC MULTINODULAR GOITER COMPARISON: Ultrasound July 22, 2021 DLP: 305.[address] scans at [facility] use at least one of these dose optimization techniques: automated e xposure control; mA and/or kV adjustment per patient size (includes targeted exams where dose is matc hed to clinical indication); or iterative reconstruction. FINDINGS: Heterogeneously enhancing LEFT thyroid mass likely representing goiter measuring 4.5 x 4.3 x 5.6 cm A P by transverse by craniocaudal. Associated capsular calcification. Mass effect on the trachea at the thoracic inlet with LEFT to RIGHT midline shift. Additional heterogeneously enhancing RIGHT thyroid bed nodule with enhancement characteristics similar to the LEFT goiter. Right-sided nodule measures 2 .0 x 1.9 x 2.7 cm AP by transverse by craniocaudal. Mastoid air cells are well aerated. Mild mucosal thickening ethmoid air cells. Prior postoperative ch anges anterior wall maxillary sinuses. Normal posterior nasopharynx. Normal parapharyngeal fat. Parot id glands are normal. Normal submandibular glands. No cervical lymphadenopathy. Lung apices are normal. Straightening of the normal cervical lordosis. Mild spondylitic changes cervi krystian spine. 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 CT/CT neck w con* [id number] IMPRESSION: 1. Heterogeneous enhancing LEFT thyroid mass likely goiter measuring 4.5 x 4.3 x 5.6cm . LEFT to RIGHT mass effect on the trachea at the thoracic inlet. 2. Smaller heterogeneously enhancing RIGHT thyroid lesion in the thyroid bed m easuring 2.0 x 1.9 x 2.7 cm 3. No cervical lymphadenopathy. 4. No other acute findings. 5. Normal salivary glands.
== END 2021-09-16 14:21 | disposition home or self-care (01) ==
LOC: RAD 14:21
PROVIDERS: PCP Family Medicine; Visit Provider Specialist
DX: E04.2 Nontoxic multinodular goiter (principal)
CPT/HCPCS: 70491; 80053; 82105; Q9967

== ENCOUNTER 2021-09-30 07:49 | Outpatient (CLI) | payer MEDICARE, MEDICAID, SELFPAY ==
[2021-07-01 15:36] VITALS: BP 120/77; BMI 30.7
--- NOTE | 2021-09-30 08:00 | FL_ITS ---
WS: [id number] ESOPHAGRAM WITH FLUOROSCOPY HISTORY: NONTOXIC MULTINODULAR GOITER COMPARISON: None available. FLUOROSCOPY TIME: 1min [id number] # of spot films: 14 Small cervical osteophytes at C5-6 with minimal encroachment upon the posterior cervical esophagus. T hese osteophytes do not appear to limit the barium. Esophagus and swallowing function: Patient swallowed the barium mixture without difficulty. No strict ures or mucosal abnormalities are identified. Patient has a very large LEFT thyroid mass. Thyroid is displacing the esophagus posterior and to the RIGHT. Despite the mass effect no significant limitatio n during swallowing of the barium. Gastroesophageal reflux: None. Hiatal hernia: Moderate size hiatal hernia was intermittently visualized on this examination. FL/OK barium swallow [id number] IMPRESSION: 1. Moderate-sized hiatal hernia. 2. No significant strictures or mucosal abnormalities. 3. Marked displacement of the esophagus to the RIGHT and posterior by a known large LEFT thyroid mass.
== END 2021-09-30 07:50 | disposition home or self-care (01) ==
LOC: RAD 07:50
PROVIDERS: PCP Family Medicine; Visit Provider Specialist
DX: E04.9 Nontoxic goiter, unspecified (principal); K44.9 Diaphragmatic hernia without obstruction or gangrene
CPT/HCPCS: 74220

== ENCOUNTER → 2021-10-20 07:05 | Outpatient (BNVA) | payer MEDICARE, MEDICAID, SELFPAY ==
[2021-07-01 15:36] VITALS: BP 120/77; BMI 30.7
== END ==
PROVIDERS: PCP Family Medicine; Visit Provider Nurse Practitioner Psychiatric/Mental Health
DX: F33.9 Major depressive disorder, recurrent, unspecified (principal); F43.12 Post-traumatic stress disorder, chronic; F41.1 Generalized anxiety disorder; F44.81 Dissociative identity disorder; Z78.9 Other specified health status
CPT/HCPCS: 99214

== ENCOUNTER 2021-11-12 06:07 | Outpatient (CLI) | payer MEDICARE, MEDICAID, SELFPAY ==
[2021-07-01 15:36] VITALS: BP 120/77; BMI 30.7
--- NOTE | 2021-11-12 06:15 | US_ITS ---
WS: [id number] RIGHT UPPER QUADRANT ULTRASOUND HISTORY: MÉNDEZ COMPARISON: 08/05/2020 Liver: 14.4 cm in length. Liver is normal size. There is coarse echotexture throughout the liver whic h has progressed since 08/05/2020. Surface of the liver is slightly irregular no mass or bile duct dil atation. Small cyst near the falciform ligament measures 1.5 x 0.7 x 1.4 cm. Portal Vein: Normal hepatopetal flow with monophasic waveform. Gallbladder: Surgically removed. CBD: 0.3 cm Pancreas: Not well visualized. Right kidney: 10.4 cm in length. Normal size and echogenicity. No hydronephrosis or mass. Aorta and IVC: Unremarkable abdominal aorta and IVC. No ascites. US/US liver [id number] IMPRESSION: 1. Status post cholecystectomy. 2. Coarse echotexture throughout the liver with surface irregularity suggestin g hepatic steatosis and possible early changes of cirrhosis. These changes have progressed since the prior ultrasound of 08/05/2020. 3. Small cyst near the falciform ligament.
== END 2021-11-12 06:08 | disposition home or self-care (01) ==
PROVIDERS: PCP Family Medicine; Visit Provider Internal Medicine
DX: K75.81 Nonalcoholic steatohepatitis (NASH) (principal)
CPT/HCPCS: 76705

== ENCOUNTER 2021-12-31 08:33 | Emergency (ER) | payer MEDICARE, MEDICAID, SELFPAY ==
[2021-07-01 15:36] VITALS: BP 120/77; BMI 30.7
[2021-12-31 08:37] VITALS: BP 119/78; PULSE 101; RESP 18; TEMP 37.1; O2SAT 96
[2021-12-31 09:48] LABS: Urine Appearance Cloudy (CLEAR); Urine Color Brown (Yellow); pH Urine 5 (5-7)
[2021-12-31 09:52] LABS: Add Urine Microscopic? YES; Bilirubin Urine Neg (Negative); Blood Urine 3+ (Negative); Glucose Urine UA Norm (Normal); Ketones Urine Negative (Negative); Leukocyte Esterase Urine Negative (Negative); Nitrate Urine Negative (Negative); Protein Urine 1+ (Negative); Urobilinogen Urine Norm (Negative)
[2021-12-31 09:53] LABS: Add Urine Culture? Yes; Calcium Oxalate Crystals Urine RARE /hpf; RBC Urine TOO NUMEROUS TO CNT /hpf (0-2); Squamous Epithelial Cell Urine 0-4 /hpf (0-5); WBC Urine 0-4 /hpf (0-5)
--- NOTE | 2021-12-31 11:34 | W.ED.MALEGU ---
HPI - Male Genitourinary General: Chief complaint: Urogenital-Male Stated complaint: urinating blood, Itchy throat Time Seen by Provider: 12/31/21 11:28 History of Present Illness: Patient is a 51-year-old male comes to the ED with hematuria. Patient is a female to male transgender person. Approximately yesterday patient noticed a red/pink tint to urine. Patient states that they feel completely normal and have no other symptoms. Denies any fevers, flank pain, pain when urinating, bladder pain, lower back pain, nausea or vomiting. Denies any history of kidney stones. Associated symptoms: Reports hematuria; Deny dysuria, nausea or vomiting Review of Systems Const: Denies: fever(s), chills or fatigue Eyes: Denies: change in vision or eye discomfort ENMT: Denies: throat pain, odynophagia, nasal discharge or nasal congestion Card: Denies: chest pain, palpitations, edema, swelling of feet/ankles, dyspnea on exertion or orthopnea Resp: Denies: dyspnea, productive cough or non-productive cough GI: Denies: abdominal pain, nausea, vomiting, diarrhea, constipation or hematochezia : Reports: hematuria; Denies: flank pain, difficulty urinating, dysuria, genital pain or genital lesions Musc: Denies: neck pain, back pain or extremity swelling Skin/Breast: Denies: rash or new lesions Neuro: Denies: headache(s), numbness in extremities or weakness in extremities [facility] ED PFSH: Medical History Acute gastritis without bleeding Biliary dyskinesia Cholelithiasis Chronic joint pain Chronic post-traumatic stress disorder Dissociative identity disorder Elevated hemoglobin Elevated testosterone level Enrolled in chronic care management [id number] transgender person Generalized anxiety disorder High risk medication use Hypothyroidism Immunization counseling Inflammatory arthritis Major depressive disorder, recurrent episode with anxious distress MÉNDEZ (nonalcoholic steatohepatitis) Obstructive sleep apnea DAVONTE on CPAP Psychiatric care Psychiatric care Reactive arthritis Teresa's syndrome Urinary tract infection Vitamin D deficiency Surgical History H/O bilateral breast reduction surgery H/O rhinoplasty H/O thyroidectomy H/O: hysterectomy Family History Other Cancer Diabetes Denies family history of Anesthesia complication Bleeding disorder Social History Smoking and tobacco status: never smoked Alcohol intake: never Adopted: No Caregiver/support person: No Lives independently: Yes Household members: none Housing: House Marital status: Single Number of children: 0 Number of grandchildren: 0 Highest education level completed: Master's Degree Education level details: in 5 weeks will have Current occupational status: student and disabled Pets and animals: Yes (service dog and cat) Pets & animals: cat(s) and dog(s) History of recent travel: Yes Out of state: Yes Leisure activites: music, reading and other Leisure activities details: woodwork Current gender identity: Trans [id number]/Congregational: Wicca Special leticia needs: No Agree to transfusion: Yes Financial difficulty paying for basics: Somewhat Hard Physical Exam Const: COMMON NORMALS: no acute distress, patient oriented x3, healthy appearing and alert GENERAL APPEARANCE: cooperative and comfortable HENMT: COMMON NORMALS: normocephalic HEAD & SCALP: normocephalic MOUTH: Normal oral and palatal mucosa present THROAT: posterior oropharynx normal and uvula midline Neck/C-Spine: COMMON NORMALS: supple GENERAL: Yes normal visual inspection Resp: COMMON NORMALS: normal respiratory effort, No retractions, No use of accessory muscles and clear to auscultation bilaterally AUSCULTATION: clear to auscultation bilaterally Cardio: COMMON NORMALS: regular rate, regular rhythm, S1 normal heart sound present, S2 normal heart sound present, No gallops present (Cardio), No clicks present (Cardio), No murmurs present (Cardio) and Peripheral pulses 2+ throughout RATE: regular rate RHYTHM: regular rhythm HEART SOUNDS: S1 normal heart sound present and S2 normal heart sound present PERIPHERAL PULSES: Peripheral pulses 2+ throughout GI: COMMON NORMALS: Normal to inspection, nondistended, normoactive bowel sounds present, Soft to palpation, non-tender and no masses PALPATION: Yes Soft to palpation : COMMON NORMALS: Yes no CVA tenderness BLADDER/KIDNEY EXAM: Yes no CVA tenderness Back/Pelvis: COMMON NORMALS: no CVA tenderness Extremity: COMMON NORMALS: normal to inspection Neuro: COMMON NORMALS: patient oriented x3 SENSORIUM/ORIENTATION: Yes alert GAIT: Yes Normal gait present Skin: GENERAL SKIN EXAM: dry skin Course Vital Signs: Vital signs: Vital Signs Temperature 98.8 F 12/31/21 08:37 Pulse Rate 70 12/31/21 11:37 Respiratory Rate 16 12/31/21 11:37 Blood Pressure 116/75 12/31/21 11:37 Pulse Oximetry 97 12/31/21 11:37 Oxygen Delivery Me thod 12/31/21 11:37 MDM - Male Medical Decision Making Patient is a 51-year-old male comes to the ED with hematuria. Patient is a female to male transgender person. Approximately yesterday patient noticed a red/pink tint to urine. Patient states that they feel completely normal and have no other symptoms. Denies any fevers, flank pain, pain when urinating, bladder pain, lower back pain, nausea or vomiting. Denies any history of kidney stones. Vitals stable. Exam is benign and patient appears nontoxic and in no acute distress or pain. CBC, CMP were unremarkable. UA shows red blood cells and a little bit of calcium oxalate crystals. Patient is stable for discharge home. I placed order with case management for patient be referred to Dr. Barajas for follow-up on hematuria. Return to ED precautions given. Patient understood and agreed with plan. Lab Data I reviewed the patient's lab results. : 12/31/21 11:48 12/31/21 11:48 Laboratory Results WBC 8.7 10^3/uL (4.0-10.0) 12/31/21 11:48 RBC 4.96 10^6/uL (4.1-5.3) 12/31/21 11:48 Hgb 15.7 g/dL (11.7-16.6) 12/31/21 11:48 Hct 46.4 % (42.0-52.0) 12/31/21 11:48 MCV 93.5 fl (80-94) 12/31/21 11:48 MCH 31.7 pg (28.0-34.0) 12/31/21 11:48 MCHC 33.8 g/dL (30.0-36.0) 12/31/21 11:48 RDW 11.8 % (12.1-15.1) L 12/31/21 11:48 Plt Count 251 10^3/cmm (130-400) 12/31/21 11:48 MPV 9.1 fL (7.4-10.4) 12/31/21 11:48 Neut % (Auto) 56.0 % 12/31/21 11:48 Lymph % (Auto) 30.2 % 12/31/21 11:48 [place] % (Auto) 5.8 % 12/31/21 11:48 Eos % (Auto) 6.4 % 12/31/21 11:48 Baso % (Auto) 1.3 % 12/31/21 11:48 Neut # (Auto) 4.89 10^3/uL (1.8-7.7) 12/31/21 11:48 Lymph # (Auto) 2.6 10^3/uL (0.8-4.8) 12/31/21 11:48 [place] # (Auto) 0.5 10^3/uL (0.2-0.9) 12/31/21 11:48 Eos # (Auto) 0.6 10^3/uL (0.0-0.8) 12/31/21 11:48 Baso # (Auto) 0.1 10^3/uL (0.0-0.1) 12/31/21 11:48 Nucleated RBC % (auto) 0 % 12/31/21 11:48 Nucleated RBCs # 0.0 /100WBC 12/31/21 11:48 Sodium 139 mmol/L (136-145) 12/31/21 11:48 Potassium 4.2 mmol/L (3.5-5.1) 12/31/21 11:48 Chloride 103 mmol/L (98-107) 12/31/21 11:48 Carbon Dioxide 28 mmol/L (22-29) 12/31/21 11:48 Anion Gap 12.2 (5-19) 12/31/21 11:48 BUN 10 mg/dL (6-20) 12/31/21 11:48 Creatinine 0.9 mg/dL (0.7-1.2) 12/31/21 11:48 GFR Calculation 89.7 mL/min (90-130) L 12/31/21 11:48 Glucose 95 mg/dL (65-115) 12/31/21 11:48 Calculated Osmolality 287 mOsm/kg (285-295) 12/31/21 11:48 Calcium 9.1 mg/dL (8.5-10.5) 12/31/21 11:48 Total Bilirubin 0.9 mg/dL (0.15-1.2) 12/31/21 11:48 AST 30 U/L (0-40) 12/31/21 11:48 ALT 23 U/L (0-41) 12/31/21 11:48 Alkaline Phosphatase 104 U/L (40-130) 12/31/21 11:48 Total Protein 7.6 g/dL (6.6-8.7) 12/31/21 11:48 Albumin 4.7 g/dL (3.5-5.2) 12/31/21 11:48 Globulin 2.9 g/dL (1.3-4.6) 12/31/21 11:48 Urine Color Brown (Yellow) 12/31/21 09:00 Urine Appearance Cloudy (CLEAR) 12/31/21 09:00 Urine pH 5 (5-7) 12/31/21 09:00 Ur Specific [place] 1.020 (1.005-1.030) 12/31/21 09:00 Urine Protein 1+ (Negative) H 12/31/21 09:00 Urine Glucose (UA) Norm (Normal) 12/31/21 09:00 Urine Ketones Negative (Negative) 12/31/21 09:00 Urine Blood 3+ (Negative) H 12/31/21 09:00 Urine Nitrate Negative (Negative) 12/31/21 09:00 Urine Bilirubin Neg (Negative) 12/31/21 09:00 Urine Urobilinogen Norm mg/dL (Negative) 12/31/21 09:00 Ur Leukocyte Esterase Negative (Negative) 12/31/21 09:00 Urine RBC Too numerous to cnt /hpf (0-2) H 12/31/21 09:00 Urine WBC 0-4 /hpf (0-5) H 12/31/21 09:00 Ur Squamous Epith Cells 0-4 /hpf (0-5) H 12/31/21 09:00 Calcium Oxalate Crystal Rare /hpf 12/31/21 09:00 Amorphous Sediment Not Reportable 12/31/21 09:00 Urine Bacteria None /hpf (NONE) 12/31/21 09:00 Discharge Plan Discharge Patient Disposition: Home Clinical Impression: Hematuria Qualifiers: Hematuria type: unspecified type Qualified Code(s): R31.9 - Hematuria, unspecified Condition: Stable Prescriptions: No Action testosterone cypionate 200 mg/mL oil 100 mg SUBCUT .Every 2 weeks multivitamin Tablet 1 tab PO DAILY cholecalciferol (vitamin D3) 50 mcg (2,000 unit) tablet 2,000 unit PO DAILY Qty: 30 3RF lisinopril 10 mg tablet 10 mg PO DAILY hydroxychloroquine [Plaquenil] 200 mg tablet 200 mg PO DIRECTED Rx Instructions: Take one tablet daily for 7 days and if no side effects, increase to twice per day haloperidol 5 mg tablet 2.5 mg PO BID PRN (Reason: anxiety/agitation) Qty: 30 3RF Rx Instructions: Take half tablet twice per day as needed for anxiety/agitation bupropion HCl [Wellbutrin XL] 150 mg tablet extended release 24 hr 150 mg PO DAILY Qty: 30 6RF Rx Instructions: Take one tablet daily chlorpheniramine maleate [ChlorTabs] 4 mg tablet 4 mg PO Q6H PRN (Reason: Allergy Symptoms) Qty: 60 1RF Discharge Orders: Discharge ED (Routine); Ordered 12/31/21 Ordered By: Carlos Wilkins Referrals: Ely Mejia DO [Primary Care Provider] - Discharge Diet: Regular Discharge Activity: Increase activity as tolerated Patient Instructions: Hematuria (ED) Activity Restrictions/Additional Instructions: Follow-up with medical provider as directed. Case management should be contacting you in the next several days set up an appointment with Dr. Barajas the urologist for follow-up on blood in the urine. Continue taking all home medications as previously prescribed. Return to the ER or your medical provider if condition worsens. Please read and understand discharge instructions. Thank you for choosing [facility] for your healthcare needs today. Please realize this is an emergency room and that we are providing you with a medical screening exam and this may not be complete and all inclusive of all the testing and or work up that you may need to determine your ailment or severity of your illness. It is very important that you follow up as instructed or that you return to the Emergency Department should you have concerns or if your condition changes or worsens in any way. Coding Level of Care Code ED Tire Installer for Lisseth Fwagnes Exam Comprehensive
[2021-12-31 11:37] VITALS: BP 116/75; PULSE 70; RESP 16; O2SAT 97
[2021-12-31 12:05] LABS: Basophils # 0.1 10^3/uL (0.0-0.1); Basophils % 1.3 %; Eosinophils # 0.6 10^3/uL (0.0-0.8); Eosinophils % 6.4 %; Hematocrit 46.4 % (42.0-52.0); Hemoglobin 15.7 g/dL (11.7-16.6); Lymphocytes # 2.6 10^3/uL (0.8-4.8); Lymphocytes % 30.2 %; Mean Corpuscular HGB Conc 33.8 g/dL (30.0-36.0); Mean Corpuscular Hemoglobin 31.7 pg (28.0-34.0); Mean Corpuscular Volume 93.5 fl (80-94); Mean Platelet Volume 9.1 fL (7.4-10.4); Monocytes # 0.5 10^3/uL (0.2-0.9); Monocytes % 5.8 %; Neutrophils # 4.89 10^3/uL (1.8-7.7); Nucleated Red Blood Cells % 0 %; Platelet Count 251 10^3/cmm (130-400); Red Blood Count 4.96 10^6/uL (4.1-5.3); Red Cell Distribution Width 11.8 % (12.1-15.1); White Blood Count 8.7 10^3/uL (4.0-10.0)
[2021-12-31 12:32] LABS: Alanine Aminotransferase 23 U/L (0-41); Albumin Level 4.7 g/dL (3.5-5.2); Alkaline Phosphatase 104 U/L (40-130); Anion Gap 12.2 (5-19); Aspartate Amino Transferase 30 U/L (0-40); Blood Urea Nitrogen 10 mg/dL (6-20); Calcium 9.1 mg/dL (8.5-10.5); Carbon Dioxide 28 mmol/L (22-29); Chloride 103 mmol/L (98-107); Globulin 2.9 g/dL (1.3-4.6); Glomerular Filtration Rate 89.7 mL/min (90-130); Glucose 95 mg/dL (65-115); Osmolality Calculated 287 mOsm/kg (285-295); Potassium 4.2 mmol/L (3.5-5.1); Sodium 139 mmol/L (136-145); Total Bilirubin 0.9 mg/dL (0.15-1.2); Total Protein 7.6 g/dL (6.6-8.7)
--- NOTE | 2022-01-01 12:05 | DCPLANNER ---
Addendum entered by Patrica Dunaway 01/16/22 08:35: Patient had a follow up appointment with urology - patient did attend appointment. Addendum entered by Patrica Dunaway 01/02/22 09:20: Patient has a follow up appointment scheduled for Wednesday, January 12, 2022 at 10:45 with urology. Clinic will call patient with appointment information. Original Note: movie theater manager had message to schedule a follow up appointment for patient with urology. movie theater manager sent patients information to the front office staff at urology. Patients information will be printed and reviewed. Clinic will call patient with appointment information.
== END 2021-12-31 13:09 | disposition home or self-care (01) ==
PROVIDERS: Emergency Medicine; Emergency Provider Physician Assistant; PCP Family Medicine
DX: R31.9 Hematuria, unspecified (principal)
CPT/HCPCS: 36415; 80053; 81001; 85025; 87086; 99283

== ENCOUNTER 2022-01-07 22:53 | Observation (INO) | payer MEDICARE, MEDICAID, SELFPAY ==
[2021-07-01 15:36] VITALS: BP 120/77; BMI 30.7
[2022-01-07 23:47] VITALS: BP 137/75; PULSE 79; RESP 16; TEMP 36.6; O2SAT 98; BMI 27.3
[2022-01-08] VITALS (28 sets, daily range): BP systolic 111–164; BP diastolic 63–88; PULSE 59–113; RESP 16–20; TEMP 36.2–37; O2SAT 92–98; BMI 30.4
--- NOTE | 2022-01-08 | SCC_ITS ---
Procedure done: 1. Cystoscopy, RIGHT retrograde ureteropyelogram 2. Right: Ureteroscopy, stone manipulation/removal, stent 24.5 seconds of fluoroscopic guidance, for a cumulative dose of 6.4 mGy, was provided to Dr. Barajas by the radiology department. C-arm images of the abdomen were saved for the patient's permanent record. [facility]
[2022-01-08 02:10] LABS: Basophils # 0.1 10^3/uL (0.0-0.1); Basophils % 0.8 %; Eosinophils # 0.5 10^3/uL (0.0-0.8); Eosinophils % 4.4 %; Hematocrit 46.1 % (42.0-52.0); Hemoglobin 15.4 g/dL (11.7-16.6); Lymphocytes # 1.8 10^3/uL (0.8-4.8); Lymphocytes % 15.7 %; Mean Corpuscular HGB Conc 33.4 g/dL (30.0-36.0); Mean Corpuscular Volume 92.8 fl (80-94); Mean Platelet Volume 9.6 fL (7.4-10.4); Monocytes # 0.8 10^3/uL (0.2-0.9); Monocytes % 6.9 %; Neutrophils # 8.31 10^3/uL (1.8-7.7); Neutrophils % 71.8 %; Nucleated Red Blood Cells % 0 %; Platelet Count 238 10^3/cmm (130-400); Red Blood Count 4.97 10^6/uL (4.1-5.3); Red Cell Distribution Width 11.5 % (12.1-15.1); White Blood Count 11.6 10^3/uL (4.0-10.0)
[2022-01-08 02:13] LABS: Add Urine Microscopic? YES; Bilirubin Urine 1+ (Negative); Blood Urine 3+ (Negative); Glucose Urine UA Norm (Normal); Ketones Urine 1+ (Negative); Leukocyte Esterase Urine 1+ (Negative); Nitrate Urine Positive (Negative); Protein Urine 3+ (Negative); Urine Appearance Cloudy (CLEAR); Urine Color Red (Yellow); Urobilinogen Urine 1 mg/dL (Negative); pH Urine 5 (5-7)
[2022-01-08 02:14] LABS: Add Urine Culture? Yes; Amorphous Sediment Urine 1+ /hpf; Bacteria Urine 2+ /hpf; Mucus Urine 1+ /hpf; RBC Urine TOO NUMEROUS TO CNT /hpf (0-2); Squamous Epithelial Cell Urine 0-4 /hpf (0-5)
[2022-01-08 02:21] LABS: Alanine Aminotransferase 11 U/L (0-41); Albumin Level 4.2 g/dL (3.5-5.2); Alkaline Phosphatase 116 U/L (40-130); Anion Gap 16.3 (5-19); Aspartate Amino Transferase 27 U/L (0-40); Blood Urea Nitrogen 12 mg/dL (6-20); Calcium 9.8 mg/dL (8.5-10.5); Carbon Dioxide 25 mmol/L (22-29); Chloride 102 mmol/L (98-107); Globulin 2.9 g/dL (1.3-4.6); Glomerular Filtration Rate 64.4 mL/min (90-130); Glucose 133 mg/dL (65-115); Lipase 91 U/L (13-60); Osmolality Calculated 290 mOsm/kg (285-295); Potassium 4.3 mmol/L (3.5-5.1); Sodium 139 mmol/L (136-145); Total Bilirubin 0.5 mg/dL (0.15-1.2); Total Protein 7.1 g/dL (6.6-8.7)
--- NOTE | 2022-01-08 02:42 | ED_ITS ---
HPI - Abdominal Pain General: Chief Complaint: Abdominal Pain Stated Complaint: side/abd pain Time Seen by Provider: 01/08/22 02:42 History of Present Illness: Mr. Mandujano is a 51-year-old transgender individual female to male who presents to the emergency department due to abdominal pain and hematuria. Onset of symptoms has been a number of days initially with right flank pain and associated hematuria. Was initially evaluated on the seventh and supposed to have outpatient follow-up with urology however her symptoms have worsened. Now has associated nausea and vomiting and fever chills. Pain is moderate to severe and worse with certain positions. Still having hematuria. Denies history of kidney stones or similar episodes in the past. No other specific changes in health, exacerbating, or alleviating factors identified. Onset (ago): day(s) Pain Consistency: constant Severity: severe Quality: stabbing and aching Migration to: no migration Associated Symptoms: Reports chills, nausea and vomiting Review of Systems General: Reports: 10 or more systems reviewed and unremarkable except in HPI and below Const: Reports: chills GI: Reports: nausea and vomiting PFSH ED PFSH: Medical History Acute gastritis without bleeding Biliary dyskinesia Cholelithiasis Chronic joint pain Chronic post-traumatic stress disorder Dissociative identity disorder Elevated hemoglobin Elevated testosterone level Enrolled in chronic care management Ffrfst-fh-[id number] transgender person Generalized anxiety disorder High risk medication use Hypothyroidism Immunization counseling Inflammatory arthritis Major depressive disorder, recurrent episode with anxious distress MÉNDEZ (nonalcoholic steatohepatitis) Obstructive sleep apnea DAVONTE on CPAP Psychiatric care Psychiatric care Reactive arthritis Teresa's syndrome Urinary tract infection Vitamin D deficiency Surgical History H/O bilateral breast reduction surgery H/O rhinoplasty H/O thyroidectomy H/O: hysterectomy Family History Other Cancer Diabetes Denies family history of Anesthesia complication Bleeding disorder Social History Smoking and tobacco status: never smoked Alcohol intake: never Adopted: No Caregiver/support person: No Lives independently: Yes Household members: none Housing: House Marital status: Single Number of children: 0 Number of grandchildren: 0 Highest education level completed: Master's Degree Education level details: in 5 weeks will have Current occupational status: student and disabled Pets and animals: Yes (service dog and cat) Pets & animals: cat(s) and dog(s) History of recent travel: Yes Out of state: Yes Leisure activites: music, reading and other Leisure activities details: woodwork Current gender identity: Trans [id number] Leticia/Catholic: Wicca Special leticia needs: No Agree to transfusion: Yes Financial difficulty paying for basics: Somewhat Hard Physical Exam Const: COMMON NORMALS: alert GENERAL APPEARANCE: cooperative and well developed HENMT: COMMON NORMALS: normocephalic and atraumatic HEAD & SCALP: normocephalic and atraumatic Eye: COMMON NORMALS: conjunctivae normal CONJUNCTIVA: Yes conjunctivae normal SCLERA: sclerae normal Neck/C-Spine: COMMON NORMALS: supple GENERAL: Yes trachea midline Resp: COMMON NORMALS: clear to auscultation bilaterally EFFORT & INSPECTION: Yes able to speak in complete sentences AUSCULTATION: clear to auscultation bilaterally Cardio: COMMON NORMALS: regular rate and regular rhythm RATE: regular rate RHYTHM: regular rhythm GI: COMMON NORMALS: Soft to palpation PALPATION: Yes Soft to palpation, Yes Tenderness to palpation present (GI), Yes Guarding due to palpation present (GI) and No Rigid due to palpation Extremity: GENERAL: Yes normal exam except as noted and No edema Neuro: COMMON NORMALS: moves all extremities SENSORIUM/ORIENTATION: Yes alert and No Orientation impaired Psych: COMMON NORMALS: mental status grossly normal and Normal thought process present THOUGHT PROCESS: Normal thought process present Course ED course: - Patient was seen and evaluated by me at bedside - Patient placed on cardiac monitors, IV access obtained - Initial evaluation notable for exam as above - Labs and xrays personally interpreted by me - Fluids, analgesia, and antiemetic given - Labs notable for mild leukocytosis, normal hemoglobin. Renal function is preserved. Urinalysis not concerning for infection with positive nitrite, 1+ leuk esterase, 2+ bacteria, and 5-10 whites in addition to continued packed red cells. - Imaging notable for obstructing kidney stone in the distal ureter - Upon serial reexamination after treatment the patient was sent improved. -Discussed case with urology on-call Dr. Barajas who recommended admission for operative management given evidence of infection and obstructing kidney stone. Cefepime ordered as patient has penicillin allergy. - Based on patient history, evaluation, and testing as interpreted the most likely cause of the patient's condition is infected kidney stone - The results of ED evaluation were discussed with the patient including plan for admission due to requirement for level of care not available if discharged to prevent significant worsening/deterioration. - Admitting service was contacted and Dr Manzanares with the hospital service agreed to admit the patient - Patient was admitted without further deterioration or significant events. Note: Click bubbles or prepopulated driver in note writing are used for assistance with data collection and billing and are inherently more limited than narrative and other text portions of this note. Please use narrative for additional clinical history and defer to narrative/free test for any case of contradictory information. If information appears in only free text or click bubble it should be considered present or absent as reported. Please contact note inspector automatic typewriter for clarifications of clinical information or contradictory information. MDM is a brief summary, contradictory or erroneous seeming information should be clarified and full note should be reviewed. Vital Signs: Vital signs: Vital Signs Temperature 97.9 F 01/07/22 23:47 Pulse Rate 76 01/08/22 05:15 Respiratory Rate 18 01/08/22 05:15 Blood Pressure 123/78 01/08/22 05:15 Pulse Oximetry 96 01/08/22 05:15 Oxygen Delivery Me thod 01/08/22 03:30 MDM - Abdominal Pain Medical Decision Making 51-year-old transgender individual who identifies as male presenting to the emergency department due to abdominal pain associated with infectious symptoms in the context of hematuria for approximately 1 week. Patient found to have likely infected obstructing ureteral stone. Discussed with urology service who was consulted. Patient admitted to hospital service for antibiotics and definitive management. Medical Records I reviewed the patient's medical records. Lab Data I reviewed the patient's lab results. : 01/07/22 01:54 01/07/22 01:54 Labs/Radiology: Radiology Impressions Abdomen/Pelvis CT 01/08/22 02:51 IMPRESSION: 1. Obstructing distal right ureteral calculus. 2. Bilateral intrarenal punctate calculi. 3. Rectal wall thickening. 4. Vague nodular densities lower lungs, significance uncertain.For patients at low risk (minimal or absent history of smoking and of other known risk factors), no routine follow-up is indicated. For patients at high risk (history of smoking or of other known risk factors), consider optional CT Chest at 12 months. (Reference: Ld) 5. Cyst lower right hepatic lobe. No follow-up is required. 6. Nodular contour of the anterior liver. Correlate for any documented hepatic disorder. 7. Splenomegaly. REFERENCES: Ld Glez et al. Guidelines for Management of Incidental Pulmonary Nodules Detected on CT Images: From the Fleischner Society 2017. Radiology. 2017;284(1):228-243. Laboratory Results WBC 11.6 10^3/uL (4.0-10.0) H 01/07/22 01:54 RBC 4.97 10^6/uL (4.1-5.3) 01/07/22 01:54 Hgb 15.4 g/dL (11.7-16.6) 01/07/22 01:54 Hct 46.1 % (42.0-52.0) 01/07/22 01:54 MCV 92.8 fl (80-94) 01/07/22 01:54 MCH 31.0 pg (28.0-34.0) 01/07/22 01:54 MCHC 33.4 g/dL (30.0-36.0) 01/07/22 01:54 RDW 11.5 % (12.1-15.1) L 01/07/22 01:54 Plt Count 238 10^3/cmm (130-400) 01/07/22 01:54 MPV 9.6 fL (7.4-10.4) 01/07/22 01:54 Neut % (Auto) 71.8 % 01/07/22 01:54 Lymph % (Auto) 15.7 % 01/07/22 01:54 Norton % (Auto) 6.9 % 01/07/22 01:54 Eos % (Auto) 4.4 % 01/07/22 01:54 Baso % (Auto) 0.8 % 01/07/22 01:54 Neut # (Auto) 8.31 10^3/uL (1.8-7.7) H 01/07/22 01:54 Lymph # (Auto) 1.8 10^3/uL (0.8-4.8) 01/07/22 01:54 Norton # (Auto) 0.8 10^3/uL (0.2-0.9) 01/07/22 01:54 Eos # (Auto) 0.5 10^3/uL (0.0-0.8) 01/07/22 01:54 Baso # (Auto) 0.1 10^3/uL (0.0-0.1) 01/07/22 01:54 Nucleated RBC % (auto) 0 % 01/07/22 01:54 Nucleated RBCs # 0.0 /100WBC 01/07/22 01:54 Sodium 139 mmol/L (136-145) 01/07/22 01:54 Potassium 4.3 mmol/L (3.5-5.1) 01/07/22 01:54 Chloride 102 mmol/L (98-107) 01/07/22 01:54 Carbon Dioxide 25 mmol/L (22-29) 01/07/22 01:54 Anion Gap 16.3 (5-19) 01/07/22 01:54 BUN 12 mg/dL (6-20) 01/07/22 01:54 Creatinine 1.2 mg/dL (0.7-1.2) 01/07/22 01:54 GFR Calculation 64.4 mL/min (90-130) L 01/07/22 01:54 Glucose 133 mg/dL (65-115) H 01/07/22 01:54 Calculated Osmolality 290 mOsm/kg (285-295) 01/07/22 01:54 Calcium 9.8 mg/dL (8.5-10.5) 01/07/22 01:54 Total Bilirubin 0.5 mg/dL (0.15-1.2) 01/07/22 01:54 AST 27 U/L (0-40) 01/07/22 01:54 ALT 11 U/L (0-41) 01/07/22 01:54 Alkaline Phosphatase 116 U/L (40-130) 01/07/22 01:54 Total Protein 7.1 g/dL (6.6-8.7) 01/07/22 01:54 Albumin 4.2 g/dL (3.5-5.2) 01/07/22 01:54 Globulin 2.9 g/dL (1.3-4.6) 01/07/22 01:54 Lipase 91 U/L (13-60) H 01/07/22 01:54 Urine Color Red (Yellow) 01/08/22 01:54 Urine Appearance Cloudy (CLEAR) 01/08/22 01:54 Urine pH 5 (5-7) 01/08/22 01:54 Ur Specific [place] 1.030 (1.005-1.030) 01/08/22 01:54 Urine Protein 3+ (Negative) H 01/08/22 01:54 Urine Glucose (UA) Norm (Normal) 01/08/22 01:54 Urine Ketones 1+ (Negative) H 01/08/22 01:54 Urine Blood 3+ (Negative) H 01/08/22 01:54 Urine Nitrate Positive (Negative) H 01/08/22 01:54 Urine Bilirubin 1+ (Negative) H 01/08/22 01:54 Urine Urobilinogen 1 mg/dL (Negative) H 01/08/22 01:54 Ur Leukocyte Esterase 1+ (Negative) H 01/08/22 01:54 Urine RBC Too numerous to cnt /hpf (0-2) H 01/08/22 01:54 Urine WBC 5-10 /hpf (0-5) H 01/08/22 01:54 Ur Squamous Epith Cells 0-4 /hpf (0-5) H 01/08/22 01:54 Amorphous Sediment 1+ /hpf 01/08/22 01:54 Urine Bacteria 2+ /hpf (NONE) H 01/08/22 01:54 Urine Mucus 1+ /hpf 01/08/22 01:54 Discharge Plan Discharge Patient Disposition: Placed in Observation Clinical Impression: Acute UTI, Ureterolithiasis, Nausea and vomiting Coding Level of Care Code ED Scrum Project Manager for Chg Fwd Exam Comprehensive
--- NOTE | 2022-01-08 02:51 | CTR_ITS ---
PROCEDURE INFORMATION: Exam: CT Abdomen And Pelvis Without Contrast Exam date and time: 01/08/2022 2:59 AM Age: 51 years old Clinical indication: Nausea and vomiting; Abdominal pain; Right; Prior surgery; Surgery type: Gb. Breast reduction. Thyroidectomy. Hysterectomy. Patient HX: C/O RT flank pain with hematuria. ; Additional info: R flank pain, hematuria TECHNIQUE: Imaging protocol: Computed tomography of the abdomen and pelvis without contrast. Radiation optimization: All CT scans at this facility use at least one of these dose optimization techniques: automated exposure control; mA and/or kV adjustment per patient size (includes targeted exams where dose is matched to clinical indication); or iterative reconstruction. COMPARISON: CT abdomen pelvis w con* [id number] 06/04/2021 1:27 PM RADIATION DOSE METRICS: Total DLP (mGy-cm): 681.32 FINDINGS: Lungs: Vague subpleural and parenchymal nodules or nodular densities in the lower lungs. Small in size largest measures 0.4 cm. Liver: Slight lobular contour of the liver anteriorly. Low-attenuation lesion of the lower right hepatic lobe suspicious for cyst measures 1.2 cm. Gallbladder and bile ducts: Postoperative cholecystectomy. Pancreas: Normal. No ductal dilation. Spleen: Splenomegaly longitudinally measures 13.0 cm. Adrenal glands: 0.9 cm hypodense nodule left adrenal gland most probably benign adenoma. Kidneys and ureters: Prominent enlargement of the right kidney with perinephric stranding. Moderate pelvicaliectasis and right-sided ureterectasis with obstructing calculus in the distal right ureter near the ureterovesical junction measuring 0.47 cm. Punctate nonobstructive left intrarenal calculus. Punctate right intrarenal calculus. Stomach and bowel: Elongated rectal wall thickening. Appendix: No evidence of appendicitis. Intraperitoneal space: Unremarkable. No free air. No significant fluid collection. Vasculature: Trace calcification abdominal aorta. Lymph nodes: Unremarkable. No enlarged lymph nodes. Urinary bladder: Unremarkable as visualized. Reproductive: Postoperative hysterectomy. Bones/joints: Nonspecific focus of sclerosis L1. Soft tissues: Unremarkable. CT/CT kidney stone [id number] IMPRESSION: 1. Obstructing distal right ureteral calculus. 2. Bilateral intrarenal punctate calculi. 3. Rectal wall thickening. 4. Vague nodular densities lower lungs, significance uncertain.For patients at low risk (minimal or absent history of smoking and of other known risk factors), no routine follow-up is indicated. For patients at high risk (history of smoking or of other known risk factors), consider optional CT Chest at 12 months. (Reference: Ld) 5. Cyst lower right hepatic lobe. No follow-up is required. 6. Nodular contour of the anterior liver. Correlate for any documented hepatic disorder. 7. Splenomegaly. REFERENCES: Ld Glez, et al. Guidelines for Management of Incidental Pulmonary Nodules Detected on CT Images: From the Fleischner Society 2017. Radiology. 2017;284(1):228-243.
[2022-01-08] MEDS: ondansetron 2 mg/ML SDV 2 mL 4 MG IVP (03:21)
[2022-01-08] MEDS: morphine 4 mg/mL SDV 1 mL IVP (03:22)
[2022-01-08] MEDS: lactated ringers 1,000 ML 999 ML IV (03:23)
[2022-01-08] MEDS: tamsulosin 0.4 mg Capsule PO (03:34)
--- NOTE | 2022-01-08 05:19 | P.HP_ITS ---
Providers/Chief Complaint Admitting Physician: Karl Primary Care Provider: Ely Mejia DO Chief Complaint: side/abd pain History of Present Illness Nasim Samano is a 51 year old transgender female to male who presented this hospital stay with complaints of right renal colic, gross hematuria subjective fever and chills. About a week ago was seen in the emergency de partment for some blood in the urine but otherwise was asymptomatic. In the interim developed right flank pain suspicious for renal colic. In addition has had the onset of nausea and vomiting. Work-up: * Urinalysis: Positive nitrite, 5-10 white blood cells. (Showed no evidence of pyuria last visit) * WBC: 11.6 * Creatinine: 1.2 up from baseline of approximately 0.8 * Normal liver functions * CT scan: Approximately 5 mm right distal ureteral stone with moderate obstructive changes. No additional stones seen. * Physical exam showed no signs of sepsis. Pain has been aggressively treated in the emergency department with partial benefit. Based on degree of symptoms as well as new onset UTI and presence of obstruction, admission was recommended for further evaluation and treatment. After reviewing the films, labs, and interviewing and examining the patient I have recommended urgent intervention for the stone due to the obstruction and infection. If hemodynamics remain stable we will plan on going after the stone. If there is a progression of infectious concerns we will simply place stent. Recommended procedure: 1. Cystoscopy with right retrograde ureteropyelogram 2. Right: Ureteroscopy, laser, stent. Discussed potential staged procedure if difficulty in accessing upper tract. Informed consent was obtained for the above procedures. Is likely that this will be performed around 11:30 to noon. Review of Systems Const: Reports: fever(s) (Subjective) and chills Eyes: Denies: change in vision or eye redness ENMT: Denies: hoarseness Card: Denies: chest pain or palpitations Resp: Denies: dyspnea or productive cough GI: Reports: abdominal pain, nausea and vomiting : Reports: flank pain; Denies: difficulty urinating Musc: Denies: joint redness or joint warmth Skin/Breast: Denies: sores Neuro: Denies: confusion or Slurred speech present Psych: Reports: anxiety and depression Endo: Denies: flushing Riky/Lymph: Denies: easy bruising or easy bleeding All/Imm: Denies: urticaria or acute wheezing Medications/Allergies Home Medications Medication Instructions Recorded Confirmed Last Taken Type testosterone cypionate 200 mg/mL 100 mg SUBCUT .Every 2 weeks 05/08/20 01/05/22 02/14/21 History intramuscular oil cholecalciferol (vitamin D3) 50 2,000 unit PO DAILY #30 tabs 10/29/20 01/05/22 08/04/21 Rx mcg (2,000 unit) tablet chlorpheniramine maleate 4 mg 4 mg PO Q6H PRN Allergy Symptoms 02/25/21 01/05/22 08/04/21 Rx tablet (ChlorTabs) #60 tabs lisinopril 10 mg tablet 10 mg PO DAILY 05/13/21 01/05/22 08/04/21 History multivitamin 1 tab PO DAILY 06/10/21 01/05/22 08/04/21 History hydroxychloroquine 200 mg tablet 200 mg PO DIRECTED 07/16/21 01/05/22 08/04/21 History (Plaquenil) haloperidol 5 mg tablet 2.5 mg PO BID PRN 08/20/21 01/05/22 Unknown Rx anxiety/agitation #30 tabs bupropion HCl 150 mg 24 hr tablet, 150 mg PO DAILY #30 tabs 10/20/21 01/05/22 Unknown Rx extended release (Wellbutrin XL) Allergies Allergy/AdvReac Type Severity Reaction Status Date / Time fenofibrate Allergy Intermediate blisters Verified 01/05/22 09:11 Penicillins Allergy Unknown swelling Verified 01/05/22 09:11 prazosin Allergy Unknown Unknown Verified 01/05/22 09:11 diazepam [From Valium] Allergy Unknown Verified 01/05/22 09:11 sulfasalazine AdvReac Mild nausea Verified 01/05/22 09:11 vomiting sertraline [From Zoloft] AdvReac panic Verified 01/05/22 09:11 attacks PFSH Acute PFSH: Medical History Acute gastritis without bleeding Biliary dyskinesia Cholelithiasis Chronic joint pain Chronic post-traumatic stress disorder Dissociative identity disorder Elevated hemoglobin Elevated testosterone level Enrolled in chronic care management [id number] transgender person Generalized anxiety disorder High risk medication use Hypothyroidism Immunization counseling Inflammatory arthritis Major depressive disorder, recurrent episode with anxious distress MÉNDEZ (nonalcoholic steatohepatitis) Obstructive sleep apnea DAVONTE on CPAP Psychiatric care Psychiatric care Reactive arthritis Teresa's syndrome Urinary tract infection Vitamin D deficiency Surgical History H/O bilateral breast reduction surgery H/O rhinoplasty H/O thyroidectomy H/O: hysterectomy Family History Other Cancer Diabetes Denies family history of Anesthesia complication Bleeding disorder Social History Smoking and tobacco status: never smoked Alcohol intake: never Adopted: No Caregiver/support person: No Lives independently: Yes Household members: none Housing: House Marital status: Single Number of children: 0 Number of grandchildren: 0 Highest education level completed: Master's Degree Education level details: in 5 weeks will have Current occupational status: student and disabled Pets and animals: Yes (service dog and cat) Pets & animals: cat(s) and dog(s) History of recent travel: Yes Out of state: Yes Leisure activites: music, reading and other Leisure activities details: wo odwork Current gender identity: Trans [id number] Leticia/Mormon: Wicca Special leticia needs: No Agree to transfusion: Yes Financial difficulty paying for basics: Somewhat Hard Vitals/I&O/Wt Last Vital Signs Temp 97.9 F 01/07/22 23:47 Pulse 76 01/08/22 05:15 Resp 18 01/08/22 05:15 BP 123/78 01/08/22 05:15 Pulse Ox 96 01/08/22 05:15 O2 Del Method 01/08/22 03:30 Weight last 48 hrs Weight 180 lb Physical Exam Const: COMMON NORMALS: no acute distress, alert and well nourished GENERAL APPEARANCE: well kempt and well developed ORIENTATION/CONSCIOUSNESS: not confused HENMT: COMMON NORMALS: normocephalic HEAD & SCALP: normal to inspection and normocephalic Eye: COMMON NORMALS: conjunctivae normal and no scleral icterus CONJUNCTIVA: Yes conjunctivae normal Neck/C-Spine: GENERAL: Yes normal visual inspection Lymph: LYMPHATIC: no lymphadenopathy noted and no lymphedema noted Chest: OTHER: Normal chest movements Resp: COMMON NORMALS: normal respiratory effort EFFORT & INSPECTION: Yes able to speak in complete sentences, No labored and No Actively coughing Cardio: COMMON NORMALS: regular rate and regular rhythm GI: OTHER: Abdominal tenderness on the right : OTHER: Bladder nondistended Back/Pelvis: OTHER: Right CVA tenderness Extremity: COMMON NORMALS: no clubbing, cyanosis or edema Neuro: COMMON NORMALS: no focal motor deficits SENSORIUM/ORIENTATION: Yes alert Psych: COMMON NORMALS: mental status grossly normal APPEARANCE: Yes grossly normal and Yes well kempt ATTITUDE: Yes calm and Yes engaged Skin: COMMON NORMALS: no rashes or lesions noted and no jaundice GENERAL SKIN EXAM: no rashes or lesions noted Data : 01/07/22 01:54 01/07/22 01:54 A&P Assessment and plan (1) Ureterolithiasis: Right distal ureteral stone with moderate to severe obstructive changes In face of UTI have recommended urgent surgical intervention. We will plan to go after the stone unless there is significant infectious progression with hemodynamic instability etc. All of this was explained in detail to the patient. Expressed contentment with explanations and understanding. Status: Acute (2) Acute UTI: No evidence of sepsis Status: Acute (3) Ywyhkf-qo-ghli transgender person: Status: Acute (4) DM II (diabetes mellitus, type II), controlled: Status: Acute Plan Tentative plans for urologic intervention today as operative time available. Attestations Medical Necessity Statement*: Refractory renal colic secondary to right distal ureteral stone with obstruction and now new evidence of UTI without sepsis. Coding Level of Care Code Acute Lens Inserter for [facility] Fwd Diagnoses Ureterolithiasis N20.1 Acute UTI N39.0 Twurem-qc-ovas transgender person Z78.9 DM II (diabetes mellitus, type II), controlled E11.9
[2022-01-08] MEDS: cefepime 2,000 MG in sodium chloride 0.9% (plus) 50 ML 100 MG IV (05:47)
--- NOTE | 2022-01-08 06:24 | P.HP_ITS ---
Providers/Chief Complaint Primary Care Provider: Ely Mejia DO Chief Complaint: side/abd pain History of Present Illness Nasim Samano is a 51 year old male with a past medical history of Lopez, hypothyroidism, generalized anxiety disorder, noninsulin-dependent type 2 diabetes mellitus, who presents [facility] due to right flank pain, dysuria, hematuria. Patient denies any for the last few days he has had right flank pain, dysuria, hematuria, progressing to nausea, vomiting, no fevers he has never had a kidney stone, currently having severe right flank pain, his nausea is under control, no fevers, no chills, no shortness of breath, no chest pain Review of Systems Const: Denies: fever(s) Card: Denies: chest pain Resp: Denies: dyspnea GI: Denies: abdominal pain : Reports: flank pain and dysuria Medications/Allergies Home Medications Medication Instructions Recorded Confirmed Last Taken Type testosterone cypionate 200 mg/mL 100 mg SUBCUT .Every 2 weeks 05/08/20 01/05/22 02/14/21 History intramuscular oil cholecalciferol (vitamin D3) 50 2,000 unit PO DAILY #30 tabs 10/29/20 01/05/22 08/04/21 Rx mcg (2,000 unit) tablet chlorpheniramine maleate 4 mg 4 mg PO Q6H PRN Allergy Symptoms 02/25/21 01/05/22 08/04/21 Rx tablet (ChlorTabs) #60 tabs lisinopril 10 mg tablet 10 mg PO DAILY 05/13/21 01/05/22 08/04/21 History multivitamin 1 tab PO DAILY 06/10/21 01/05/22 08/04/21 History hydroxychloroquine 200 mg tablet 200 mg PO DIRECTED 07/16/21 01/05/22 08/04/21 History (Plaquenil) haloperidol 5 mg tablet 2.5 mg PO BID PRN 08/20/21 01/05/22 Unknown Rx anxiety/agitation #30 tabs bupropion HCl 150 mg 24 hr tablet, 150 mg PO DAILY #30 tabs 10/20/21 01/05/22 Unknown Rx extended release (Wellbutrin XL) Allergies Allergy/AdvReac Type Severity Reaction Status Date / Time fenofibrate Allergy Intermediate blisters Verified 01/05/22 09:11 Penicillins Allergy Unknown swelling Verified 01/05/22 09:11 prazosin Allergy Unknown Unknown Verified 01/05/22 09:11 diazepam [From Valium] Allergy Unknown Verified 01/05/22 09:11 sulfasalazine AdvReac Mild nausea Verified 01/05/22 09:11 vomiting sertraline [From Zoloft] AdvReac panic Verified 01/05/22 09:11 attacks PFSH Acute PFSH: Medical History Acute gastritis without bleeding Biliary dyskinesia Cholelithiasis Chronic joint pain Chronic post-traumatic stress disorder Dissociative identity disorder Elevated hemoglobin Elevated testosterone level Enrolled in chronic care management [id number] transgender person Generalized anxiety disorder High risk medication use Hypothyroidism Immunization counseling Inflammatory arthritis Major depressive disorder, recurrent episode with anxious distress LOPEZ (nonalcoholic steatohepatitis) Obstructive sleep apnea DAVONTE on CPAP Psychiatric care Psychiatric care Reactive arthritis Teresa's syndrome Urinary tract infection Vitamin D deficiency Surgical History H/O bilateral breast reduction surgery H/O rhinoplasty H/O thyroidectomy H/O: hysterectomy Family History Other Cancer Diabetes Denies family history of Anesthesia complication Bleeding disorder Social History Smoking and tobacco status: never smoked Alcohol intake: never Adopted: No Caregiver/support person: No Lives independently: Yes Household members: none Housing: House Marital status: Single Number of children: 0 Number of grandchildren: 0 Highest education level completed: Master's Degree Education level details: in 5 weeks will have Current occupational status: student and disabled Pets and animals: Yes (service dog and cat) Pets & animals: cat(s) and dog(s) History of recent travel: Yes Out of state: Yes Leisure activites: music, reading and other Leisure activities details: woodwork Current gender identity: Trans [id number] Leticia/Lutheran: Wicca Special leticia needs: No Agree to transfusion: Yes Financial difficulty paying for basics: Somewhat Hard Vitals/I&O/Wt Last Vital Signs Temp 97.9 F 01/07/22 23:47 Pulse 76 01/08/22 05:15 Resp 18 01/08/22 05:15 BP 123/78 01/08/22 05:15 Pulse Ox 96 01/08/22 05:15 O2 Del Method 01/08/22 03:30 Weight last 48 hrs Weight 81.647 kg Physical Exam Const: COMMON NORMALS: no acute distress and patient oriented x3 HENMT: COMMON NORMALS: normocephalic HEAD & SCALP: normocephalic Eye: COMMON NORMALS: Equal, round and reactive pupils present and EOMs intact bilaterally Resp: COMMON NORMALS: normal respiratory effort, No retractions, No use of accessory muscles and clear to auscultation bilaterally AUSCULTATION: clear to auscultation bilaterally Cardio: COMMON NORMALS: no JVD, regular rate, regular rhythm, S1 normal heart sound present and S2 normal heart sound present RATE: regular rate RHYTHM: regular rhythm HEART SOUNDS: S1 normal heart sound present and S2 normal heart sound present GI: COMMON NORMALS: Normal to inspection, nondistended, normoactive bowel sounds present, Soft to palpation, non-tender, No hepatosplenomegaly present, no masses and no bruits PALPATION: Yes Soft to palpation Extremity: COMMON NORMALS: no pedal edema Neuro: COMMON NORMALS: patient oriented x3, CN's II-XII intact bilaterally and moves all extremities Psych: COMMON NORMALS: mental status grossly normal Data : 01/07/22 01:54 01/07/22 01:54 Micro: Microbiology 01/08/22 05:11 Blood Culture - Preliminary Blood SPECIMEN COLLECTED 01/08/22 05:08 Blood Culture - Preliminary Blood SPECIMEN COLLECTED A&P Assessment and plan (1) Right distal ureteral calculus: Status: Acute Plan Right distal ureteral colliculi, obstructing -N.p.o. -IV fluids -Morphine for pain control -Continue cefepime -Zofran for nausea -Urology has been consulted for surgical intervention -Full code -SCDs for DVT prophylaxis as there is plans on surgical intervention Attestations Medical Necessity Statement*: Patient requires hospitalization, outpatient with observation for nephrolithiasis Coding Level of Care Code Acute [employer] for Chg Fwd Diagnoses Right distal ureteral calculus N20.1
[2022-01-08] MEDS: morphine 4 mg/mL SDV 1 mL 2 MG IVP (07:31)
[2022-01-08 07:40] LABS: Basophils # 0.1 10^3/uL (0.0-0.1); Basophils % 0.4 %; Eosinophils % 0.2 %; Hematocrit 41.9 % (42.0-52.0); Hemoglobin 13.7 g/dL (11.7-16.6); Lymphocytes # 1.4 10^3/uL (0.8-4.8); Lymphocytes % 11.3 %; Mean Corpuscular HGB Conc 32.7 g/dL (30.0-36.0); Mean Corpuscular Hemoglobin 31.8 pg (28.0-34.0); Mean Corpuscular Volume 97.2 fl (80-94); Mean Platelet Volume 9.4 fL (7.4-10.4); Monocytes # 0.7 10^3/uL (0.2-0.9); Monocytes % 5.5 %; Neutrophils # 9.99 10^3/uL (1.8-7.7); Neutrophils % 82.3 %; Nucleated Red Blood Cells % 0 %; Platelet Count 186 10^3/cmm (130-400); Red Blood Count 4.31 10^6/uL (4.1-5.3); Red Cell Distribution Width 11.6 % (12.1-15.1); White Blood Count 12.2 10^3/uL (4.0-10.0)
[2022-01-08] MEDS: sodium chlor 0.45% +KCl 20 mEq 20 MEQ/1,000 ML BAG 150 MEQ IV ×3 (07:43→23:17)
[2022-01-08 07:49] LABS: Glucose Point of Care 117 mg/dL (70-110)
[2022-01-08 08:09] LABS: Alanine Aminotransferase 20 U/L (0-41); Albumin Level 3.7 g/dL (3.5-5.2); Alkaline Phosphatase 92 U/L (40-130); Anion Gap 12.9 (5-19); Aspartate Amino Transferase 22 U/L (0-40); Blood Urea Nitrogen 12 mg/dL (6-20); Calcium 8.6 mg/dL (8.5-10.5); Carbon Dioxide 24 mmol/L (22-29); Chloride 107 mmol/L (98-107); Globulin 2.5 g/dL (1.3-4.6); Glomerular Filtration Rate 71.1 mL/min (90-130); Glucose 136 mg/dL (65-115); Osmolality Calculated 292 mOsm/kg (285-295); Potassium 3.9 mmol/L (3.5-5.1); Sodium 140 mmol/L (136-145); Thyroid Stimulating Hormone 1.56 uIU/mL (0.27-4.20); Total Bilirubin 0.6 mg/dL (0.15-1.2); Total Protein 6.2 g/dL (6.6-8.7)
[2022-01-08 10:34] LABS: Glucose Point of Care 130 mg/dL (70-110)
[2022-01-08] MEDS: sodium chloride 0.9% 1,000 ML 30 ML IV (10:34)
--- NOTE | 2022-01-08 10:50 | ANES.PREANE2 ---
Pre-Anesthetic Assessment Height/Weight: Height 1.73 m Weight 81.647 kg Temp Pulse Resp BP Pulse Ox O2 Del Method 98.5 F 92 18 122/88 96 01/08/22 10:01/08/22 10:01/08/22 10:01/08/22 10:01/08/22 10:01/08/22 10:26 Preop Diagnosis: Biliary dyskinesia Operation Date: 01/08/22 11:30 Proposed Procedures p Cystoscopy(Not Applicable) - Augustin Barajas MD s Retrograde Pyelogram(Right) - Augustin Barajas MD s Ureteroscopy(Right) - Augustin Barajas MD s Laser Lithotripsy(Right) - Augustin Barajas MD s Ureteral Stent Placement(Right) - Augustin Barajas MD Familial anesthetic complications: None Was Beta Tee taken within 24 hours: N/A Was Clonidine taken within 24 hours: N/A Last intake: Intake Last Liquid Date 01/07/22 Last Liquid Time 19:00 Last Solid Date 01/07/22 Last Solid Time 19:00 Social Tobacco and No alcohol Exam alert, oriented x 3 and regular rate & rhythm Airway Submandibular: within normal limits Cervical ROM: within normal limits Mallampati: Class III Dentition: full Pulmonary Sleep Apnea Hepatic MÉNDEZ Metabolic Thyroid Disease [facility] [place] Rheumatoid Arthritis Neuropsych Anxiety and Depression Anesthetic Plan ASA status: 2 Anesthesia: General Medications/Allergies Home Medications Medication Instructions Recorded Confirmed Last Taken Type testosterone cypionate 200 mg/mL 100 mg SUBCUT .Every 2 weeks 05/08/20 01/08/22 12/25/21 History intramuscular oil cholecalciferol (vitamin D3) 50 2,000 unit PO DAILY #30 tabs 10/29/20 01/08/22 01/07/22 Rx mcg (2,000 unit) tablet chlorpheniramine maleate 4 mg 4 mg PO Q6H PRN Allergy Symptoms 02/25/21 01/08/22 01/07/22 Rx tablet (ChlorTabs) #60 tabs lisinopril 10 mg tablet 10 mg PO DAILY 05/13/21 01/08/22 01/07/22 History hydroxychloroquine 200 mg tablet 200 mg PO DIRECTED 07/16/21 01/08/22 01/07/22 History (Plaquenil) bupropion HCl 150 mg 24 hr tablet, 150 mg PO DAILY #30 tabs 10/20/21 01/08/22 01/07/22 Rx extended release (Wellbutrin XL) Allergies Allergy/AdvReac Type Severity Reaction Status Date / Time fenofibrate Allergy Intermediate blisters Verified 01/08/22 07:41 Penicillins Allergy Unknown swelling Verified 01/08/22 07:41 prazosin Allergy Unknown Unknown Verified 01/08/22 07:41 diazepam [From Valium] Allergy Unknown Verified 01/08/22 07:41 sulfasalazine AdvReac Mild nausea Verified 01/08/22 07:41 vomiting sertraline [From Zoloft] AdvReac panic Verified 01/08/22 07:41 attacks Current Medications Generic Name Dose Route Start Last Admin Trade Name Freq PRN Reason Stop Dose Admin Potassium Chloride/Sodium Chloride 20 meq in 1,000 mls @ 150 mls/hr 01/08/22 05:57 01/08/22 07:43 Sodium Chlor 0.45% +Kcl 20 Meq IV 150 mls/hr .Q6H40M ERFEN Administration Sodium Chloride 1,000 mls @ 30 mls/hr 01/08/22 10:15 01/08/22 10:34 Sodium Chloride 0.9% IV 01/09/22 10:14 30 mls/hr .Q24H EFREN Administration Morphine Sulfate 2 mg 01/08/22 05:57 01/08/22 07:31 Morphine 4 Mg/Ml Sdv 1 Ml IVP 2 mg Q1H PRN Administration renal colic PFSH Anesthesia Medical History Acute gastritis without bleeding Biliary dyskinesia Cholelithiasis Chronic joint pain Chronic post-traumatic stress disorder Dissociative identity disorder Elevated hemoglobin Elevated testosterone level Enrolled in chronic care management Zczonb-uk-jzgo transgender person Generalized anxiety disorder High risk medication use Hypothyroidism Immunization counseling Inflammatory arthritis Major depressive disorder, recurrent episode with anxious distress MÉNDEZ (nonalcoholic steatohepatitis) Obstructive sleep apnea DAVONTE on CPAP Psychiatric care Psychiatric care Reactive arthritis Teresa's syndrome Urinary tract infection Vitamin D deficiency Surgical History H/O bilateral breast reduction surgery H/O rhinoplasty H/O thyroidectomy H/O: hysterectomy Family History Other Cancer Diabetes Denies family history of Anesthesia complication Bleeding disorder Social History Smoking and tobacco status: never smoked Alcohol intake: never Adopted: No Caregiver/support person: No Lives independently: Yes Household members: none Housing: House Marital status: Single Number of children: 0 Number of grandchildren: 0 Highest education level completed: Master's Degree Education level details: in 5 weeks will have Current occupational status: student and disabled Pets and animals: Yes (service dog and cat) Pets & animals: cat(s) and dog(s) History of recent travel: Yes Out of state: Yes Leisure activites: music, reading and other Leisure activities details: woodwork Current gender identity: Trans [id number]-Dwfs Leticia/Gnosticist: Wicca Special leticia needs: No Agree to transfusion: Yes Financial difficulty paying for basics: Somewhat Hard Data Anesthesia : 01/08/22 07:30 01/08/22 07:30 Short CBC 01/07/22 01/08/22 Range/Units 01:54 07:30 WBC 11.6 H 12.2 H (4.0-10.0) 10^3/uL Hgb 15.4 13.7 (11.7-16.6) g/dL Hct 46.1 41.9 L (42.0-52.0) % MCV 92.8 97.2 H (80-94) fl Plt Count 238 186 (130-400) 10^3/cmm Neut % (Auto) 71.8 82.3 % Neut # (Auto) 8.31 H 9.99 H (1.8-7.7) 10^3/uL BMP 01/07/22 01/08/22 01:54 07:30 Sodium 139 140 Potassium 4.3 3.9 Chloride 102 107 Carbon Dioxide 25 24 BUN 12 12 Creatinine 1.2 1.1 Glucose 133 H 136 H Calcium 9.8 8.6 Liver Function 01/07/22 01/08/22 Range/Units 01:54 07:30 Total Bilirubin 0.5 0.6 (0.15-1.2) mg/dL AST 27 22 (0-40) U/L ALT 11 20 (0-41) U/L Alkaline Phosphatase 116 92 (40-130) U/L Albumin 4.2 3.7 (3.5-5.2) g/dL Urine 01/08/22 Range/Units 01:54 Urine Color Red (Yellow) Urine Appearance Cloudy (CLEAR) Urine pH 5 (5-7) Ur Specific [place] 1.030 (1.005-1.030) Urine Protein 3+ H (Negative) Urine Glucose (UA) Norm (Normal) Urine Ketones 1+ H (Negative) Urine Nitrate Positive H (Negative) Urine Bilirubin 1+ H (Negative) Ur Leukocyte Esterase 1+ H (Negative) Urine RBC Too numerous to cnt H (0-2) /hpf Urine WBC 5-10 H (0-5) /hpf Coags 01/08/22 07:30 C-Reactive Protein 3.0 Microbiology 01/08/22 05:11 Blood Culture - Preliminary Blood SPECIMEN COLLECTED 01/08/22 05:08 Blood Culture - Preliminary Blood SPECIMEN COLLECTED Cardiac Studies: No Data to Display
--- NOTE | 2022-01-08 11:30 | SC_ITS ---
WS: [id number] C-arm fluoroscopy of the right ureter, 01/08/2022 Clinical Data: Right ureteroscopy Comparison: CT abdomen pelvis, 01/08/2022 Findings: The right retrograde urogram shows the obstructing distal right ureteral calculus. A right ureteral s tent was inserted by Dr. Barajas. SC/C-arm FL for Urology Impression: Right ureteral stent.
--- NOTE | 2022-01-08 12:02 | W.PM.OPSUD ---
Surgery/Procedure H&P Update DATE OF PROCEDURE: January 08, 2022 DATE H&P PERFORMED: 01/08/22 H&P UPDATE INFORMATION: I have reviewed H&P completed within last 30 days, I have examined patient prior to procedure, Changes to prior documentation as noted here and H&P to be scanned into chart CHANGES TO PREVIOUS DOCUMENTATION: Corrected the consent form to read: Cystoscopy, RIGHT: Retrograde, ureteroscopy, laser, stent We both initialed it. This was a procedure that we consented in the emergency department this morning. PREOP DIAGNOSIS: Right distal ureteral stone w/UTI PLANNED PROCEDURE: Operation Date: 01/08/22 11:30 Proposed Procedures p Cystoscopy(Not Applicable) - Augustin Barajas MD s Retrograde Pyelogram(Right) - MD roselyn Sanchez Ureteroscopy(Right) - MD roselyn Sanchez Laser Lithotripsy(Right) - MD roselyn Sanchez Ureteral Stent Placement(Right) - Augustin Barajas MD
--- NOTE | 2022-01-08 12:05 | P.OP_ITS ---
Operative Report Date of procedure: 01/08/2022 Pre-op diagnosis: Right distal ureteral stone w/UTI Post-op diagnosis: Right distal ureteral stone w/UTI Procedure done: 1. Cystoscopy, RIGHT retrograde ureteropyelogram 2. Right: Ureteroscopy, stone manipulation/removal, stent Implants: Right ureteral stent 7 Portuguese by 28 cm double-pigtail without string Specimens removed/disposition: Stone fragments Pathology: Stone fragments Surgeon: Karl Estimated blood loss: Minimal Urine output: Not measured Complications: None Findings: Anesthesia: General Condition stable Disposition: PACU Intraoperative findings: Stone in the expected position, withdrawn laser fragmentation not required. Stent left indwelling Brief History: Nasim is a very pleasant 51-year-old who presented with about a 24+ hour history of right flank pain typical for renal colic. CT scan demonstrated an obstructing 5 mm stone at the right UVJ. Urinalysis showed nitrite positive, and positive for leukocytes. No evidence of sepsis. Based on the severe symptoms related to the stone as well as the presence of UTI it was elected to proceed with intervention. We discussed stenting alone if there is development of septic type picture versus attempt at the stone in the p resence of hemodynamic stability. Procedure: After urgent evaluation examination and obtaining of informed consent patient was taken to the operating room on 01/08/2022 where general anesthesia was administered without difficulty. Prepped and draped in the usual sterile fashion in dorsolithotomy position paying careful attention to avoiding pressure points. Appropriate timeout was performed, SCDs confirmed to be functioning, preoperative antibiotics administered, beta-franny protocol confirmed. 21 Portuguese cystoscope with 30 degree lens was introduced into urethra meatus and advanced into the bladder under videoscopy. Bladder was systematically examined. No stones were seen. An 8 Portuguese cone-tip catheter was intubated into the right ureteral orifice for right retrograde ureteropyelogram which demonstrated the ureter distal to the stone to be normal. Ureter proximal to the stone was dilated. No other filling defects were identified. Only a very small amount of contrast was injected under very low pressure. Flexible tip guidewire was then advanced up the right ureter bypassing the stone and curling in the area of the kidney. The distal ureter was then dilated with a 15 Portuguese 4 cm balloon until no waist existed. The wire was secured to the drapes as a safety wire. A 7 Portuguese offset semirigid ureteroscope was advanced up the right ureter next to the wire where the stone was encountered in its expected position. There appeared to be a couple fragments of the stone. These were grasped grasping forceps 1 at a time and removed without difficulty. They did not require laser lithotripsy. All fragments were removed. Final inspection showed the ureter to be in good shape. Cystoscope was then backloaded over the guidewire and a 7 Portuguese by 28 cm double-pigtail stent was advanced over the guidewire through the cystoscope into appropriate position as confirmed via fluoroscopy and cystoscopy. Stent was confirmed to be functioning. Bladder was drained and the stone fragments were sent for pathologic evaluation and procedure completed. Tolerated the procedure well without complications and was awakened in the operating room and returned to the recovery room in stable condition. PLANS: 1. Continue IV antibiotics 2. Maintain stent for least a week with definitive time chosen based on her response to antibiotic therapy and recovery from the infection
[2022-01-08] MEDS: levofloxacin-dextrose 5 % 500 MG/100 ML PREMIX 100 MG IV (12:15)
--- NOTE | 2022-01-08 15:12 | SUR.PHASEI ---
REPORT CALLED TO TANNA MCKNIGHT ON FLOOR. ROOM 257.
--- NOTE | 2022-01-08 15:22 | ANE.PACU2 ---
Inpatient post-anesthesia follow up: Airway intact: Yes Vital signs: Temperature 97.2 F Pulse Rate 61 Respiratory Rate 18 Blood Pressure 133/82 Pulse Oximetry 94 Oxygen Delivery Me thod Room Air Oxygen Flow Rate 6 Fraction of Inspir ed Oxygen Hydration adequate: Yes Nausea and vomiting: No Pain level: 3 Mental status: Baseline
[2022-01-08 16:40] LABS: Glucose Point of Care 128 mg/dL (70-110)
--- NOTE | 2022-01-08 16:55 | PM.PN ---
Subjective Subjective: Awaiting cystoscopy this morning. Right side abdominal, right flank pain and tenderness. Some chills. Vitals/I&O/Wt Last Vital Signs Temp 98.1 F 01/08/22 16:00 Pulse 59 L 01/08/22 16:00 Resp 17 01/08/22 16:00 BP 133/81 01/08/22 16:00 Pulse Ox 94 01/08/22 16:00 O2 Del Method 01/08/22 16:00 O2 Flow Rate 6 01/08/22 12:51 01/08/22 01/08/22 01/08/22 06:59 14:59 22:59 Intake Total 1150 / 1150 1050 / 2200 Output Total 0 / 0 Balance 1150 / 1150 1050 / 2200 Weight last 48 hrs Weight 90.764 kg Weight 81.647 kg Physical Exam Narrative: Minimal tremors/chills Const: COMMON NORMALS: patient oriented x3 and alert GENERAL APPEARANCE: cooperative ORIENTATION/CONSCIOUSNESS: Yes awake HENMT: COMMON NORMALS: oropharynx normal Neck/C-Spine: COMMON NORMALS: no JVD Resp: COMMON NORMALS: normal respiratory effort and clear to auscultation bilaterally AUSCULTATION: clear to auscultation bilaterally Cardio: COMMON NORMALS: no JVD, regular rhythm, S1 normal heart sound present, S2 normal heart sound present and No murmurs present (Cardio) RHYTHM: regular rhythm HEART SOUNDS: S1 normal heart sound present and S2 normal heart sound present GI: COMMON NORMALS: Normal to inspection, nondistended, normoactive bowel sounds present and Soft to palpation PALPATION: Yes Soft to palpation and Yes Tenderness to palpation present (GI) (Right abdomen, right flank) Extremity: COMMON NORMALS: no joint enlargement and no pedal edema Neuro: COMMON NORMALS: patient oriented x3 and moves all extremities SENSORIUM/ORIENTATION: Yes alert Skin: COMMON NORMALS: no rashes or lesions noted GENERAL SKIN EXAM: no rashes or lesions noted Data : 01/08/22 07:30 01/08/22 07:30 Micro: Microbiology 01/08/22 05:11 Blood Culture - Preliminary Blood SPECIMEN COLLECTED 01/08/22 05:08 Blood Culture - Preliminary Blood SPECIMEN COLLECTED A&P Assessment and plan (1) Right distal ureteral calculus: S/p cystoscopy, right retrograde ureteropyelogram, right ureteroscopy stone manipulation and fragmented removal, stent. Continue antibiotic coverage empirically for complicated ascending urinary tract infection, maintain Khalil catheter for at least a week. Status: Acute (2) Colon wall thickening: Will additionally need follow-up.Rectal wall thickening. Unclear cause. Will need follow-up. Status: Acute (3) Lung density on x-ray: Vague nodular densities of lower lungs. Unclear significance. Consider optional CT chest at 12 months if risk factors. Status: Acute (4) Abnormal liver diagnostic imaging: Nodular appearance of the liver noted. History of MÉNDEZ. Will need follow-up for additional assessment consideration of progression to fibrosis or cirrhosis. Status: Acute (5) MÉNDEZ (nonalcoholic steatohepatitis): Status: Chronic (6) Splenomegaly: Incidentally noted, as above consideration of portal hypertension progression to fibrosis or cirrhosis. Status: Acute Attestations Medical Necessity Statement*: Continue hospitalization after cystoscopy, ureteroscopy, ureteral stone removal, stent placement, treatment of complicated ascending UTI. Coding Level of Care Code Acute [employer] for [facility] Fwd Diagnoses Right distal ureteral calculus N20.1 Colon wall thickening K63.9 Lung density on x-ray J98.4 Abnormal liver diagnostic imaging R93.2 MÉNDEZ (nonalcoholic steatohepatitis) K75.81 Splenomegaly R16.1
[2022-01-08] MEDS: cefepime 1,000 MG in sodium chloride 0.9% (plus) 50 ML 100 MG IV (17:03)
[2022-01-08 20:45] LABS: Glucose Point of Care 134 mg/dL (70-110)
[2022-01-09 04:00] VITALS: BP 119/65; PULSE 68; RESP 17; TEMP 36.7; O2SAT 94
[2022-01-09] MEDS: cefepime 1,000 MG in sodium chloride 0.9% (plus) 50 ML 100 MG IV (04:54)
[2022-01-09 05:03] LABS: Basophils % 0.1 %; Eosinophils % 0.1 %; Hematocrit 39.8 % (42.0-52.0); Hemoglobin 13.1 g/dL (11.7-16.6); Lymphocytes # 1.9 10^3/uL (0.8-4.8); Mean Corpuscular HGB Conc 32.9 g/dL (30.0-36.0); Mean Corpuscular Hemoglobin 31.2 pg (28.0-34.0); Mean Corpuscular Volume 94.8 fl (80-94); Mean Platelet Volume 9.8 fL (7.4-10.4); Monocytes # 0.9 10^3/uL (0.2-0.9); Monocytes % 6.4 %; Neutrophils # 10.68 10^3/uL (1.8-7.7); Neutrophils % 78.9 %; Nucleated Red Blood Cells % 0 %; Platelet Count 191 10^3/cmm (130-400); Red Cell Distribution Width 11.6 % (12.1-15.1); White Blood Count 13.5 10^3/uL (4.0-10.0)
[2022-01-09 05:33] LABS: Anion Gap 14.5 (5-19); Blood Urea Nitrogen 12 mg/dL (6-20); Calcium 8.9 mg/dL (8.5-10.5); Carbon Dioxide 23 mmol/L (22-29); Chloride 104 mmol/L (98-107); Glomerular Filtration Rate 89.7 mL/min (90-130); Glucose 130 mg/dL (65-115); Osmolality Calculated 286 mOsm/kg (285-295); Potassium 4.5 mmol/L (3.5-5.1); Sodium 137 mmol/L (136-145)
[2022-01-09 06:00] VITALS: PULSE 51
[2022-01-09] MEDS: sodium chlor 0.45% +KCl 20 mEq 20 MEQ/1,000 ML BAG 150 MEQ IV (06:28)
[2022-01-09 06:29] LABS: Glucose Point of Care 118 mg/dL (70-110)
[2022-01-09 08:00] VITALS: BP 122/77; PULSE 64; RESP 15; TEMP 36.7; O2SAT 95
[2022-01-09 10:25] LABS: Glucose Point of Care 104 mg/dL (70-110)
[2022-01-09 12:00] VITALS: BP 124/78; PULSE 64; RESP 16; TEMP 36.9; O2SAT 95
--- NOTE | 2022-01-09 13:19 | PC.CHAP ---
Pastoral Care Encounter/Spiritual Assessment Type of Contact [] Declined vending route servicer visit [] Patient/Family/Request visit [] Outpatient visit [] Follow-up visit [] Physician referral [] Code/Alert [x] Routine visit [] Staff referral [] Actively dying [] Patient sleeping [] Family support [] [] Out of room [] Palliative care [] [] Receiving care in room [] Pre-surgical visit [] Trauma [] Long length of stay [] ICU visit [] Other: Relational/Emotional Strength [x] Patient feels connected with others/family/visitors/staff [] Distress [] Loneliness/isolation [] Abandonment Spirituality of Patient [x] Person of Leticia [x] Attends [employer] of their Leticia [x] Believes in Prayer [] Reads Bible or Church materials [] There are Spiritual issues to be addressed Jump Roll Operator Interventions [x] Prayer [x] Active listening [x] Non-anxious presence [] Spiritual/emotional support [] Crisis/trauma care [] Spiritual counseling [] Bereavement support [] Provided bereavement packet [] Provided Bible/devotional materials [] Provided toy/stuffed animal, coloring book to patient or family member [] Provided Communion [] Anointing/Taylor [] Salvation [x Impact on Illness or Injury [] Angry [] Fearful [] Anxious [] Often cries [] Exhaustion [] Unable to work [] Unable to attend restoration [] Unable to walk/stand [] Unable to read [] Unable to drive [] Unable to eat/drink [] Unable to sleep [] Unable to be with family [] Patient intubated [] Other: Summary Time spent with patient 10 min
[2022-01-09 15:49] VITALS: BP 142/77; PULSE 71; RESP 14; TEMP 36.8; O2SAT 96
[2022-01-09 16:38] VITALS: BP 142/77; PULSE 71; RESP 14; TEMP 36.8; O2SAT 96
--- NOTE | 2022-01-09 22:01 | P.DS_ITS ---
Discharge Providers Date of Admission: 01/08/22 10:05 Date of Discharge: January 09, 2022 Attending Provider at Admission: Augustin Barajas MD Attending Provider at Discharge: Jon Jasso Primary Care Provider: Ely Mejia DO Diagnoses at Discharge Discharge Diagnosis (1) Right distal ureteral calculus: Status: Acute (2) Colon wall thickening: Status: Acute (3) Lung density on x-ray: Status: Acute (4) Abnormal liver diagnostic imaging: Status: Acute (5) LOPEZ (nonalcoholic steatohepatitis): Status: Chronic (6) Splenomegaly: Status: Acute Reason for Visit Reason for Visit: side/abd pain Hospital Course Hospital Course 51-year-old pleasant gentleman was admitted for assessment of management of right distal ureteral calculus, with ascending urinary tract infection, concern for progression towards sepsis, underwent cystoscopy, retrograde pyelogram, ureteroscopy, stone fragment retrieval, stent placement. With significant improvement in symptoms, she continue on antibiotics at discharge for with stent to remain in place for at least a week until urology follow-up. CT abdomen pelvis with a number of incidental findings, including rectal wall thickening, once recovering from acute illness discussed consideration of as sessment by endoscopy. Also vague nodular densities in lower lungs, patient is at low risk no routine follow-up indicated, but at high risk consider optional CT at 12 months. Nodular contour of anterior liver noted with history of Lopez, concern for possible progression to fibrosis or cirrhosis, as well as incidental splenomegaly. Please follow-up with regards to these findings. Physical Exam Const: COMMON NORMALS: patient oriented x3 and alert GENERAL APPEARANCE: cooperative ORIENTATION/CONSCIOUSNESS: Yes awake HENMT: COMMON NORMALS: oropharynx normal Neck/C-Spine: COMMON NORMALS: no JVD Resp: COMMON NORMALS: normal respiratory effort and clear to auscultation bilaterally AUSCULTATION: clear to auscultation bilaterally Cardio: COMMON NORMALS: no JVD, regular rhythm, S1 normal heart sound present, S2 normal heart sound present and No murmurs present (Cardio) RHYTHM: regular rhythm HEART SOUNDS: S1 normal heart sound present and S2 normal heart sound present GI: COMMON NORMALS: Normal to inspection, nondistended, normoactive bowel sounds present, Soft to palpation and non-tender PALPATION: Yes Soft to palpation Extremity: COMMON NORMALS: no joint enlargement and no pedal edema Neuro: COMMON NORMALS: patient oriented x3 and moves all extremities SENSORIUM/ORIENTATION: Yes alert Skin: COMMON NORMALS: no rashes or lesions noted GENERAL SKIN EXAM: no rashes or lesions noted Discharge Data Studies Completed and Pending Completed Studies During Hospitalization Category Date Time Status CT abdomen renal stone [CT kidney stone 32178] Stat Cat Scan 01/08/22 02:51 Completed Pathology: Surgical [PTH] Routine Pth 01/08/22 12:37 Completed Pending at discharge Category Date Time Status Blood Culture Stat Lab 01/08/22 05:11 Results Stone Analysis Routine Lab 01/08/22 12:36 Received Urine Culture Stat Lab 01/08/22 01:54 Results Radiology Impressions Abdomen/Pelvis CT 01/08/22 02:51 IMPRESSION: 1. Obstructing distal right ureteral calculus. 2. Bilateral intrarenal punctate calculi. 3. Rectal wall thickening. 4. Vague nodular densities lower lungs, significance uncertain.For patients at low risk (minimal or absent history of smoking and of other known risk factors), no routine follow-up is indicated. For patients at high risk (history of smoking or of other known risk factors), consider optional CT Chest at 12 months. (Reference: Ld) 5. Cyst lower right hepatic lobe. No follow-up is required. 6. Nodular contour of the anterior liver. Correlate for any documented hepatic disorder. 7. Splenomegaly. REFERENCES: Ld Glez, et al. Guidelines for Management of Incidental Pulmonary Nodules Detected on CT Images: From the Fleischner Society 2017. Radiology. 2017;284(1):228-243. C-Arm Fluoroscopy 01/08/22 11:30 Impression: Right ureteral stent. Laboratory Results WBC 13.5 10^3/uL (4.0-10.0) H 01/09/22 04:24 RBC 4.20 10^6/uL (4.1-5.3) 01/09/22 04:24 Hgb 13.1 g/dL (11.7-16.6) 01/09/22 04:24 Hct 39.8 % (42.0-52.0) L 01/09/22 04:24 MCV 94.8 fl (80-94) H 01/09/22 04:24 MCH 31.2 pg (28.0-34.0) 01/09/22 04:24 MCHC 32.9 g/dL (30.0-36.0) 01/09/22 04:24 RDW 11.6 % (12.1-15.1) L 01/09/22 04:24 Plt Count 191 10^3/cmm (130-400) 01/09/22 04:24 MPV 9.8 fL (7.4-10.4) 01/09/22 04:24 Neut % (Auto) 78.9 % 01/09/22 04:24 Lymph % (Auto) 14.0 % 01/09/22 04:24 Overton % (Auto) 6.4 % 01/09/22 04:24 Eos % (Auto) 0.1 % 01/09/22 04:24 Baso % (Auto) 0.1 % 01/09/22 04:24 Neut # (Auto) 10.68 10^3/uL (1.8-7.7) H 01/09/22 04:24 Lymph # (Auto) 1.9 10^3/uL (0.8-4.8) 01/09/22 04:24 Overton # (Auto) 0.9 10^3/uL (0.2-0.9) 01/09/22 04:24 Eos # (Auto) 0.0 10^3/uL (0.0-0.8) 01/09/22 04:24 Baso # (Auto) 0.0 10^3/uL (0.0-0.1) 01/09/22 04:24 Nucleated RBC % (auto) 0 % 01/09/22 04:24 Nucleated RBCs # 0.0 /100WBC 01/09/22 04:24 Sodium 137 mmol/L (136-145) 01/09/22 04:24 Potassium 4.5 mmol/L (3.5-5.1) 01/09/22 04:24 Chloride 104 mmol/L (98-107) 01/09/22 04:24 Carbon Dioxide 23 mmol/L (22-29) 01/09/22 04:24 Anion Gap 14.5 (5-19) 01/09/22 04:24 BUN 12 mg/dL (6-20) 01/09/22 04:24 Creatinine 0.9 mg/dL (0.7-1.2) 01/09/22 04:24 GFR Calculation 89.7 mL/min (90-130) L 01/09/22 04:24 Glucose 130 mg/dL (65-115) H 01/09/22 04:24 POC Glucose 104 mg/dL (70-110) 01/09/22 10:21 Calculated Osmolality 286 mOsm/kg (285-295) 01/09/22 04:24 Calcium 8.9 mg/dL (8.5-10.5) 01/09/22 04:24 Total Bilirubin 0.6 mg/dL (0.15-1.2) 01/08/22 07:30 AST 22 U/L (0-40) 01/08/22 07:30 ALT 20 U/L (0-41) 01/08/22 07:30 Alkaline Phosphatase 92 U/L (40-130) 01/08/22 07:30 C-Reactive Protein 3.0 mg/L (0.0-4.9) 01/08/22 07:30 Total Protein 6.2 g/dL (6.6-8.7) L 01/08/22 07:30 Albumin 3.7 g/dL (3.5-5.2) 01/08/22 07:30 Globulin 2.5 g/dL (1.3-4.6) 01/08/22 07:30 Lipase 91 U/L (13-60) H 01/07/22 01:54 TSH 1.56 uIU/mL (0.27-4.20) 01/08/22 07:30 Urine Color Red (Yellow) 01/08/22 01:54 Urine Appearance Cloudy (CLEAR) 01/08/22 01:54 Urine pH 5 (5-7) 01/08/22 01:54 Ur Specific [place] 1.030 (1.005-1.030) 01/08/22 01:54 Urine Protein 3+ (Negative) H 01/08/22 01:54 Urine Glucose (UA) Norm (Normal) 01/08/22 01:54 Urine Ketones 1+ (Negative) H 01/08/22 01:54 Urine Blood 3+ (Negative) H 01/08/22 01:54 Urine Nitrate Positive (Negative) H 01/08/22 01:54 Urine Bilirubin 1+ (Negative) H 01/08/22 01:54 Urine Urobilinogen 1 mg/dL (Negative) H 01/08/22 01:54 Ur Leukocyte Esterase 1+ (Negative) H 01/08/22 01:54 Urine RBC Too numerous to cnt /hpf (0-2) H 01/08/22 01:54 Urine WBC 5-10 /hpf (0-5) H 01/08/22 01:54 Ur Squamous Epith Cells 0-4 /hpf (0-5) H 01/08/22 01:54 Amorphous Sediment 1+ /hpf 01/08/22 01:54 Urine Bacteria 2+ /hpf (NONE) H 01/08/22 01:54 Urine Mucus 1+ /hpf 01/08/22 01:54 Vitals Last Vital Signs Temp 98.3 F 01/09/22 16:38 Pulse 71 01/09/22 16:38 Resp 14 01/09/22 16:38 BP 142/77 01/09/22 16:38 Pulse Ox 96 01/09/22 16:38 O2 Del Method 01/09/22 15:49 O2 Flow Rate 6 01/08/22 12:51 Discharge Plan Discharge Patient Disposition: Home Condition: Stable Prescriptions: New cefdinir 300 mg capsule 300 mg PO BID 10 Days Qty: 20 0RF Continued testosterone cypionate 200 mg/mL oil 100 mg SUBCUT .Every 2 weeks cholecalciferol (vitamin D3) 50 mcg (2,000 unit) tablet 2,000 unit PO DAILY Qty: 30 3RF lisinopril 10 mg tablet 10 mg PO DAILY hydroxychloroquine [Plaquenil] 200 mg tablet 200 mg PO DIRECTED Rx Instructions: Take one tablet daily for 7 days and if no side effects, increase to twice per day bupropion HCl [Wellbutrin XL] 150 mg tablet extended release 24 hr 150 mg PO DAILY Qty: 30 6RF chlorpheniramine maleate [ChlorTabs] 4 mg tablet 4 mg PO Q6H PRN (Reason: Allergy Symptoms) Qty: 60 1RF Discharge Orders: Discharge Order (Routine); Ordered 01/09/22 Ordered By: Jon Jasso Referrals: Augustin Barajas MD [Physician] - 4-7 days (Cystoscopy stent removal OFFICE WILL CALL WITH APPOINTMENT) Ely Mejia DO [Primary Care Provider] - 01/16/22 3:00 pm Discharge Diet: Advance as tolerated Patient Instructions: Cefdinir (By mouth), Kidney Stones (GEN), Enlarged Spleen (GEN), Ureteroscopy (GEN), Post Anesthesia Care Activity Restrictions/Additional Instructions: 1. The procedure went well. The stone was easily accessed and removed 2. Stent is likely to create urgency, frequency Please discuss with your primary doctor vague nodular densities of lower lungs, discussed consideration of follow-up with possible CT scan at 12 months. Please follow-up with your primary doctor as you are recovering from your kidney infection kidney stone, please discuss thickening noted in the rectal wall of unclear cause. Discussed follow-up for additional assessment with colonoscopy to exclude any concerning abnormalities. Continue follow-up with your primary doctor regarding stat hepatitis, please discuss also findings of nodular appearance to your liver, concern for possible progression to liver fibrosis or liver cirrhosis. Please also discuss with your primary doctor enlarged spleen, again possibly due to progression of liver disease to fibrosis or liver cirrhosis. Avoid anything that may be injurious to the liver, including medications like NSAIDs for example ibuprofen, Aleve, etc. Discharge Attestations Time Spent in Discharge Care*: greater than 30 min Quality Metrics Clinical Quality Measures [ No reported AMI, CVA or VTE this stay] Coding Level of Care Code Acute Chg [facility] note Diagnoses Right distal ureteral calculus N20.1 Colon wall thickening K63.9 Lung density on x-ray J98.4 Abnormal liver diagnostic imaging R93.2 LOPEZ (nonalcoholic steatohepatitis) K75.81 Splenomegaly R16.1
[2022-01-13 17:47] LABS: Stone Source RIGHT URETER
== END 2022-01-09 16:40 | disposition home or self-care (01) ==
LOC: ER 01-08 06:20 → OPS 01-08 10:04 → MEDSURG 01-08 23:52
PROVIDERS: Family Medicine; Physician Assistant; Surgery; Admitting Provider Urology; Emergency Provider Emergency Medicine; PCP Family Medicine; Visit Provider Internal Medicine
PROC: 0TJB8ZZ Inspection of Bladder, Via Natural or Artificial Opening Endoscopic (ICD-10-PCS; CPT 52000; principal; 2022-01-08 11:30)
PROC: (CPT 74420; 2022-01-08 11:30)
PROC: 0TJ98ZZ Inspection of Ureter, Via Natural or Artificial Opening Endoscopic (ICD-10-PCS; CPT 52351; 2022-01-08 11:30)
PROC: (CPT 52332; 2022-01-08 11:30)
PROC: (CPT 50605; 2022-01-08 11:30)
DX: N20.1 Calculus of ureter (principal); K63.9 Disease of intestine, unspecified; J98.4 Other disorders of lung; R93.2 Abnormal findings on diagnostic imaging of liver and biliary tract; K75.81 Nonalcoholic steatohepatitis (NASH); R16.1 Splenomegaly, not elsewhere classified; M06.9 Rheumatoid arthritis, unspecified; F41.1 Generalized anxiety disorder; G47.33 Obstructive sleep apnea (adult) (pediatric); E03.9 Hypothyroidism, unspecified; E11.9 Type 2 diabetes mellitus without complications
CPT/HCPCS: 52332; 52352; 36415; 36416; 74176; 76000; 80048; 80053; 81001; 82365; 82962; 83690; 84443; 85025; 86140; 87040; 87086; 88300; 94664; 96365; 96367; 96375; 99285; C2625; G0378; J0692; J1100; J1200; J1956; J2250; J2270; J2405; J2710; J3010; J3490; J7030

== ENCOUNTER → 2022-01-15 15:13 | Outpatient (BNVA) | payer MEDICARE, MEDICAID, SELFPAY ==
[2021-07-01 15:36] VITALS: BP 120/77; BMI 30.7
== END ==
PROVIDERS: PCP Family Medicine; Visit Provider Urology
DX: Z96.0 Presence of urogenital implants (principal); N20.1 Calculus of ureter
CPT/HCPCS: 52310

== ENCOUNTER 2022-01-23 09:01 | Outpatient (CLI) | payer MEDICARE, MEDICAID, SELFPAY ==
[2021-07-01 15:36] VITALS: BP 120/77; BMI 30.7
--- NOTE | 2022-01-23 09:19 | ECG_ITS ---
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 Measurements Intervals Amelia Rate: 82 P: 55 NM: 158 QRS: 94 QRSD: 94 T: 51 QT: 361 QTc: 423 Interpretive Statements SINUS RHYTHM BORDERLINE RIGHT AXIS DEVIATION [QRS AXIS > 90] INCOMPLETE RIGHT BUNDLE BRANCH BLOCK [90+ ms QRS DURATION, TERMINAL R IN V1/V2, 40+ ms S IN I/aVL/V4/V5/V6] MODERATE ST DEPRESSION [0.05+ mV ST DEPRESSION] Compared to ECG 01/19/2020 21:29:43 ST (T wave) deviation now present Sinus arrhythmia no longer present Electronically Signed On 01-23-2022 19:11:42 CDT by Sarah Schreiber M.D. [email or web address]
== END 2022-01-23 09:02 | disposition home or self-care (01) ==
LOC: RT 09:04
PROVIDERS: PCP Family Medicine; Visit Provider Specialist
DX: Z01.810 Encounter for preprocedural cardiovascular examination (principal)
CPT/HCPCS: 93005

== ENCOUNTER → 2022-02-09 13:38 | Outpatient (BNVA) | payer MEDICARE, MEDICAID, SELFPAY ==
[2021-07-01 15:36] VITALS: BP 120/77; BMI 30.7
== END ==
PROVIDERS: PCP Family Medicine; Visit Provider Internal Medicine Cardiovascular Disease
DX: I10 Essential (primary) hypertension (principal); R94.31 Abnormal electrocardiogram [ECG] [EKG]; E11.9 Type 2 diabetes mellitus without complications; M19.90 Unspecified osteoarthritis, unspecified site; I45.10 Unspecified right bundle-branch block
CPT/HCPCS: 99204

== ENCOUNTER 2022-02-18 18:45 | Emergency (ER) | payer MEDICARE, MEDICAID, SELFPAY ==
[2021-07-01 15:36] VITALS: BP 120/77; BMI 30.7
[2022-02-18 18:54] VITALS: BP 125/83; PULSE 84; RESP 14; TEMP 37.2; O2SAT 95; BMI 29.0
--- NOTE | 2022-02-18 19:32 | W.ED.WOUNDLC ---
HPI - Wound/Laceration General: Chief Complaint: Wound/Laceration Stated Complaint: Left Index Finger Cut Time Seen by Provider: 02/18/22 19:26 History of Present Illness: Patient is a 51-year-old male comes to the ED with laceration to left index finger. Injury occurred just prior to arrival. Patient says he was cutting up some food and kitchen and accidentally cut the distal pad of his left index finger. He was able to control the bleeding with a bandage. He is not up-to-date on his tetanus and that is the main reason he came here to the ED today. Denies any other complaints. Associated symptoms: Denies chills, fever(s), nausea or vomiting Review of Systems Const: Denies: fever(s), chills or fatigue Eyes: Denies: change in vision or eye discomfort ENMT: Denies: throat pain, odynophagia, nasal discharge or nasal congestion Card: Denies: chest pain, palpitations, edema, swelling of feet/ankles, dyspnea on exertion or orthopnea Resp: Denies: dyspnea, productive cough or non-productive cough GI: Denies: abdominal pain, nausea, vomiting, diarrhea, constipation or hematochezia : Denies: flank pain, difficulty urinating, dysuria or hematuria Musc: Denies: neck pain, back pain or extremity swelling Skin/Breast: Reports: new lesions (Laceration to index finger.); Denies: rash Neuro: Denies: headache(s), numbness in extremities or weakness in extremities PFS ED PFSH: Medical History Acute gastritis without bleeding Biliary dyskinesia Cholelithiasis Chronic joint pain Chronic post-traumatic stress disorder Dissociative identity disorder Elevated hemoglobin Elevated testosterone level Enrolled in chronic care management [id number] transgender person Generalized anxiety disorder High risk medication use Hypothyroidism Immunization counseling Inflammatory arthritis Major depressive disorder, recurrent episode with anxious distress MÉNDEZ (nonalcoholic steatohepatitis) Obstructive sleep apnea DAVONTE on CPAP Psychiatric care Psychiatric care Reactive arthritis Teresa's syndrome Urinary tract infection Vitamin D deficiency Surgical History H/O bilateral breast reduction surgery H/O rhinoplasty H/O thyroidectomy H/O: hysterectomy Family History Mother , at age 86 Cancer Breast/skin Urinary tract infection COPD (chronic obstructive pulmonary disease) Lung disease Father , late 80s Diabetes Grandmother Stroke Family/Other Suicide Denies family history of CAD (coronary artery disease) Clotting disorder Dementia Chronic kidney disease (CKD) Anesthesia complication Bleeding disorder Social History Smoking and tobacco status: never smoked Alcohol intake: never Adopted: No Caregiver/support person: No Lives independently: Yes Household members: none Housing: House Marital status: Number of children: 0 Number of grandchildren: 0 Highest education level completed: Master's Degree Education level details: in 5 weeks will have Current occupational status: student and disabled Pets and animals: Yes (service dog and cat) Pets & animals: cat(s) and dog(s) History of recent travel: No Leisure activites: music, reading and other Leisure activities details: woodwork Current gender identity: Trans [id number] Leticia/Zoroastrianism: Wicca Special leticia needs: No Agree to transfusion: Yes Financial difficulty paying for basics: Somewhat Hard Physical Exam Const: COMMON NORMALS: no acute distress, patient oriented x3, healthy appearing and alert GENERAL APPEARANCE: cooperative and comfortable HENMT: COMMON NORMALS: normocephalic HEAD & SCALP: normocephalic MOUTH: Normal oral and palatal mucosa present THROAT: posterior oropharynx normal and uvula midline Neck/C-Spine: COMMON NORMALS: supple GENERAL: Yes normal visual inspection Resp: COMMON NORMALS: normal respiratory effort, No retractions, No use of accessory muscles and clear to auscultation bilaterally AUSCULTATION: clear to auscultation bilaterally Cardio: COMMON NORMALS: regular rate, regular rhythm, S1 normal heart sound present, S2 normal heart sound present, No gallops present (Cardio), No clicks present (Cardio), No murmurs present (Cardio) and Peripheral pulses 2+ throughout RATE: regular rate RHYTHM: regular rhythm HEART SOUNDS: S1 normal heart sound present and S2 normal heart sound present PERIPHERAL PULSES: Peripheral pulses 2+ throughout GI: COMMON NORMALS: Normal to inspection, nondistended, normoactive bowel sounds present, Soft to palpation, non-tender and no masses PALPATION: Yes Soft to palpation : COMMON NORMALS: Yes no CVA tenderness BLADDER/KIDNEY EXAM: Yes no CVA tenderness Back/Pelvis: COMMON NORMALS: no CVA tenderness Extremity: NARRATIVE EXTREMITY EXAM: Left hand?index finger?distal pad has small superficial 0.5 cm flap-like laceration. No nailbed or nail damage noted. Bleeding is controlled. After reviewing laceration no sutures needed at this time. GENERAL: Yes normal exam except as noted Neuro: COMMON NORMALS: patient oriented x3 SENSORIUM/ORIENTATION: Yes alert GAIT: Yes Normal gait present Skin: GENERAL SKIN EXAM: dry skin Course Vital Signs: Vital signs: Vital Signs Temperature 99.0 F 02/18/22 18:54 Pulse Rate 84 02/18/22 18:54 Respiratory Rate 14 02/18/22 18:54 Blood Pressure 125/83 02/18/22 18:54 Pulse Oximetry 95 02/18/22 18:54 Oxygen Delivery Me thod 02/18/22 18:54 MDM - Wound/Laceration Medical Decision Making Patient is a 51-year-old male comes in the ED with laceration to left index finger. Vitals are stable. Exam?left hand?index finger?distal pad has small superficial 0.5 cm flap-like laceration. No nailbed or nail damage noted. Bleeding is controlled. After reviewing laceration no sutures needed at this time. Nurse irrigated and cleaned laceration site with normal saline. Patient was given updated tetanus here in the ED. Triple antibiotic ointment was applied along with bandage. Patient was discharged home with prophylactic antibiotic prescription. Told to follow-up with his PCP within the next week for reevaluation. Patient understood and agreed with plan. Discharge Plan Discharge Patient Disposition: Home Clinical Impression: Finger laceration Qualifiers: Encounter type: initial encounter Finger: index finger Damage to nail status: without damage Foreign body presence: without foreign body Laterality: left Qualified Code(s): S61.211A - Laceration without foreign body of left index finger without damage to nail, initial encounter Condition: Stable Prescriptions: New cephalexin 500 mg capsule 500 mg PO Q6H 4 Days Qty: 16 0RF No Action testosterone cypionate 200 mg/mL oil 100 mg SUBCUT .Every 2 weeks cholecalciferol (vitamin D3) 50 mcg (2,000 unit) tablet 2,000 unit PO DAILY Qty: 30 3RF lisinopril 10 mg tablet 10 mg PO DAILY hydroxychloroquine [Plaquenil] 200 mg tablet 200 mg PO BID Rx Instructions: Take one tablet daily for 7 days and if no side effects, increase to twice per day bupropion HCl [Wellbutrin XL] 150 mg tablet extended release 24 hr 150 mg PO DAILY Qty: 30 6RF haloperidol 5 mg tablet 2.5 mg PO BID PRN (Reason: anxiety/agitation) Qty: 30 3RF Rx Instructions: Take half tablet twice per day as needed for anxiety/agitation chlorpheniramine maleate [ChlorTabs] 4 mg tablet 4 mg PO Q6H PRN (Reason: Allergy Symptoms) Qty: 60 1RF Discharge Orders: Discharge ED (Routine); Ordered 02/18/22 Ordered By: Carlos Wilkins Referrals: Ely Mejia DO [Primary Care Provider] - Discharge Diet: Regular Discharge Activity: Resume usual activity Patient Instructions: Finger Laceration (ED) Activity Restrictions/Additional Instructions: Take full course of antibiotics as prescribed. Keep laceration site clean and dry. Clean daily with soap and water and then apply thin layer of triple antibiotic ointment on it and cover with bandage. Watch for signs of infection such as redness, warmth, increased tenderness and puslike drainage. If you see the signs of infection return to the ED, urgent care or PCP for reevaluation. call your PCP to schedule a follow-up appointment for reevaluation in about 7- 10 days. Continue taking all home meds. Follow discharge plans as discussed. You can return to the ED if symptoms worsen. 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
[2022-02-18] MEDS: tetanus-dipt-pertussis 0.5 mL SDV IM (19:55)
[2022-02-18] MEDS: neomycin-poly-bacitracin oint 28 gm 1 APPLIC TOPICAL (19:56)
== END 2022-02-18 20:16 | disposition home or self-care (01) ==
PROVIDERS: Emergency Provider Physician Assistant; PCP Family Medicine
DX: S61.211A Laceration without foreign body of left index finger without damage to nail, initial encounter (principal); W26.0XXA Contact with knife, initial encounter; Y93.G1 Activity, food preparation and clean up; Z23 Encounter for immunization
CPT/HCPCS: 90471; 90715; 99283

== ENCOUNTER 2022-03-11 07:27 | Outpatient (CLI) | payer MEDICARE, MEDICAID, SELFPAY ==
[2021-07-01 15:36] VITALS: BP 120/77; BMI 30.7
--- NOTE | 2022-03-11 | ECG_ITS ---
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 Interpretive Statements NAME OF STUDY: EXERCISE SESTAMIBI STRESS TEST INDICATION: ABNORMAL EKG/PRE-OP EVAL, PROCEDURE: The baseline electrocardiogram showed [normal sinus rhythm with incomplete right bundle branch block pattern. At the baseline, the patient's blood pressure was 123/82 mm Hg with a heart rate of 85. The patient exercised for 7 minutes and 59 seconds on a standard Louie protocol. Patient attained a maximum heart rate of 152 beats per minute(88% of the maximum predicted heart rate) with a blood pressure at the peak exercise of 148/69 mm Hg. The EKG at the peak exercise revealed sinus tachycardia with right bundle branch block. No significant ST-T changes. Patient did not have any chest pain or any significant arrhythmis with the exercise Sestamibi was injected 1 minute prior to the peak exercise During the recovery phase, there were no new changes. Blood pressure at the end of the recovery phase was 140/73 mm Hg with a heart rate of 107 per minute. CONCLUSION: 1. No significant EKG changes with the treadmill exercise 2. No exercise-induced chest pain or cardiac arrhythmia 3. Fair exercise tolerance, attained a maximum of 10.2 METs 4. Sestamibi/Sestamibi perfusion results pending; see separate report. Electronically Signed On 03-15-2022 18:11:39 TURNER MACHINE by Sarah Schreiber M.D. [id number]
[2022-03-11 08:08] VITALS: BMI 27.3
--- NOTE | 2022-03-11 08:10 | NMCV_ITS ---
NM wanda perf SPECT r/s* [id number] Nasim Samano Age: 51 Gender: M : 1970 Exam Date: 03/11/2022 08:51 Ordering Phys: Sarah Schreiber MD ([email or web address]) Technologist: AVA Novak Exam Location: [facility] Indications: CORONARY ANGIOPLASTY STATUS STRESS TEST [facility] IMAGE PROTOCOL Rest/Stress 1 Exercise Day Radiopharmaceutical Dose (mCi) Administration Site Administered by Rest: Tc-99m 9.5 IV AVA Silver Sestamibi Stress:Tc-99m 28.0 IV AVA Silver Sestamidaryn Rest: 11-Mar-2022 60 Discovery 630 Stress: 11-Mar-2022 30 Discovery 630 Radiopharmaceutical was injected at 85 % maximum heart rate. Images obtained in supine and prone position. SPECT RESULTS Technical Quality: Excellent Raw Data Analysis: Normal Image Corrections: No attenuation or motion correction applied Summed Stress Score: 1 Summed Rest Score: 0 Summed Difference Score: 1 PERFUSION FINDINGS Patchy areas of slightly decreased tracer uptake were noted in the inferior and inferolateral regions. No significant reversibility was noted in these regions. FUNCTIONAL RESULTS (calculated via Gated SPECT) Stress Image LV EF (%): 68 Stress EDV (mL):72 TID: 0.72 Stress ESV (mL):23 FUNCTIONAL FINDINGS: Segmental wall motion analysis revealing no gross wall motion abnormalities IMPRESSIONS 1. Myocardial perfusion imaging revealing small areas of slightly decreased persistent tracer uptake in the inferior and inferolateral regions, most likely are present attenuation artifacts. 2. Normal LV ejection fraction 68%. 3. LV wall motion analysis revealing no gross wall motion abnormalities. 4. Normal LV volume Low probability for coronary ischemia, based on the above findings No similar previous studies are available for comparison Dr Sarah Schreiber MD [facility] (Electronically Signed) Final Date: 11 March 2022 23:15 S
[2022-03-11 09:47] VITALS: BP 118/74; PULSE 96
== END 2022-03-11 07:28 | disposition home or self-care (01) ==
LOC: CDL 07:28
PROVIDERS: PCP Family Medicine; Visit Provider Internal Medicine Cardiovascular Disease
DX: R94.31 Abnormal electrocardiogram [ECG] [EKG] (principal); Z01.818 Encounter for other preprocedural examination; Z98.61 Coronary angioplasty status
CPT/HCPCS: 36415; 78452; 93017; 96374; A9500

== ENCOUNTER 2022-03-16 06:02 | Outpatient (CLI) | payer MEDICARE, MEDICAID, SELFPAY ==
[2021-07-01 15:36] VITALS: BP 120/77; BMI 30.7
--- NOTE | 2022-03-16 06:15 | USCV_ITS ---
Nasim Samano Age: 51 Gender: M : 1970 Exam Date: 03/16/2022 06:13 Ordering Phys: Sarah Schreiber MD ([email or web address]) Technologist: [place] [facility] [place]: pre op clearance BP: 130 / 80 HR: 76 Rhythm: Sinus Technical Quality: MEASUREMENTS (Male / Female) Normal Values 2D ECHO LV Diastolic Diameter PLAX 3.7 cm 4.2 - 5.9 / 3.9 - 5.3 cm LV Systolic Diameter PLAX 2.6 cm IVS Diastolic Thickness 1.3 cm 0.6 - 1.0 / 0.6 - 0.9 cm IVS Systolic Thickness 1.4 cm LVPW Diastolic Thickness 1.2 cm 0.6 - 1.0 / 0.6 - 0.9 cm LVPW Systolic Thickness 1.3 cm LVOT Diameter 2.0 cm LV Ejection Fraction 2D Teich 56.5 % LV Ejection Fraction MOD 2C 61.2 % LV Ejection Fraction 2C AL 61.3 % LA Diameter 3.4 cm Aorta at Sinotubular Diameter 2.6 cm IVC Diameter 1.6 cm M-MODE Aortic Annulus Diameter 3.9 cm LA Ao Ratio MM 1.1 MV E Point Septal Separation 0.9 cm DOPPLER AV Peak Velocity 126.0 cm/s LVOT Peak Velocity 104.0 cm/s AV Area Cont Eq vti 2.6 cm squared AV Area Cont Eq pk 2.6 cm squared MV Area PHT 5.0 cm squared Mitral E to A Ratio 1.0 MV E' Velocity 44.5 cm/s Mitral E to MV E' Ratio 5.6 Mitral E to LV E' Lateral Ratio 4.5 Mitral E to LV E' Septal Ratio 7.3 TR Peak Velocity 155.3 cm/s TR Peak Gradient 9.6 mmHg TV Peak E Velocity 88.0 cm/s Right Atrial Pressure 3.0 mmHg Pulmonary Artery Systolic Pressu 12.6 mmHg RV Acceleration Time 0.1 s FINDINGS Left Ventricle Normal left ventricular size and systolic function, EF 65 %. No regional wall motion abnormalities. Right Ventricle Normal right ventricular size and systolic function. Right Atrium The right atrium is normal in size. Left Atrium The left atrium is normal in size. Mitral Valve Trace mitral valve regurgitation. Aortic Valve Structurally normal aortic valve without significant sclerosis or stenosis. There is no aortic regurgitation. Tricuspid Valve Trace to mild tricuspid valve regurgitation. Pulmonic Valve Structurally normal pulmonic valve. Pericardium No pericardial effusion. Aorta Normal aortic annulus size. IVC Normal inferior vena cava. CONCLUSIONS Normal left ventricular size and systolic function, EF 65 %. No regional wall motion abnormalities. Trace to mild tricuspid valve regurgitation. Trace mitral valve regurgitation. There is no pericardial effusion. Pulmonary artery systolic pressure is within normal limits. There are no intracardiac masses. No similar previous studies are available for comparison. Dr Sarah Schreiber MD [facility] (Electronically Signed) Final Date: 16 March 2022 18:37 S
== END 2022-03-16 06:03 | disposition home or self-care (01) ==
LOC: RAD 06:03
PROVIDERS: PCP Family Medicine; Visit Provider Internal Medicine Cardiovascular Disease
DX: R94.31 Abnormal electrocardiogram [ECG] [EKG] (principal); I08.1 Rheumatic disorders of both mitral and tricuspid valves
CPT/HCPCS: 93306

== ENCOUNTER 2022-04-28 13:27 | Observation (INO) | payer MEDICARE, MEDICAID, SELFPAY ==
[2021-07-01 15:36] VITALS: BP 120/77; BMI 30.7
[2022-04-24 09:25] VITALS: BMI 29.9
[2022-04-28] VITALS (31 sets, daily range): BP systolic 95–127; BP diastolic 45–74; PULSE 65–103; RESP 12–21; TEMP 36.4–37; O2SAT 90–97; BMI 29.9
[2022-04-28] MEDS: sodium chloride 0.9% 1,000 ML 30 ML IV (06:56)
--- NOTE | 2022-04-28 07:56 | P.ANESASSM_ITS ---
Pre-Anesthetic Assessment Height/Weight: Height 1.73 m Weight 89.358 kg Temp Pulse Resp BP Pulse Ox O2 Del Method 97.6 F 103 H 18 114/70 97 04/28/22 06:43 04/28/22 06:43 04/28/22 06:43 04/28/22 06:43 04/28/22 06:43 04/28/22 06:27 Preop Diagnosis: Right distal ureteral stone w/UTI Operation Date: 04/28/22 07:40 Proposed Procedures p Left Hemithyroidectomy 09100,(Left) - Dane Willett MD Familial anesthetic complications: none Was Beta Ete taken within 24 hours: N/A Was Clonidine taken within 24 hours: N/A Last intake: Intake Last Liquid Date 04/27/22 Last Liquid Time 20:00 Last Solid Date 04/27/22 Last Solid Time 20:00 Social No alcohol and No tobacco Exam alert, oriented x 3, clear to auscultation bilaterally and regular rate & rhythm Airway Submandibular: within normal limits Cervical ROM: within normal limits Mallampati: Class III Dentition: chipped CV/HEM Hypertension Hepatic MÉNDEZ Metabolic Diabetes Mellitus and Thyroid Disease Neuropsych Anxiety and Depression Anesthetic Plan ASA status: 3 Anesthesia: General Medications/Allergies Home Medications Medication Instructions Recorded Confirmed Last Taken Type testosterone cypionate 200 mg/mL 100 mg SUBCUT .Every 2 weeks 05/08/20 04/28/22 2 Weeks Ago History intramuscular oil ~04/14/22 cholecalciferol (vitamin D3) 50 2,000 unit PO DAILY #30 tabs 10/29/20 04/28/22 04/27/22 Rx mcg (2,000 unit) tablet chlorpheniramine maleate 4 mg 4 mg PO Q6H PRN Allergy Symptoms 02/25/21 04/28/22 04/27/22 Rx tablet (ChlorTabs) #60 tabs lisinopril 10 mg tablet 10 mg PO DAILY 05/13/21 04/28/22 04/27/22 History hydroxychloroquine 200 mg tablet 200 mg PO BID 07/16/21 04/28/22 2 Days Ago History (Plaquenil) ~04/26/22 haloperidol 5 mg tablet 2.5 mg PO BID PRN 01/28/22 04/28/22 Unknown Rx anxiety/agitation #30 tabs bupropion HCl 300 mg 24 hr tablet, 300 mg PO DAILY #30 tabs 04/03/22 04/28/22 04/27/22 Rx extended release (Wellbutrin XL) Allergies Allergy/AdvReac Type Severity Reaction Status Date / Time fenofibrate Allergy Intermediate blisters Verified 04/28/22 06:23 Penicillins Allergy Unknown swelling Verified 04/28/22 06:23 prazosin Allergy Unknown Unknown Verified 04/28/22 06:23 diazepam [From Valium] Allergy Unknown Verified 04/28/22 06:23 sulfasalazine AdvReac Mild nausea Verified 04/28/22 06:23 vomiting sertraline [From Zoloft] AdvReac panic Verified 04/28/22 06:23 attacks Current Medications Generic Name Dose Route Start Last Admin Trade Name Freq PRN Reason Stop Dose Admin Sodium Chloride 1,000 mls @ 30 mls/hr 04/28/22 06:45 04/28/22 06:56 Sodium Chloride 0.9% IV 04/29/22 06:44 30 mls/hr .Q24H EFREN Administration PFSH Anesthesia Medical History Acute gastritis without bleeding Biliary dyskinesia Cholelithiasis Chronic joint pain Chronic post-traumatic stress disorder Dissociative identity disorder Elevated hemoglobin Elevated testosterone level Enrolled in chronic care management [id number] transgender person Generalized anxiety disorder High risk medication use Hypothyroidism Immunization counseling Inflammatory arthritis Major depressive disorder, recurrent episode with anxious distress MÉNDEZ (nonalcoholic steatohepatitis) Obstructive sleep apnea DAVONTE on CPAP Psychiatric care Psychiatric care Reactive arthritis Teresa's syndrome Urinary tract infection Vitamin D deficiency Surgical History H/O bilateral breast reduction surgery H/O rhinoplasty H/O thyroidectomy H/O: hysterectomy Family History Mother , at age 86 Cancer Breast/skin Urinary tract infection COPD (chronic obstructive pulmonary disease) Lung disease Father , late 80s Diabetes Grandmother Stroke Family/Other Suicide Denies family history of CAD (coronary artery disease) Clotting disorder Dementia Chronic kidney disease (CKD) Anesthesia complication Bleeding disorder Social History Smoking and tobacco status: never smoked Alcohol intake: never Adopted: No Caregiver/support person: No Lives independently: Yes Household members: none Housing: House Marital status: Number of children: 0 Number of grandchildren: 0 Highest education level completed: Master's Degree Education level details: in 5 weeks will have Current occupational status: student and disabled Pets and animals: Yes (service dog and cat) Pets & animals: cat(s) and dog(s) History of recent travel: No Leisure activites: music, reading and other Leisure activities details: woodwork Current gender identity: Trans [id number] Leticia/Rastafari: Wicca Special leticia needs: No Agree to transfusion: Yes Financial difficulty paying for basics: Somewhat Hard Data Anesthesia Cardiac Studies: Echocardiogram 03/16/22 Sestamibi Stress Test (Cardiology) 03/11
[2022-04-28] MEDS: clindamycin 900 MG/50 ML PREMIX 100 MG IV (08:45)
[2022-04-28] MEDS: ceFAZolin 1,000 mg SDV 1000 MG IRRIGATION (08:49)
[2022-04-28] MEDS: EPINEPHrine 1 mg/mL INJ 6 MG XX (08:49)
[2022-04-28] MEDS: fluorescein 1 mg Strip 2 MG XX (08:49)
[2022-04-28] MEDS: thrombin 5,000 unit SDV 5000 UNIT XX ×6 (09:00→09:25)
[2022-04-28] MEDS: neomycin-poly-bacitracin oint 28 gm 28 APPLIC (11:38)
--- NOTE | 2022-04-28 11:50 | PM.OP ---
Operative Report Date of procedure: April 28, 2022 Pre-op diagnosis: Preop Diagnosis Left thyroid lobe symptomatic goiter Post-op diagnosis: same Post-op diagnosis: - Symptomatic left thyroid goiter - H/O prior thyroid surgery with extensive scarring of the left thyroid lobe to the surrounding tissues - Left recurrent laryngeal nerve identified splayed out (approximately 1.5 cm wide) over the lateral left thyroid lobe - O/W Normal left thyroid/tracheoesophageal groove exam Post-op findings: See the above Procedure done: Attempted left thyroid lobectomy - abandoned because of the unfavorable position of the left recurrent laryngeal nerve Implants: None Specimens removed/disposition: Left thyroid remnants Pathology: Left thyroid remnants Surgeon: Dane Willett Archeology Faculty Member: Chely Moise Archeology Faculty Member: Leisa Noriega Anesthesia: General Estimated blood loss (mL): 500 IV fluids (mL): 1,100 IV fluids: 250 mL of Albumin Urine output (mL): 650 Complications: Surgery abandoned prior to completion because of the unfavorable/high risk configuration of the left recurrent laryngeal nerve Findings: - Extensive scarring of the left thyroid lobe to the surrounding tissues - Extremely friable left thyroid lobe - Left recurrent laryngeal nerve splayed out/thinned over the lateral left thyroid lobe Condition: stable Disposition: PACU Brief History: 52 yo wm with a h/o a symptomatic left thyroid goiter who desires surgical therapy. Procedure: The patient was identified in the preop holding area and was taken to the operating room where he was placed on the operating table in the supine position. Anesthesia was obtained with general endotracheal anesthesia with the Nirvana nerve monitoring electrode on the endotracheal tube. The thyroidectomy incision was then marked out on the patient over the prior thyroidectomy scar and he was injected with local anesthesia. The patient was then prepped and draped in the usual sterile fashion. The incision was made with a 15 blade was carried down through the subcutaneous tissues until the sternocleidomastoid muscle and strap muscles were identified. At this point attention was turned to the left thyroid lobe which was identified by palpation - the midline airway and a large mass in the left tracheoesophageal groove were identified. At this point a circumferential dissection was begun around the left thyroid lobe with the nerve monitoring hemostat. There was extensive scarring of the left thyroid lobe to the surrounding tissues and airway with significant bleeding being encountered. As the dissection proceeded, the left thyroid lobe was found to be extending posteriorly to the prevertebral fascia and down into the upper mediastinum. The left vagus nerve was stimulated with the Neurvana stimulating hemostat and the circuit was found to be intact. The dissection proceeded in a circumferential fashion with some difficulty until the left recurrent laryngeal nerve was identified over the posterior lateral aspect of the thyroid lobe -the left recurrent laryngeal nerve was found to be splayed out in a paper thin fashion over the lateral aspect of the left thyroid lobe just inferior to the most lateral extent of the left lobe with multiple individual strands of the nerve being identified and visible. At this point I did not feel that it was possible to excise the patient's left thyroid mass without extreme risk to the recurrent laryngeal nerve with permanent paralysis. At this point, the vagus nerve was stimulated with the Neurvana hemostat and found to be non responsive - as no stimulating tissue had been cut, any neurapraxia was thought to be most likely temporary at this point. Therefore the procedure was abandoned and hemostasis was achieved with a combination of bipolar cautery and thrombin-soaked Gelfoam. A drain was placed in the wound and the wound was closed with interrupted 4-0 Monocryl sutures subcu and running 5-0 Prolene on tje skin. We will discuss treatment options postoperatively to determine the patient's wishes regarding this matter.
[2022-04-28] MEDS: triamcinolone 40 mg/mL SDV IM (12:02)
[2022-04-28] MEDS: ondansetron 2 mg/ML SDV 2 mL 4 MG IVP ×3 (12:04→13:42)
[2022-04-28 12:30] LABS: Glucose Point of Care 125 mg/dL (70-110)
--- NOTE | 2022-04-28 12:30 | PC.NURSE ---
Some nausea relieved with zofran. Coughed up phlegm. mo bleeding noted. No emesis
--- NOTE | 2022-04-28 13:08 | ANE.PACU2 ---
Inpatient post-anesthesia follow up: Airway intact: Yes Vital signs: Temperature 97.9 F Pulse Rate 93 Respiratory Rate 17 Blood Pressure 107/72 Pulse Oximetry 94 Oxygen Delivery Me thod Room Air Oxygen Flow Rate 8 Fraction of Inspir ed Oxygen Hydration adequate: Yes Nausea and vomiting: Yes Pain level: 2 Mental status: Baseline
--- NOTE | 2022-04-28 13:24 | PC.NURSE ---
Patient arrived ICU Room 2 1321. Nauseous, vomited yellow bile, Sweating, SR on monitor O2 at 92% RA, T 97.8. Patient is resting at this time.
[2022-04-28] MEDS: lactated ringers 1,000 ML 100 ML IV ×2 (14:02→23:58)
[2022-04-28] MEDS: famotidine 20 mg/2 mL INJ IVP (15:39)
[2022-04-28] MEDS: metoclopramide 5 mg/mL SDV 2 mL 10 MG IVP (16:07)
[2022-04-28] MEDS: clindamycin 600 MG/50 ML PREMIX 100 MG IV ×2 (16:09→23:51)
--- NOTE | 2022-04-28 17:53 | P.PN_ITS ---
Subjective Subjective: 52 yo patient who is night of surgery s/p an attempt at left thyroid lobectomy that had do be abandoned because of a left recurrent laryngeal nerve that was splayed over the his left thyroid lobe goiter which is a high risk configuration. The patient has experienced significant PONV, but is doing better now. The patient reports that he is 'a little hoarse,' but is o/w doing well. Medications: Reviewed: Yes Vitals/I&O/Wt Last Vital Signs Temp 97.8 F 04/28/22 13:28 Pulse 80 04/28/22 17:02 Resp 12 04/28/22 13:28 BP 102/68 04/28/22 13:28 Pulse Ox 93 04/28/22 16:39 O2 Del Method 04/28/22 16:39 O2 Flow Rate 8 04/28/22 11:55 04/28/22 04/28/22 04/28/22 06:59 14:59 22:59 Intake Total 1150 / 1150 50 / 1200 Output Total 1850 / 1850 40 / 1890 Balance -700 / -700 10 / -690 Weight last 48 hrs Weight 89.358 kg Physical Exam Const: COMMON NORMALS: average body habitus, patient oriented x3 and alert HENMT: COMMON NORMALS: normocephalic, atraumatic and Normal external nose present HEAD & SCALP: normocephalic and atraumatic FACE & SINUS: normal facial exam NOSE: Normal external nose present MOUTH: lip normal and tongue normal Eye: COMMON NORMALS: EOMs intact bilaterally, conjunctivae normal and no scleral icterus CONJUNCTIVA: Yes conjunctivae normal Neck/C-Spine: COMMON NORMALS: full ROM, no lymphadenopathy and supple GENERAL: Yes trachea midline and Yes other (The neck wound is intact without swelling. ) Chest: COMMONS NORMALS: normal inspection of the chest Resp: COMMON NORMALS: normal respiratory effort, No retractions and No use of accessory muscles Cardio: COMMON NORMALS: regular rate, regular rhythm and No murmurs present (Cardio) RATE: regular rate RHYTHM: regular rhythm GI: COMMON NORMALS: Normal to inspection, nondistended, normoactive bowel sounds present Extremity: COMMON NORMALS: normal to inspection Neuro: COMMON NORMALS: patient oriented x3 SENSORIUM/ORIENTATION: Yes alert Urinary Catheter Management: Khalil: Cath Placed During This Visit: yes, but has since been removed by the nurse Urinary Catheter Date of Insertion: 04/28/22 Urinary Catheter Time of Insertion: 08:45 Date Urinary Catheter Removed: 04/28/22 Time Urinary Catheter Discontinued: 11:40 A&P Assessment and plan (1) Goiter diffuse, adenomatous: Impression: h/o symptomatic left sided thyroid goiter who is doing well s/p an aborted left hemithyroidectomy. The patient is doing well. Plan: - Overnight ICU observation - Advance to a regular diet - Medical therapy for PONV - Resume all preop medications - I anticipate d/c in the morning Attestations Medical Necessity Statement*: The patient requires overnight observation of his airway Coding Level of Care Code Acute Mineral Surveying Technician for [facility] Fwd Diagnoses Goiter diffuse, adenomatous E04.0
[2022-04-28] MEDS: hydroxychloroquine 200 mg Tablet PO (17:59)
[2022-04-28] MEDS: docusate sodium 100 mg Capsule PO (17:59)
[2022-04-28] MEDS: dexamethasone 4 mg/mL INJ 8 MG IVP ×2 (17:59→23:53)
[2022-04-29] VITALS (30 sets, daily range): BP systolic 90–128; BP diastolic 47–78; PULSE 65–120; RESP 15–22; TEMP 37.3; O2SAT 89–95
[2022-04-29 01:50] LABS: Basophils % 0.1 %; Hematocrit 34.8 % (42.0-52.0); Hemoglobin 11.8 g/dL (11.7-16.6); Lymphocytes # 0.8 10^3/uL (0.8-4.8); Lymphocytes % 6.7 %; Mean Corpuscular HGB Conc 33.9 g/dL (30.0-36.0); Mean Corpuscular Hemoglobin 31.1 pg (28.0-34.0); Mean Corpuscular Volume 91.6 fl (80-94); Mean Platelet Volume 9.4 fL (7.4-10.4); Monocytes # 0.3 10^3/uL (0.2-0.9); Monocytes % 2.7 %; Neutrophils # 10.95 10^3/uL (1.8-7.7); Neutrophils % 90.1 %; Nucleated Red Blood Cells % 0 %; Platelet Count 187 10^3/cmm (130-400); Red Cell Distribution Width 11.4 % (12.1-15.1); White Blood Count 12.2 10^3/uL (4.0-10.0)
[2022-04-29] MEDS: famotidine 20 mg/2 mL INJ IVP ×2 (01:54→13:53)
--- NOTE | 2022-04-29 04:36 | PM.PN ---
Subjective Subjective: 52 yo wm who is POD #1 s/p attempted left hemithyroidectomy. The patient is doing well by report. He is taking po well, and there are no c/o about his neck wound. Medications: Reviewed: Yes Vitals/I&O/Wt Last Vital Signs Temp 99.1 F 04/29/22 02:02 Pulse 85 04/29/22 00:00 Resp 17 04/29/22 00:00 BP 90/47 04/29/22 00:00 Pulse Ox 91 04/29/22 00:00 O2 Del Method 04/28/22 16:39 O2 Flow Rate 8 04/28/22 11:55 04/28/22 04/28/22 04/29/22 14:59 22:59 06:59 Intake Total 1150 / 1150 790 / 1940 1043.333 / 2983.333 Output Total 1850 / 1850 80 / 1930 1974 Balance -700 / -700 710 / 10 998.333 / 1008.333 Weight last 48 hrs Weight 89.358 kg Physical Exam Const: ORIENTATION/CONSCIOUSNESS: Yes Other orientation findings (The patient is sleeping quietly.) HENMT: COMMON NORMALS: normocephalic, atraumatic and Normal external nose present HEAD & SCALP: normocephalic and atraumatic FACE & SINUS: normal facial exam NOSE: Normal external nose present MOUTH: lip normal Neck/C-Spine: COMMON NORMALS: no lymphadenopathy and supple THYROID: other (The thyroid area wound is intact and without swelling.) Resp: COMMON NORMALS: normal respiratory effort, No retractions, No use of accessory muscles and clear to auscultation bilaterally AUSCULTATION: clear to auscultation bilaterally Cardio: COMMON NORMALS: regular rate, regular rhythm and No murmurs present (Cardio) RATE: regular rate RHYTHM: regular rhythm Extremity: COMMON NORMALS: normal to inspection Urinary Catheter Management: Khalil: Cath Placed During This Visit: yes, but has since been removed by the nurse Urinary Catheter Date of Insertion: 04/28/22 Urinary Catheter Time of Insertion: 08:45 Date Urinary Catheter Removed: 04/28/22 Time Urinary Catheter Discontinued: 11:40 Data 04/29/22 01:35 A&P Assessment and plan (1) Goiter diffuse, adenomatous: Impression: POD #1 s/p attempted left hemithyroidectomy doing well Plan: - Observe in the ICU today - Anticipate d/c this afternoon - Regular diet - Continue closed suction diet - Resume all preop medications Attestations Medical Necessity Statement*: The patient requires observation of his airway and neck wound. Coding Level of Care Code Acute Call Center Support Consultant for [facility] Fwd Diagnoses Goiter diffuse, adenomatous E04.0
[2022-04-29] MEDS: dexamethasone 4 mg/mL INJ 8 MG IVP ×2 (06:10→11:10)
[2022-04-29] MEDS: lisinopril 10 mg Tablet PO (08:23)
[2022-04-29] MEDS: buPROPion XL (24 HR) 300 mg Tablet PO (08:23)
[2022-04-29] MEDS: hydroxychloroquine 200 mg Tablet PO (08:23)
[2022-04-29] MEDS: cholecalciferol (vitamin D3) 1,000 unit Tablet 2000 UNIT PO (08:23)
[2022-04-29] MEDS: docusate sodium 100 mg Capsule PO (08:23)
--- NOTE | 2022-04-29 10:37 | PC.CHAP ---
Pastoral Care Encounter/Spiritual Assessment Type of Contact [] Declined channel worker visit [] Patient/Family/Request visit [] Outpatient visit [] Follow-up visit [] Physician referral [] Code/Alert [x] Routine visit [] Staff referral [] Actively dying [] Patient sleeping [] Family support [] [] Out of room [] Palliative care [] [] Receiving care in room [] Pre-surgical visit [] Trauma [] Long length of stay [x] ICU visit [] Other: Relational/Emotional Strength [] Patient feels connected with others/family/visitors/staff [] Distress [] Loneliness/isolation [] Abandonment Spirituality of Patient [] Person of Leticia [] Attends Adventist of their Leticia [] Believes in Prayer [] Reads Bible or Baptism materials [] There are Spiritual issues to be addressed Construction Laborer Interventions [x] Prayer [] Active listening [] Non-anxious presence [] Spiritual/emotional support [] Crisis/trauma care [] Spiritual counseling [] Bereavement support [] Provided bereavement packet [] Provided Bible/devotional materials [] Provided toy/stuffed animal, coloring book to patient or family member [] Provided Communion [] Anointing/Dresher [] Salvation [x] Completed spiritual assessment [] Other: Impact on Illness or Injury [] Angry [] Fearful [] Anxious [] Often cries [] Exhaustion [] Unable to work [] Unable to attend jehovah's witness [] Unable to walk/stand [] Unable to read [] Unable to drive [] Unable to eat/drink [] Unable to sleep [] Unable to be with family [] Patient intubated [] Other: Summary Time spent with patient
[2022-04-29] MEDS: diphenhydrAMINE 25 mg Capsule PO (11:10)
--- NOTE | 2022-04-29 14:53 | PM.PN ---
Subjective Subjective: 52 yo patient with a h/o a symptomatic goiter on the left who underwent an attempt at a left hemithyroidectomy that was ultimately abandoned because of a high risk configuration of the left recurrent laryngeal nerve. The patient reports that his post voice is unchanged from preop. The patient is o/w without c/o. Medications: Reviewed: Yes Vitals/I&O/Wt Last Vital Signs Temp 99.1 F 04/29/22 02:02 Pulse 107 H 04/29/22 12:30 Resp 17 04/29/22 08:00 BP 108/61 04/29/22 12:30 Pulse Ox 95 04/29/22 12:30 O2 Del Method 04/29/22 09:23 O2 Flow Rate 8 04/28/22 11:55 04/28/22 04/29/22 04/29/22 22:59 06:59 14:59 Intake Total 790 / 1940 1293.333 / 3233.333 1423.332 / 1423.332 Output Total 80 / 1930 2014 60 / 60 Balance 710 / 10 1208.333 / 7570.433 6624.332 / 1363.332 Weight last 48 hrs Weight 89.358 kg Physical Exam Const: COMMON NORMALS: no acute distress, patient oriented x3 and alert HENMT: COMMON NORMALS: normocephalic, atraumatic and Normal external nose present HEAD & SCALP: normocephalic and atraumatic FACE & SINUS: normal facial exam NOSE: Normal external nose present Eye: COMMON NORMALS: Equal, round and reactive pupils present and conjunctivae normal CONJUNCTIVA: Yes conjunctivae normal PUPIL: Yes Equal, round and reactive pupils present Neck/C-Spine: COMMON NORMALS: full ROM, no lymphadenopathy and supple THYROID: other (The patient's anterior neck wound is clean without swelling.) Lymph: LYMPHATIC: no lymphadenopathy noted Chest: COMMONS NORMALS: normal inspection of the chest Resp: COMMON NORMALS: normal respiratory effort, No retractions, No use of accessory muscles and clear to auscultation bilaterally AUSCULTATION: clear to auscultation bilaterally Cardio: COMMON NORMALS: regular rate, regular rhythm and No murmurs present (Cardio) RATE: regular rate RHYTHM: regular rhythm GI: COMMON NORMALS: Normal to inspection, nondistended, normoactive bowel sounds present Extremity: COMMON NORMALS: normal to inspection Neuro: COMMON NORMALS: patient oriented x3 SENSORIUM/ORIENTATION: Yes alert Urinary Catheter Management: Khalil: Cath Placed During This Visit: yes, but has since been removed by the nurse Urinary Catheter Date of Insertion: 04/28/22 Urinary Catheter Time of Insertion: 08:45 Date Urinary Catheter Removed: 04/28/22 Time Urinary Catheter Discontinued: 11:40 Data 04/29/22 01:35 A&P Assessment and plan (1) Goiter diffuse, adenomatous: Impression: POD #1 s/p attempted left hemithyroidectomy doing well with normal post op voice Plan: - D/C to home - Resume all preop medications - [place] () tabs: take 1-2 tabs po Q5 hours prn pain, #25, NR - Apply QING to neck wound TID - Use LUIS drain as instructed - F/U in Dr. Willett's office on 05/01/22 @ 1300 hours - Notify Dr. Willett for any problems Attestations Medical Necessity Statement*: The patient required overnight observation of his airway Coding Level of Care Code Acute Maintenance Technician 3Rd Shift for [facility] Fwd Diagnoses Goiter diffuse, adenomatous E04.0
--- NOTE | 2022-04-29 15:14 | PC.NURSE ---
Patient received discharge orders from Dr. Willett, All IVs removed, catheter tip intact. LUIS drain left in place. All discharge instructions and prescriptions given to patient who verbalized understanding. Patient will exit facility via W/C
--- NOTE | 2022-04-29 15:36 | PC.NURSE ---
Patient left [id number]
== END 2022-04-29 15:37 | disposition home or self-care (01) ==
LOC: ICU 04-29 02:10
PROVIDERS: Admitting Provider Specialist; PCP Family Medicine; Visit Provider Specialist
PROC: (CPT 60210; principal; 2022-04-28 07:30)
DX: E04.0 Nontoxic diffuse goiter (principal); Z53.8 Procedure and treatment not carried out for other reasons; I10 Essential (primary) hypertension; E11.9 Type 2 diabetes mellitus without complications; G47.33 Obstructive sleep apnea (adult) (pediatric)
CPT/HCPCS: 60210; 12345; 36415; 36416; 51702; 82962; 85025; 88307; G0378; J0171; J0330; J0690; J1100; J1170; J2250; J2405; J2704; J2765; J3010; J3301; J3490; J7030; J7120; P9045

== ENCOUNTER 2022-05-12 12:48 | Outpatient (CLI) | payer MEDICARE, MEDICAID, SELFPAY ==
[2021-07-01 15:36] VITALS: BP 120/77; BMI 30.7
--- NOTE | 2022-05-12 13:01 | XR_ITS ---
WS: [id number] KUB, AP view, 05/12/2022 Clinical Data: Ureteral Calculus Comparison: None. Findings: No abnormal intraabdominal masses or calcifications are seen. There is no dilatated small bowel or ev idence of obstruction. There is a large amount of fecal material present. There are phleboliths in the true pelvis but a def inite ureteral calculus is not seen. There are clips in the right upper quadrant from a cholecystecto my. XR/XR KUB [id number] Impression: Negative KUB.
== END 2022-05-12 12:49 | disposition home or self-care (01) ==
LOC: RAD 12:52
PROVIDERS: PCP Family Medicine; Visit Provider Urology
DX: N20.1 Calculus of ureter (principal); N39.0 Urinary tract infection, site not specified
CPT/HCPCS: 74018; 81003; 99213

== ENCOUNTER → 2022-06-02 09:22 | Outpatient (BNVA) | payer MEDICARE, MEDICAID, SELFPAY ==
[2021-07-01 15:36] VITALS: BP 120/77; BMI 30.7
== END ==
PROVIDERS: PCP Family Medicine; Visit Provider Nurse Practitioner Psychiatric/Mental Health
DX: Z79.899 Other long term (current) drug therapy (principal)
CPT/HCPCS: 80053; 80061; 83036

== ENCOUNTER → 2022-07-28 10:33 | Outpatient (BNVA) | payer MEDICARE, MEDICAID, SELFPAY ==
[2021-07-01 15:36] VITALS: BP 120/77; BMI 30.7
== END ==
PROVIDERS: PCP Family Medicine; Visit Provider Internal Medicine Cardiovascular Disease
DX: R94.31 Abnormal electrocardiogram [ECG] [EKG] (principal); E11.9 Type 2 diabetes mellitus without complications; G47.33 Obstructive sleep apnea (adult) (pediatric); I10 Essential (primary) hypertension
CPT/HCPCS: 99214

== ENCOUNTER 2022-08-26 15:21 | Outpatient (CLI) | payer MEDICARE, MEDICAID, SELFPAY ==
[2021-07-01 15:36] VITALS: BP 120/77; BMI 30.7
--- NOTE | 2022-08-26 15:37 | XR_ITS ---
WS: [id number] XR ankle LT 2V [id number] REASON FOR EXAM: ANKLE PAIN, LEFT FINDINGS: No fracture or focal bone lesion. Ankle mortise is intact and somewhat narrowed. On the lateral view there appears to be a significant narrowing of the tibiotalar joint space with subchondral sclerosis and small osteophytosis. XR/XR ankle LT 2V [id number] IMPRESSION: Osteoarthritis of the left ankle joint.
== END 2022-08-26 15:22 | disposition home or self-care (01) ==
PROVIDERS: PCP Family Medicine; Visit Provider Nurse Practitioner Family
DX: M19.072 Primary osteoarthritis, left ankle and foot (principal)
CPT/HCPCS: 73600

== ENCOUNTER 2022-11-01 10:12 | Emergency (ER) | payer MEDICARE, MEDICAID, SELFPAY ==
[2021-07-01 15:36] VITALS: BP 120/77; BMI 30.7
[2022-11-01 10:26] VITALS: BP 135/91; PULSE 102; RESP 18; TEMP 36.9; O2SAT 96; BMI 33.1
--- NOTE | 2022-11-01 10:40 | ED_ITS ---
HPI - Animal Bite General: Chief Complaint: Animal Bite Stated Complaint: Dog bite, right inner leg Time Seen by Provider: 11/01/22 10:27 History of Present Illness: Patient is a 52-year-old male comes to the ED with dog bite to right thigh. Injury occurred just prior to arrival. Patient says his service dog was attacked by another dog. He was trying to break up the fight and his dog accidentally bit his right thigh. He has 2 small lacerations to right thigh he says his dog is up-to-date on all his vaccinations including rabies vaccine. Patient says he is up-to-date on his tetanus. Associated symptoms: Deny chills, fever(s) or headache(s) Review of Systems Const: Denies: fever(s), chills or fatigue Eyes: Denies: change in vision or eye discomfort ENMT: Denies: throat pain, odynophagia, nasal discharge or nasal congestion Card: Denies: chest pain, palpitations, edema, swelling of feet/ankles, dyspnea on exertion or orthopnea Resp: Denies: dyspnea, productive cough or non-productive cough GI: Denies: abdominal pain, nausea, vomiting, diarrhea, constipation or hematochezia : Denies: flank pain, difficulty urinating, dysuria or hematuria Musc: Denies: neck pain, back pain or extremity swelling Skin/Breast: Reports: new lesions (Dog bite laceration to right thigh); Denies: rash Neuro: Denies: headache(s), numbness in extremities or weakness in extremities [facility] ED PFSH: Medical History (Updated 11/01/22 @ 10:51 by RONNI Cartwright) Acute gastritis without bleeding Biliary dyskinesia Bladder calculi Cholelithiasis Chronic joint pain Chronic post-traumatic stress disorder Dissociative identity disorder Elevated hemoglobin Elevated testosterone level Enrolled in chronic care management [id number] transgender person Generalized anxiety disorder High risk medication use Hypothyroidism Immunization counseling Inflammatory arthritis Major depressive disorder, recurrent episode with anxious distress MÉNDEZ (nonalcoholic steatohepatitis) Obstructive sleep apnea DAVONTE on CPAP Psychiatric care Psychiatric care Reactive arthritis Teresa's syndrome Surgical site infection Urolithiasis Multi stone former. Right distal ureteral stone required endoscopic treatment December 2021 Vitamin D deficiency Surgical History H/O bilateral breast reduction surgery H/O rhinoplasty H/O thyroidectomy H/O: hysterectomy History of colonoscopy (~01/2020) History of esophagogastroduodenoscopy (EGD) (~01/2020) History of facial surgery Family History Mother , at age 86 Cancer Breast/skin Urinary tract infection COPD (chronic obstructive pulmonary disease) Lung disease Father , late 80s Diabetes Grandmother Stroke Family/Other Suicide Denies family history of CAD (coronary artery disease) Clotting disorder Dementia Chronic kidney disease (CKD) Anesthesia complication Bleeding disorder Social History Smoking and tobacco status: never smoked Alcohol intake: never Substance/Drug Use: never Adopted: No Caregiver/support person: No Lives independently: Yes Household members: none Housing: House Marital status: Number of children: 0 Number of grandchildren: 0 Highest education level completed: Master's Degree Education level details: in 5 weeks will have Current occupational status: student and disabled Pets and animals: Yes (service dog and cat) Pets & animals: cat(s) and dog(s) Leisure activites: music, reading and other Leisure activities details: woodwork Do you think of yourself as: Don't Know Current gender identity: Trans [id number] Leticia/Mormon: Wicca Special leticia needs: No Agree to transfusion: Yes Financial difficulty paying for basics: Somewhat Hard Physical Exam Const: COMMON NORMALS: no acute distress, patient oriented x3 and alert HENMT: COMMON NORMALS: normocephalic HEAD & SCALP: normocephalic MOUTH: Normal oral and palatal mucosa present THROAT: posterior oropharynx normal and uvula midline Neck/C-Spine: COMMON NORMALS: supple GENERAL: Yes normal visual inspection Resp: COMMON NORMALS: normal respiratory effort, No retractions, No use of accessory muscles and clear to auscultation bilaterally AUSCULTATION: clear to auscultation bilaterally Cardio: COMMON NORMALS: regular rate, regular rhythm, S1 normal heart sound present, S2 normal heart sound present, No gallops present (Cardio), No clicks present (Cardio), No murmurs present (Cardio) and Peripheral pulses 2+ throughout RATE: regular rate RHYTHM: regular rhythm HEART SOUNDS: S1 normal heart sound present and S2 normal heart sound present PERIPHERAL PULSES: Peripheral pulses 2+ throughout GI: COMMON NORMALS: Normal to inspection, nondistended, normoactive bowel sounds present, Soft to palpation, non-tender and no masses PALPATION: Yes Soft to palpation : COMMON NORMALS: Yes no CVA tenderness BLADDER/KIDNEY EXAM: Yes no CVA tenderness Back/Pelvis: COMMON NORMALS: no CVA tenderness Extremity: COMMON NORMALS: normal to inspection NARRATIVE EXTREMITY EXAM: Right thigh?2 small lacerations wounds that are linear and approximately 0.5cm in length. Neuro: COMMON NORMALS: patient oriented x3 SENSORIUM/ORIENTATION: Yes alert GAIT: Yes Normal gait present Skin: GENERAL SKIN EXAM: dry skin Course Vital Signs: Vital signs: Vital Signs Temperature 98.4 F 11/01/22 10:26 Pulse Rate 97 11/01/22 11:03 Respiratory Rate 20 H 11/01/22 11:03 Blood Pressure 135/91 11/01/22 11:03 Pulse Oximetry 98 11/01/22 11:03 Oxygen Delivery Me thod Room Air 11/01/22 10:26 MDM - Animal Bite Medical Decision Making Patient is a 52-year-old male comes to the ED with dog bite to right thigh. Injury occurred just prior to arrival. Patient says his service dog was attacked by another dog. He was trying to break up the fight and his dog accidentally bit his right thigh. He has 2 small lacerations to right thigh he says his dog is up-to-date on all his vaccinations including rabies vaccine. Patient says he is up-to-date on his tetanus. pt appears in no acute distress. Right thigh?2 small lacerations wounds that are linear and approximately 0.5cm in length. dog bite irrigated with saline and betadine. triple antibiotic oin tment applied along with bandage. Pt dc home with a prescription for augmentin. instructed on how to care for dog bite wound. followup with PCP in 5-7 days. pt understood and agreed with plan. Discharge Plan Discharge Patient Disposition: Home Clinical Impression: Dog bite of right thigh Qualifiers: Encounter type: initial encounter Qualified Code(s): S71.151A - Open bite, right thigh, initial encounter Condition: Stable Prescriptions: New amoxicillin-pot clavulanate 500-125 mg tablet 1 tab PO BID 7 Days Qty: 14 0RF No Action testosterone cypionate 200 mg/mL oil 100 mg SUBCUT .Every 2 weeks cholecalciferol (vitamin D3) 50 mcg (2,000 unit) tablet 2,000 unit PO DAILY Qty: 30 3RF lisinopril 10 mg tablet 10 mg PO DAILY hydroxychloroquine [Plaquenil] 200 mg tablet 200 mg PO BID Rx Instructions: Take one tablet daily for 7 days and if no side effects, increase to twice per day bupropion HCl [Wellbutrin XL] 300 mg tablet extended release 24 hr 300 mg PO DAILY Qty: 90 2RF Rx Instructions: Take one tablet daily haloperidol 5 mg tablet 2.5 mg PO BID PRN (Reason: anxiety/agitation) Qty: 30 3RF Rx Instructions: Take half tablet twice per day as needed for anxiety/agitation doxycycline hyclate 100 mg tablet 100 mg PO BID 7 Days Qty: 14 0RF prednisone 20 mg tablet 20 mg PO DAILY 5 Days Qty: 5 0RF chlorpheniramine maleate [ChlorTabs] 4 mg tablet 4 mg PO Q6H PRN (Reason: Allergy Symptoms) Qty: 60 1RF Discharge Orders: Discharge ED (Routine); Ordered 11/01/22 Ordered By: Carlos Wilkins Referrals: Ely Mejia DO [Primary Care Provider] - Discharge Diet: Regular Discharge Activity: Increase activity as tolerated Patient Instructions: Animal Bite (ED) Activity Restrictions/Additional Instructions: Follow-up with medical provider as directed in the next 5 to 7 days for reevaluation. Clean dog bite wound daily with soap and water then apply thin layer of triple antibiotic ointment over wound and keep covered with bandage. Take medications as prescribed. Return to the ER or your medical provider if condition worsens. Please read and understand discharge instructions. Thank you for choosing [facility] for your healthcare needs today. Please realize this is an emergency room and that we are providing you with a medical screening exam and this may not be complete and all inclusive of all the testing and or work up that you may need to determine your ailment or severity of your illness. It is very important that you follow up as instructed or that you return to the Emergency Department should you have concerns or if your condition changes or worsens in any way. Coding Level of Care Code ED [employer] for Lisseth Zavaleta
[2022-11-01] MEDS: neomycin-poly-bacitracin oint 28 gm 1 APPLIC TOPICAL (10:59)
[2022-11-01 11:03] VITALS: BP 135/91; PULSE 97; RESP 20; O2SAT 98
== END 2022-11-01 11:05 | disposition home or self-care (01) ==
PROVIDERS: Emergency Provider Physician Assistant; PCP Family Medicine
DX: S71.151A Open bite, right thigh, initial encounter (principal); E89.0 Postprocedural hypothyroidism; W54.0XXA Bitten by dog, initial encounter
CPT/HCPCS: 99283; A6446

== ENCOUNTER 2022-11-03 10:17 | Outpatient (CLI) | payer MEDICARE, MEDICAID, SELFPAY ==
[2021-07-01 15:36] VITALS: BP 120/77; BMI 30.7
--- NOTE | 2022-11-03 10:23 | CTR_ITS ---
PROCEDURE INFORMATION: Exam: CT Neck With Contrast Exam date and time: 11/03/2022 10:49 AM Age: 52 years old Clinical indication: Condition or disease; Thyroid disorder; Goiter, non-toxic; Type not specified; Prior surgery; Surgery date: 6+ months; Patient HX: Left side multinodular goiter, difficulty swallowing, talking and breathing. Having surgery next week at [facility] TECHNIQUE: Imaging protocol: Computed tomography of the neck with contrast. Radiation optimization: All CT scans at this facility use at least one of these dose optimization techniques: automated exposure control; mA and/or kV adjustment per patient size (includes targeted exams where dose is matched to clinical indication); or iterative reconstruction. Contrast material: OMNI 350; Contrast volume: 95 ml; Contrast route: INTRAVENOUS (IV); REPORTING DATA: Count of CT and Cardiac NM exams in prior 12 months: This patient has received 2 known CTs and 0 known cardiac nuclear medicine studies in the 12 months prior to the current study. COMPARISON: CT neck w con* [id number] 09/16/2021 2:50 PM RADIATION DOSE METRICS: Total DLP (mGy-cm): 213.47 FINDINGS: Brain: The visible portion of the brain is unremarkable. Pharynx: The nasopharynx is unremarkable. There is no significant pharyngeal tonsillar enlargement. The oropharynx is unremarkable. There is no significant palatine tonsillar enlargement. The hypopharynx is unremarkable. There is no significant lingual tonsillar enlargement. Larynx: The larynx and epiglottis are normal. Prevertebral and retropharyngeal spaces: There is no fluid or edema in the retropharyngeal space. Salivary glands: The parotid glands are normal. The submandibular glands are normal. Thyroid: The thyroid gland is enlarged. The left lobe is asymmetrically larger measuring 4.4 x 3.4 cm axial dimension. Right lobe measures 3.0 x 2.0 axial. There is rightward tracheal deviation without narrowing. There is no substernal extension. Lymph nodes: There is no cervical or supraclavicular lymphadenopathy. Trachea: Rightward tracheal deviation without narrowing due to enlarged left lobe of the thyroid. Lungs: Lung apices are clear. Bones/joints: There is mild degenerative disease in the cervical spine. Vasculature: Visible portions of the dural venous sinuses are patent. Internal jugular veins are patent. The aortic arch is ectatic measuring up to 3.8 cm diameter. Carotid and vertebral arteries are unremarkable. Soft tissues: No edema. Musculature is unremarkable. CT/CT neck w con* [id number] IMPRESSION: 1. Enlarged thyroid gland with rightward tracheal deviation and no airway narrowing. 2. Incidental findings above.
[2022-11-03] MEDS: iohexol 350 mg/mL 500 mL Btl (per mL) IV (10:54)
== END 2022-11-03 10:18 | disposition home or self-care (01) ==
LOC: RAD 10:20
PROVIDERS: PCP Family Medicine; Visit Provider Otolaryngology
DX: E04.2 Nontoxic multinodular goiter (principal); J39.8 Other specified diseases of upper respiratory tract
CPT/HCPCS: 70491; Q9967

== ENCOUNTER 2023-01-20 09:09 | Outpatient (CLI) | payer MEDICARE, MEDICAID, SELFPAY ==
[2021-07-01 15:36] VITALS: BP 120/77; BMI 30.7
--- NOTE | 2023-01-20 09:13 | CT_ITS ---
WS: [id number] CT chest wo con [id number] HISTORY: LUNG NODULES,MULTIPLE TECHNIQUE: Axial imaging performed through the thorax. Coronal and sagittal reformats are submitted. All CT scans at [facility] use at least one of these dose optimization techniques: automated exposure control; mA and/or kV adjustment per patient size (includes targeted exams where dose is mat ched to clinical indication); or iterative reconstruction. CONTRAST: None DLP: 580.03 mGy.cm COMPARISON: 12/19/2020 Lungs and central airway: No pulmonary mass. There is a micronodule LEFT lower lobe which is noncalci fied. No suspicious masses and no pneumonia. Pleura: Normal. No pleural effusion. Heart and pericardium: Normal size heart with no pericardial effusion. Mediastinum and silver: No mediastinum or hilar adenopathy. Vessels: Normal size aortic and pulmonary artery. No coronary artery calcifications. Chest wall and lower neck: No soft tissue masses. Upper abdomen: Prior cholecystectomy. Small hiatal hernia. Hepatic steatosis. Surface of the liver is very slightly nodular which may indicate early changes of cirrhosis. No adrenal mass. Osseous structures: No destructive process. IMPRESSION: 1. No pulmonary mass or pneumonia. 2. Micronodule LEFT lower lobe, no additional follow-up necessary. 3. No adenopathy. 4. Prior cholecystectomy.
== END 2023-01-20 09:10 | disposition home or self-care (01) ==
LOC: RAD 09:09
PROVIDERS: PCP Family Medicine; Visit Provider Family Medicine
DX: R91.8 Other nonspecific abnormal finding of lung field (principal)
CPT/HCPCS: 71250

== ENCOUNTER → 2023-04-02 16:31 | Outpatient (BNVA) | payer MEDICARE, MEDICAID, SELFPAY ==
[2021-07-01 15:36] VITALS: BP 120/77; BMI 30.7
== END ==
PROVIDERS: PCP Family Medicine
DX: M79.672 Pain in left foot (principal)
CPT/HCPCS: 73630

== ENCOUNTER 2023-05-12 22:11 | Emergency (ER) | payer MEDICARE, MEDICAID, SELFPAY ==
[2021-07-01 15:36] VITALS: BP 120/77; BMI 30.7
[2023-05-12 22:12] VITALS: BP 121/80; PULSE 98; RESP 17; TEMP 37.2; O2SAT 95; BMI 33.7
--- NOTE | 2023-05-12 22:20 | XRR_ITS ---
PROCEDURE INFORMATION: Exam: XR Left Wrist Exam date and time: 05/12/2023 10:37 PM Age: 53 years old Clinical indication: Injury or trauma; Fall; Swelling (edema); Wrist; Left; Additional info: Fall, deformity, pain TECHNIQUE: Imaging protocol: Radiologic exam of the left wrist. Views: 3 or more views. COMPARISON: No relevant prior studies available. FINDINGS: Bones/joints: Acute minimally displaced distal radial fracture along the dorsum of the radial metaphysis with avulsion of the ulnar styloid. Carpal rows are grossly intact. Soft tissues: Soft tissue edema, predominantly dorsal. XR/XR wrist LT min 3V* [id number] IMPRESSION: 1. Acute minimally displaced distal radial fracture along the dorsum of the radial metaphysis with avulsion of the ulnar styloid. Orthopedic follow-up is recommended.
--- NOTE | 2023-05-12 22:21 | ED_ITS ---
HPI - Fall General: Chief Complaint: Fall Stated Complaint: fall Time Seen by Provider: 05/12/23 22:17 History of Present Illness: Patient brought into the ER by EMS with complaints of left wrist deformity and pain after a fall slipping on the ice. Patient has good cap refill and a pulse. Patient denies any other injury. Patient did not hit his head there was no loss of consciousness. Review of Systems General: Reports: 10 or more systems reviewed and unremarkable except in HPI and below PFSH ED PFSH: Medical History Bladder calculi Urolithiasis Multi stone former. Right distal ureteral stone required endoscopic treatment December 2021 Surgical site infection Biliary dyskinesia Cholelithiasis Psychiatric care Psychiatric care [id number] transgender person Major depressive disorder, recurrent episode with anxious distress High risk medication use Inflammatory arthritis Reactive arthritis Immunization counseling Obstructive sleep apnea Dissociative identity disorder Generalized anxiety disorder Chronic post-traumatic stress disorder Teresa's syndrome Hypothyroidism Vitamin D deficiency Chronic joint pain Acute gastritis without bleeding MÉNDEZ (nonalcoholic steatohepatitis) Elevated testosterone level Enrolled in chronic care management DAVONTE on CPAP Elevated hemoglobin Surgical History History of facial surgery History of colonoscopy (~01/2020) History of esophagogastroduodenoscopy (EGD) (~01/2020) H/O: hysterectomy H/O bilateral breast reduction surgery H/O thyroidectomy H/O rhinoplasty Family History Mother , at age 86 Cancer Breast/skin Urinary tract infection COPD (chronic obstructive pulmonary disease) Lung disease Father , late 80s Diabetes Grandmother Stroke Family/Other Suicide Denies family history of CAD (coronary artery disease) Clotting disorder Dementia Chronic kidney disease (CKD) Anesthesia complication Bleeding disorder Social History Smoking and tobacco/nicotine status: never used tobacco/nicotine Alcohol intake: never Substance/Drug Use: never Adopted: No Caregiver/support person: No Lives independently: Yes Household members: none Housing: House Marital status: Number of children: 0 Number of grandchildren: 0 Highest education level completed: Master's Degree Education level details: in 5 weeks will have Current occupational status: student and disabled Pets and animals: Yes (service dog and cat) Pets & animals: cat(s) and dog(s) Leisure activites: music, reading and other Leisure activities details: woodwork Do you think of yourself as: Don't Know Current gender identity: Trans [id number] Leticia/Pentecostalism: Wicca Special leticia needs: No Agree to transfusion: Yes Physical Exam Const: COMMON NORMALS: no acute distress, average body habitus, patient oriented x3, no limitations, healthy appearing, alert and well nourished HENMT: COMMON NORMALS: normocephalic, atraumatic, hearing grossly normal bilaterally, external ears normal, EAC's normal, Normal external nose present, moist oral mucous membranes and oropharynx normal HEAD & SCALP: normocephalic and atraumatic NOSE: Normal external nose present EXTERNAL EAR: Yes external ears normal EXTERNAL AUDITORY CANAL: EAC's normal Neck/C-Spine: COMMON NORMALS: no JVD Chest: COMMONS NORMALS: normal inspection of the chest and normal palpation of entire chest wall Resp: COMMON NORMALS: normal respiratory effort, No retractions, No use of accessory muscles and clear to auscultation bilaterally AUSCULTATION: clear to auscultation bilaterally Cardio: COMMON NORMALS: no JVD, regular rate, regular rhythm, S1 normal heart sound present, S2 normal heart sound present, No gallops present (Cardio), No clicks present (Cardio), No murmurs present (Cardio) and No rub (Cardio) RATE: regular rate RHYTHM: regular rhythm HEART SOUNDS: S1 normal heart sound present and S2 normal heart sound present GI: COMMON NORMALS: Normal to inspection, nondistended, normoactive bowel sounds present, Soft to palpation, non-tender, No hepatosplenomegaly present and no masses PALPATION: Yes Soft to palpation and Yes No hepatosplenomegaly present Extremity: NARRATIVE EXTREMITY EXAM: Left wrist swelling, deformity, pain with palpation, Neuro: COMMON NORMALS: patient oriented x3 SENSORIUM/ORIENTATION: Yes alert Course Vital Signs: Vital signs: Vital Signs Temperature 98.9 F 05/12/23 22:12 Pulse Rate 98 05/12/23 22:12 Respiratory Rate 17 05/12/23 22:12 Blood Pressure 121/80 05/12/23 22:12 Pulse Oximetry 95 05/12/23 22:12 Oxygen Delivery Me thod Room Air 05/12/23 22:12 MDM - Fall Medical Decision Making X-ray was obtained of patient's left wrist that did show a distal radial fracture. Patient be placed in a splint and referred to Ortho. Patient was given a shot of Toradol 60 mg IM as well as 1 [place] 08/26/2024 to go home on. Patient will be given a prescription for [place] for pain control. Differential Diagnosis Likely fracture of wrist; Unlikely syncope, dislocation of shoulder region, compression fracture, concussion with loss of consciousness or concussion without loss of consciousness Medical Records I reviewed the patient's medical records. Lab Data I reviewed the patient's lab results. Radiology Impressions Wrist X-Ray 05/12/23 22:20 IMPRESSION: 1. Acute minimally displaced distal radial fracture along the dorsum of the radial metaphysis with avulsion of the ulnar styloid. Orthopedic follow-up is recommended. All radiology interpretation(s) finalized by discharge Discharge Plan Discharge Patient Disposition: Home Clinical Impression: Fracture of left wrist Qualifiers: Encounter type: initial encounter Fracture type: closed Qualified Code(s): S62.102A - Fracture of unspecified carpal bone, left wrist, initial encounter for closed fracture Condition: Stable Prescriptions: New hydrocodone-acetaminophen 5-325 mg tablet 1 tab PO Q6H PRN (Reason: pain) Qty: 14 0RF No Action testosterone cypionate 200 mg/mL oil 100 mg SUBCUT .weekly cholecalciferol (vitamin D3) 50 mcg (2,000 unit) tablet 2,000 unit PO DAILY Qty: 30 3RF lisinopril 10 mg tablet 10 mg PO DAILY hydroxychloroquine [Plaquenil] 200 mg tablet 200 mg PO BID Rx Instructions: Take one tablet daily for 7 days and if no side effects, increase to twice per day levothyroxine 75 mcg capsule 75 mcg PO DAILY Patient Comments: Take one capsule every morning on an empty stomach bupropion HCl [Wellbutrin XL] 150 mg tablet extended release 24 hr 150 mg PO DAILY Qty: 90 2RF Rx Instructions: Take one tablet with 300 mg tab, total dose 450 mg daily bupropion HCl [Wellbutrin XL] 300 mg tablet extended release 24 hr 300 mg PO DAILY Qty: 90 2RF Rx Instructions: Take one tablet daily haloperidol 5 mg tablet 2.5 mg PO BID PRN (Reason: anxiety/agitation) Qty: 30 3RF Rx Instructions: Take half tablet twice per day as needed for anxiety/agitation chlorpheniramine maleate [ChlorTabs] 4 mg tablet 4 mg PO Q6H PRN (Reason: Allergy Symptoms) Qty: 60 1RF Discharge Orders: Discharge ED (Routine); Ordered 05/12/23 Ordered By: Paramjit Shields Referrals: Ely Mejia DO [Primary Care Provider] - Patient Instructions: Wrist Fracture in Adults (ED), Opioid Safety, Pain Management Activity Restrictions/Additional Instructions: Please take all your medicine as directed. Please wear your splint at all times until seen by orthopedics. If your pain worsens or is uncontrolled please feel free to return to the ER or follow-up with your primary care physician for further evaluation and treatment. Coding Level of Care Code ED [employer] for Lisseth Zavaleta
[2023-05-12] MEDS: ketorolac 60 mg/2 mL INJ IM (23:28)
[2023-05-12 23:49] VITALS: BP 134/87; RESP 16; O2SAT 98
--- NOTE | 2023-05-13 12:53 | DCPLANNER ---
Message was sent to ortho on 05/13/23 [id number]. Clinic to contact patient.
== END 2023-05-12 23:58 | disposition home or self-care (01) ==
PROVIDERS: Emergency Provider Emergency Medicine; PCP Family Medicine
DX: S52.502A Unspecified fracture of the lower end of left radius, initial encounter for closed fracture (principal); W00.0XXA Fall on same level due to ice and snow, initial encounter
CPT/HCPCS: 29125; 73110; 96372; 99284; J1885

== ENCOUNTER 2023-05-14 17:50 | Emergency (ER) | payer MEDICARE, MEDICAID, SELFPAY ==
[2021-07-01 15:36] VITALS: BP 120/77; BMI 30.7
[2023-05-14 17:59] VITALS: BP 133/78; PULSE 87; RESP 16; O2SAT 95
--- NOTE | 2023-05-14 20:26 | W.ED.EXTPRO ---
HPI - Extremity Problem General: Chief complaint: Extremity Injury, Upper Stated complaint: broke arm, numbness in fingers and arm Time Seen by Provider: 05/14/23 20:18 Source: patient Mode of arrival: ambulatory Limitations: no limitations History of Present Illness: Patient presents emergency department today for evaluation treatment of acute worsening of pain and swelling in his left arm. Patient had a fracture couple of days ago and was put into a splint here from the emergency department. He states he has been scheduled for follow-up appointment with orthopedics but, this afternoon started noticing increasing pain in his left arm and hand with increased swelling. Patient presents to the ER today without a sling-patient indicates he was not provided 1 when he was here the last time. He still has mobility in his fingers. Review of Systems General: Reports: 10 or more systems reviewed and unremarkable except in HPI and below PFSH ED PFSH: Medical History Bladder calculi Urolithiasis Multi stone former. Right distal ureteral stone required endoscopic treatment December 2021 Surgical site infection Biliary dyskinesia Cholelithiasis Psychiatric care Psychiatric care Bysliz-[id number] transgender person Major depressive disorder, recurrent episode with anxious distress High risk medication use Inflammatory arthritis Reactive arthritis Immunization counseling Obstructive sleep apnea Dissociative identity disorder Generalized anxiety disorder Chronic post-traumatic stress disorder Teresa's syndrome Hypothyroidism Vitamin D deficiency Chronic joint pain Acute gastritis without bleeding MÉNDEZ (nonalcoholic steatohepatitis) Elevated testosterone level Enrolled in chronic care management DAVONTE on CPAP Elevated hemoglobin Surgical History History of facial surgery History of colonoscopy (~01/2020) History of esophagogastroduodenoscopy (EGD) (~01/2020) H/O: hysterectomy H/O bilateral breast reduction surgery H/O thyroidectomy H/O rhinoplasty Family History Mother , at age 86 Cancer Breast/skin Urinary tract infection COPD (chronic obstructive pulmonary disease) Lung disease Father , late 80s Diabetes Grandmother Stroke Family/Other Suicide Denies family history of CAD (coronary artery disease) Clotting disorder Dementia Chronic kidney disease (CKD) Anesthesia complication Bleeding disorder Social History Smoking and tobacco/nicotine status: never used tobacco/nicotine Alcohol intake: never Substance/Drug Use: never Adopted: No Caregiver/support person: No Lives independently: Yes Household members: none Housing: House Marital status: Number of children: 0 Number of grandchildren: 0 Highest education level completed: Master's Degree Education level details: in 5 weeks will have Current occupational status: student and disabled Pets and animals: Yes (service dog and cat) Pets & animals: cat(s) and dog(s) Leisure activites: music, reading and other Leisure activities details: woodwork Do you think of yourself as: Don't Know Current gender identity: Trans [id number] Leticia/Scientology: Wicca Special leticia needs: No Agree to transfusion: Yes Physical Exam Const: COMMON NORMALS: no acute distress, patient oriented x3 and alert HENMT: COMMON NORMALS: normocephalic, atraumatic and hearing grossly normal bilaterally HEAD & SCALP: normocephalic and atraumatic Eye: COMMON NORMALS: Equal, round and reactive pupils present, EOMs intact bilaterally and conjunctivae normal CONJUNCTIVA: Yes conjunctivae normal PUPIL: Yes Equal, round and reactive pupils present Neck/C-Spine: COMMON NORMALS: full ROM and no JVD Lymph: LYMPHATIC: no lymphadenopathy noted Resp: COMMON NORMALS: normal respiratory effort, No retractions and No use of accessory muscles Cardio: COMMON NORMALS: no JVD and regular rate RATE: regular rate Extremity: NARRATIVE EXTREMITY EXAM: Patient has significant swelling of the dorsum of the left hand with bruising which has settled into the posterior aspects of the MCP joints. Forearm musculature is still soft. Patient demonstrates ability to fully flex and extend fingers on the left hand. Neuro: COMMON NORMALS: patient oriented x3 SENSORIUM/ORIENTATION: Yes alert Psych: COMMON NORMALS: mental status grossly normal, Normal thought process present, cooperative and normal affect THOUGHT PROCESS: Normal thought process present Skin: COMMON NORMALS: no rashes or lesions noted and turgor normal GENERAL SKIN EXAM: no rashes or lesions noted and turgor normal Course Vital Signs: Vital signs: Vital Signs Pulse Rate 87 05/14/23 17:59 Respiratory Rate 16 05/14/23 17:59 Blood Pressure 133/78 05/14/23 17:59 Pulse Oximetry 95 05/14/23 17:59 Oxygen Delivery Me thod Room Air 05/14/23 17:59 MDM - Extremity (Nontraumatic) Medical Decision Making Patient splint is most likely causing compression due to increased swelling of the hand due to downward positioning while in the splint. Splint was removed so the entire arm can be visualized. No signs of any discoloration. Musculature of the forearm is soft and patient still has preserved range of motion of the fingers on the left hand. I am not concerned about compartment syndrome. Patient has settling of the bruising distally and said approximately indicating that fluid and swelling has been settling distally due to gravity. Patient splint was replaced and patient was provided a sling at this point. Proper elevation of the arm was discussed. Continue to monitor for any return of pain or decreased mobility of the fingers. Patient should be seen and reevaluated if this occurs otherwise, keep upcoming appointment with orthopedics. Patient verbalizes understanding and agreement to treatment plan. Differential Diagnosis Unlikely herpes zoster, gout, cellulitis, superficial thrombophlebitis, deep venous thrombosis of upper extremity or deep vein thrombosis of lower extremity No radiology studies performed this visit Discharge Plan Discharge Patient Disposition: Home Clinical Impression: Fracture of wrist Condition: Stable Prescriptions: No Action testosterone cypionate 200 mg/mL oil 100 mg SUBCUT .weekly cholecalciferol (vitamin D3) 50 mcg (2,000 unit) tablet 2,000 unit PO DAILY Qty: 30 3RF lisinopril 10 mg tablet 10 mg PO DAILY hydroxychloroquine [Plaquenil] 200 mg tablet 200 mg PO BID Rx Instructions: Take one tablet daily for 7 days and if no side effects, increase to twice per day levothyroxine 75 mcg capsule 75 mcg PO DAILY Patient Comments: Take one capsule every morning on an empty stomach bupropion HCl [Wellbutrin XL] 150 mg tablet extended release 24 hr 150 mg PO DAILY Qty: 90 2RF Rx Instructions: Take one tablet with 300 mg tab, total dose 450 mg daily bupropion HCl [Wellbutrin XL] 300 mg tablet extended release 24 hr 300 mg PO DAILY Qty: 90 2RF Rx Instructions: Take one tablet daily haloperidol 5 mg tablet 2.5 mg PO BID PRN (Reason: anxiety/agitation) Qty: 30 3RF Rx Instructions: Take half tablet twice per day as needed for anxiety/agitation chlorpheniramine maleate [ChlorTabs] 4 mg tablet 4 mg PO Q6H PRN (Reason: Allergy Symptoms) Qty: 60 1RF hydrocodone-acetaminophen 5-325 mg tablet 1 tab PO Q6H PRN (Reason: pain) Qty: 14 0RF Discharge Orders: Discharge ED (Routine); Ordered 05/14/23 Ordered By: Yumi James Referrals: Ely Mejia DO [Primary Care Provider] - Patient Instructions: How to Use a Sling (ED), Sling - Wearing Activity Restrictions/Additional Instructions: After taking off your splint, you most likely have increased swelling and inflammatory accumulation in your hand and finger secondary to positioning of your arm while in your splint. We replaced your splint and have provided you a sling. With the sling, keep your hand elevated at the level of your heart/chest with the elbow pointed downwards. This will help prevent fluid and swelling from accumulating in your hand and fingers causing pain. However, if you continue to have swelling or pain or noticed any decreased mobility of your fingers in your left hand you need to return back to the ER. Otherwise, follow-up with the orthopedic doctor next week for continued management of your fracture. Coding Level of Care Code ED Automobile Damage Appraiser for Lisseth Zavaleta
--- NOTE | 2023-05-14 20:45 | PC.NURSE ---
Splint reapplied to left arm. Pt has movement of fingers and skin is of normal color.
[2023-05-14 21:00] VITALS: BP 130/89; PULSE 77; O2SAT 95
== END 2023-05-14 21:00 | disposition home or self-care (01) ==
PROVIDERS: Emergency Provider Physician Assistant; PCP Family Medicine
DX: S62.102A Fracture of unspecified carpal bone, left wrist, initial encounter for closed fracture (principal); X58.XXXA Exposure to other specified factors, initial encounter
CPT/HCPCS: 99282

== ENCOUNTER 2023-05-15 20:05 | Emergency (ER) | payer MEDICARE, MEDICAID, SELFPAY ==
[2021-07-01 15:36] VITALS: BP 120/77; BMI 30.7
[2023-05-15 20:15] VITALS: BP 130/85; PULSE 89; RESP 18; O2SAT 95; BMI 34.9
--- NOTE | 2023-05-15 21:13 | W.ED.EXTPRO ---
HPI - Extremity Problem General: Chief complaint: Extremity Injury, Upper Stated complaint: broken armc cant feel pinky Time Seen by Provider: 05/15/23 20:13 Source: patient Mode of arrival: ambulatory Limitations: no limitations History of Present Illness: Patient presents emergency department today for complaints of left pinky numbness. I personally saw and evaluated this patient yesterday for similar complaints of left hand and left finger swelling and tingling. Patient has a distal radial fracture which was splinted several days ago. Patient splint was removed yesterday and examination of the arm revealed no signs of compartment syndrome. Patient had not been using a sling and after replacing the splint material yesterday, patient was given a sling with instructions to keep the hand up and elevated. Patient returns tonight stating that his pinky finger is starting to feel numb. He states he has been using the sling as discussed. Review of Systems General: Reports: 10 or more systems reviewed and unremarkable except in HPI and below PFSH ED PFSH: Medical History Bladder calculi Urolithiasis Multi stone former. Right distal ureteral stone required endoscopic treatment December 2021 Surgical site infection Biliary dyskinesia Cholelithiasis Psychiatric care Psychiatric care [id number] transgender person Major depressive disorder, recurrent episode with anxious distress High risk medication use Inflammatory arthritis Reactive arthritis Immunization counseling Obstructive sleep apnea Dissociative identity disorder Generalized anxiety disorder Chronic post-traumatic stress disorder Teresa's syndrome Hypothyroidism Vitamin D deficiency Chronic joint pain Acute gastritis without bleeding MÉNDEZ (nonalcoholic steatohepatitis) Elevated testosterone level Enrolled in chronic care management DAVONTE on CPAP Elevated hemoglobin Surgical History History of facial surgery History of colonoscopy (~01/2020) History of esophagogastroduodenoscopy (EGD) (~01/2020) H/O: hysterectomy H/O bilateral breast reduction surgery H/O thyroidectomy H/O rhinoplasty Family History Mother , at age 86 Cancer Breast/skin Urinary tract infection COPD (chronic obstructive pulmonary disease) Lung disease Father , late 80s Diabetes Grandmother Stroke Family/Other Suicide Denies family history of CAD (coronary artery disease) Clotting disorder Dementia Chronic kidney disease (CKD) Anesthesia complication Bleeding disorder Social History Smoking and tobacco/nicotine status: never used tobacco/nicotine Alcohol intake: never Substance/Drug Use: never Adopted: No Caregiver/support person: No Lives independently: Yes Household members: none Housing: House Marital status: Number of children: 0 Number of grandchildren: 0 Highest education level completed: Master's Degree Education level details: in 5 weeks will have Current occupational status: student and disabled Pets and animals: Yes (service dog and cat) Pets & animals: cat(s) and dog(s) Leisure activites: music, reading and other Leisure activities details: woodwork Do you think of yourself as: Don't Know Current gender identity: Trans [id number] Leticia/Anabaptism: Wicca Special leticia needs: No Agree to transfusion: Yes Physical Exam Const: COMMON NORMALS: no acute distress, patient oriented x3 and alert HENMT: COMMON NORMALS: normocephalic, atraumatic and hearing grossly normal bilaterally HEAD & SCALP: normocephalic and atraumatic Eye: COMMON NORMALS: Equal, round and reactive pupils present, EOMs intact bilaterally and conjunctivae normal CONJUNCTIVA: Yes conjunctivae normal PUPIL: Yes Equal, round and reactive pupils present Neck/C-Spine: COMMON NORMALS: full ROM and no JVD Lymph: LYMPHATIC: no lymphadenopathy noted Resp: COMMON NORMALS: normal respiratory effort, No retractions and No use of accessory muscles Cardio: COMMON NORMALS: no JVD and regular rate RATE: regular rate Extremity: NARRATIVE EXTREMITY EXAM: Patient's forearm musculature is soft. No significant swelling appreciated in the wrist, hand, or fingers. Patient's bruising is much improved from comparison yesterday. Patient with full flexion extension capabilities of the fingers of the left hand. Neuro: COMMON NORMALS: patient oriented x3 SENSORIUM/ORIENTATION: Yes alert Psych: COMMON NORMALS: mental status grossly normal, Normal thought process present, cooperative and normal affect THOUGHT PROCESS: Normal thought process present Skin: COMMON NORMALS: no rashes or lesions noted and turgor normal GENERAL SKIN EXAM: no rashes or lesions noted and turgor normal Course Vital Signs: Vital signs: Vital Signs Pulse Rate 89 01/20/24 20:15 Respiratory Rate 18 05/15/23 20:15 Blood Pressure 130/85 05/15/23 20:15 Pulse Oximetry 95 05/15/23 20:15 MDM - Extremity (Nontraumatic) Medical Decision Making Patient splint was removed again today and left forearm and hand examination was otherwise benign. Discussed ulnar nerve compression and completely new splint material was placed today. Patient is again encouraged to keep the hand up and elevated in the sling. They are to keep the upcoming appointment with a have made with orthopedics. Differential Diagnosis Unlikely herpes zoster, gout, cellulitis, superficial thrombophlebitis or deep venous thrombosis of upper extremity No radiology studies performed this visit Discharge Plan Discharge Patient Disposition: Home Clinical Impression: Fracture of wrist Condition: Stable Prescriptions: No Action testosterone cypionate 200 mg/mL oil 100 mg SUBCUT .weekly cholecalciferol (vitamin D3) 50 mcg (2,000 unit) tablet 2,000 unit PO DAILY Qty: 30 3RF lisinopril 10 mg tablet 10 mg PO DAILY hydroxychloroquine [Plaquenil] 200 mg tablet 200 mg PO BID Rx Instructions: Take one tablet daily for 7 days and if no side effects, increase to twice per day levothyroxine 75 mcg capsule 75 mcg PO DAILY Patient Comments: Take one capsule every morning on an empty stomach bupropion HCl [Wellbutrin XL] 150 mg tablet extended release 24 hr 150 mg PO DAILY Qty: 90 2RF Rx Instructions: Take one tablet with 300 mg tab, total dose 450 mg daily bupropion HCl [Wellbutrin XL] 300 mg tablet extended release 24 hr 300 mg PO DAILY Qty: 90 2RF Rx Instructions: Take one tablet daily haloperidol 5 mg tablet 2.5 mg PO BID PRN (Reason: anxiety/agitation) Qty: 30 3RF Rx Instructions: Take half tablet twice per day as needed for anxiety/agitation chlorpheniramine maleate [ChlorTabs] 4 mg tablet 4 mg PO Q6H PRN (Reason: Allergy Symptoms) Qty: 60 1RF hydrocodone-acetaminophen 5-325 mg tablet 1 tab PO Q6H PRN (Reason: pain) Qty: 14 0RF Discharge Orders: Discharge ED (Routine); Ordered 05/15/23 Ordered By: Yumi James Referrals: Ely Mejia DO [Primary Care Provider] - Activity Restrictions/Additional Instructions: All new splinting material was used to resplint your left wrist. We are attempting to avoid significant compression around your elbow and wrist as this is what seems to be causing the tingling you are feeling in your fingers. Continue to monitor for tingling. Continue to monitor the mobility of your fingers as well. Keep your upcoming appointment with orthopedics. Coding Level of Care Code ED Button Tufting Machine Operator for Lisseth Zavaleta
--- NOTE | 2023-05-15 21:58 | PC.NURSE ---
Pt. splint removed and replaced with sugar tong splint. Pt. has full range of motion to hand and fingers. Immediately after splint placed pt. asks if it should feel better immediately.
--- NOTE | 2023-05-15 22:11 | PC.NURSE ---
Went in to discharge patient and he states that he want to talk to the doctor first. Pt. states that his pinky is still numb. Pt. states that it has been numb for an hour after the new splint was placed, but the splint had only been on for about 15 minutes. Jacob RUDOLPH , came into assess the splint and states that the splint is new and placed appropriately and does not think that it is causing any numbness. The patient then states , oh , so I am just supposed to wait a week with pain in my pinky and be unable to use this hand ! Jacob asked if it is numb or hurting. The patient states oh, it's hurting now! . Jacob explained that the splint should not be causing his pain in his pinky, and that he needed to complete his follow up with orthopedic doctor.
== END 2023-05-15 23:36 | disposition home or self-care (01) ==
PROVIDERS: Emergency Provider Physician Assistant; PCP Family Medicine
DX: S52.502A Unspecified fracture of the lower end of left radius, initial encounter for closed fracture (principal); X58.XXXA Exposure to other specified factors, initial encounter
CPT/HCPCS: 99281

== ENCOUNTER → 2023-06-26 18:07 | Outpatient (BNVA) | payer MEDICARE, SELFPAY ==
[2021-07-01 15:36] VITALS: BP 120/77; BMI 30.7
== END ==
PROVIDERS: PCP Family Medicine; Visit Provider Registered Nurse Neonatal Intensive Care
DX: R39.9 Unspecified symptoms and signs involving the genitourinary system (principal)
CPT/HCPCS: 81000; 87086

== ENCOUNTER → 2023-09-30 10:57 | Outpatient (BNVA) | payer MEDICARE, SELFPAY ==
[2021-07-01 15:36] VITALS: BP 120/77; BMI 30.7
== END ==
PROVIDERS: PCP Family Medicine; Visit Provider Registered Nurse Neonatal Intensive Care
DX: R39.9 Unspecified symptoms and signs involving the genitourinary system (principal)
CPT/HCPCS: 81000; 87086